=== PATIENT | female | born 2000 | race Hispanic/Latino ===

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

== ENCOUNTER 2024-02-17 22:11 | Emergency (ER) | payer OTHER ==
--- OUTSIDE RECORDS SUMMARY | 2024-02-17 22:22 | XMS REPORT | Continuity of Care Document ---
Author Name Unknown Address [address] [facility] [address] [place] [address] [facility] thconnect Address [address] [facility] [address] [place] [address] Care Team Providers Care Service Electrician Name Role Phone PCP, PATIENT DOES NOT HAVE A Primary Care Physic magui Unavailable GENNA ANG Attending Clinician Unavailable Genna Ang NP Attending Clinician [phone] Jimena Lara MD Attending Clinician [phone] Unknown, Attending Attending Clinician Unavailab JIMENA Law Attending Clinician Unavailable ALLIE DIAS Attending Clinician Unavailable ALLIE DIAS Attending Clinician Unavailable Allie Dias MD Attending Clinician [phone] Jimena Lara MD Attending Clinician [phone] JOSE MANUEL WALDRON Attending Clinician Unavailable JOSE MANUEL WALDRON Attending Clinician Unavailable ANISHA MORENO Attending Clinician Unavailable ANISHA MORENO Attending Clinician Unavailable Unknown, Attending Attending Clinician Unavailab Román Aguilar Attending Clinician [phone] ROMÁN MOON Attending Clinician Unavailable Basil Amaro PA-C Attending Clinician [phone] BASIL AMARO Attending Clinician Unavailable Doctor Unassigned, [place] Attending Clinician U navailable EVA HENRY Attending Clinician Unavailable Eva Henry MD Attending Clinician [phone] UBALDO ONEILL Attending Clinician Unavailable Ubaldo Dooley S Attending Clinician [phone] Lelo NAIDU, Sofia Attending Clinician [phone] Nurse, [facility] Attending Clinician U navailable UNKNOWN, ATTENDING Attending Clinician Unavailab trent Vinson MD, Master Rodriguez Attending Clinician [phone] Marques SHERMAN, Tamara Wong Attending Clinician Unavaila MASTER Ruvalcaba Attending Clinician Unavailable SOFIA LIND Attending Clinician Unavailable Maribel Yeager RN Attending Clinician Unavailable MORENA UMANA Attending Clinician Unavailable Dong PHOTOGRAPHIC PROCESS ATTENDANT, Morena Attending Clinician [phone] KEYLA EARLY Attending Clinician Unavailable Sharath NAIDU, Keyla Mcintosh Attending Clinician [phone] Ang Carlos MD Attending Clinician [phone] Norm SHERMAN, Robbin Attending Clinician Unavailab trent Andino, Rey [facility] Attending Clinician Un available Angi Romano MD Attending Clinician [phone] ANGI ROMANO Attending Clinician Unavailable ANGI ROMANO Attending Clinician Unavailable Room, [facility] Attending Clinician Unavailable CARLOS NOEL Attending Clinician Unavailroosevelt Noel MD, Cralos Attending Clinician [phone] Urbano Jimenez MD Attending Clinician [phone] Arya Toledo MD Attending Clinician [phone] Ultrasound, [facility] Attending Clinician UnavailAsher Ascencio MD Attending Clinician +[phone] ASHER HOROWITZ Attending Clinician Unavailable 2, [facility] Attending Clinician Unavailable Nurse, [facility] Attending Clinician Un available Lanie Hanna Attending Clinician UnavailNADEGE Parry Attending Clinician Unav ailable Ultrasound, [facility] Attending Clinician Unavaila shania Tracy MD, Nadege Attending Clinician + Daysi PHOTOGRAPHIC PROCESS ATTENDANT, Amina Wong Attending Clinician [phone] Tyree Posada Attending Clinician Unavailable BENITO FINE Attending Clinician Unavailable Neno CHOWDHURY, Angelo Farr Attending Clinician [phone] Benito Fine MD Attending Clinician [phone] Pob, [facility] Main Attending Clinician UnavailEMILEE Peraza Attending Clinician Unavailroosevelt Macias PHOTOGRAPHIC PROCESS ATTENDANT, Emilee Attending Clinician [phone] GABRIEL LAWLER Attending Clinician Unavailable Bucky PHOTOGRAPHIC PROCESS ATTENDANT, Gabriel Attending Clinician [phone] Shawn SHERMAN, Jazmin Padilla Attending Clinician Unavailab le Only, Ang Db Test Attending Clinician Unavailroosevelt German RN, Erica Sanchez Attending Clinician Unavaila shania Jasso PA-C, Yesenia Attending Clinician YESENIA JASSO Attending Clinician Unavailable CARLOS NOEL Admitting Clinician UnavailGENNA Linares Admitting Clinician Unavailable JOSE MANUEL WALDRON Admitting Clinician Unavailable EVA HENRY Admitting Clinician Unavailable UBALDO ONEILL Admitting Clinician Unavailable KEYLA EARLY Admitting Clinician Unavailable Keyla Early MD Admitting Clinician Carlos Noel MD Admitting Clinician [phone] Payers Payer Name Policy Type Policy Number Effective Date Expirati on Date Source [place] [employer] [employer] [facility] [id number] 2015 00:00:00 [facility] [id number] 2021 00:00:00 [place] [employer] [id number] 2021 00:00:00 [place] [id number] 2021 00:00:00 Problems Condition Name Condition Details Condition Category Status Onset Date Resolution Date Last Treatment Date Treating Clinician Comments Source 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 Rec[facility] 2- 00:00: 00 [facility] Maternal anemia, with delivery Maternal anemia, with delivery Disease Active 2021-03 00:00: 00 [facility] 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 patient had [facility] S/P myringotom y with insertion of tube S/P myringotom y with insertion of tube Disease Active 09-19 00:00: 00 [facility] S/P myringotom y with insertion of tube S/P myringotom y with insertion of tube Disease Resolve d 7- 00:00: 00 2022-04-30 00:00:00 2022-04-30 15:17:54 [facility] Allergic rhinitis Allergic rhinitis Disease Resolve d 2006-03 2-20 00:00: 00 2022-04-30 00:00:00 2022-04-30 15:17:59 Overview: Formattin g of this note might be different from the original. ICD10 Diagnosis Term Book Jogger Utility [facility] Maternal anemia, with delivery Maternal anemia, with delivery Disease Resolve d 2021-03 00:00: 00 2022-04-03 00:00:00 2022-04-03 13:11:19 [facility] Liveborn infant, of samson , born in hospital by vaginal delivery Liveborn , of samson , born in hospital by vaginal delivery Disease Resolve d 2021-03 2- 00:00: 00 2022-04-03 00:00:00 2022-04-03 13:11:17 [facility] Vaginal bleeding in , third trimester Vaginal bleeding in , third trimester Disease Resolve d 2021-03 2-25 00:00: 00 2022-04-03 00:00:00 2022-04-03 13:11:11 [facility] 36 weeks gestation of 36 weeks gestation of Disease Resolve d 2021-03 2- 00:00: 00 2022-04-03 00:00:00 2022-04-03 13:11:16 [facility] Placental abruption Placental abruption Disease Resolve d 2021-03 2-09 00:00: 00 2022-04-03 00:00:00 2022-04-03 13:11:06 [facility] High risk , antepartum High risk , antepartum Disease Resolve d 0 5- 00:00: 00 2022-04-03 00:00:00 2022-04-03 13:11:07 [facility] Vaginal bleeding during , antepartum Vaginal bleeding during , antepartum Disease Resolve d 2021-03 2-09 00:00: 00 2022-02-21 00:00:00 2022-02-21 14:50:01 [facility] 34 weeks gestation of 34 weeks gestation of Disease Resolve d 2021-03 2-09 00:00: 00 2022-02-21 00:00:00 2022-02-21 14:49:59 [facility] Uterine size-date discrepanc y in third trimester Uterine size-date discrepanc y in third trimester Disease Resolve d 2021-03 1-30 00:00: 00 2022-02-16 00:00:00 2022-02-16 03:03:48 [facility] Constipati on, unspecifie d constipati on type Constipati on, unspecifie d constipati on type Disease Resolve d 0 8-04 00:00: 00 2022-02-16 00:00:00 2022-02-16 03:03:46 [facility] Back pain affecting , antepartum Back pain affecting , antepartum Disease Resolve d 0 8-04 00:00: 00 2022-02-16 00:00:00 2022-02-16 03:03:47 [facility] Nausea Nausea Disease Resolve d 5-13 00:00: 00 2022-02-16 00:00:00 2022-02-16 03:03:50 [facility] of unknown anatomic location of unknown anatomic location Disease Resolve d 5-13 00:00: 00 2021-10-11 00:00:00 2021-10-11 17:52:24 [facility] Cleft palate Cleft palate Disease Resolve d 05-09 00:00: 00 2009-09-19 00:00:00 2021-09-23 00:10:28 [facility] Allergies, Adverse Reactions, Alerts Allergy Name Allergy Type Status Severity Reaction(s) Onset Date Inactive Date Treating Clinician Comments Source CLINDAMY ALFREDO DRUG INGREDI Active High Hives 12-07 00:00: 00 [facility] Clindamy alfredo Propensi ty to adverse reaction s Active Hives 12-07 00:00: 00 [facility] CEPHALOS PORINS Drug Class Active Unknown-Cmnt 05-09 00:00: 00 [facility] Cephalos porins Propensi ty to adverse reaction s Active Unknown - See comments 05-09 00:00: 00 No reaction listed on psl [facility] Cefdinir Propensi ty to adverse reaction s Active 09-24 00:00: 00 [facility] CEFDINIR DRUG INGREDI Active 09-24 00:00: 00 [facility] PENICILL INS Drug Class Active Hives 09-24 00:00: 00 [facility] SULFA (SULFONA MIDE ANTIBIOT ICS) Drug Class Active 09-24 00:00: 00 [facility] Penicill ins Propensi ty to adverse reaction s Active Hives 09-24 00:00: 00 Rash and hives as child [facility] SULFAMET HOXAZOLE -TRIMETH OPRIM DRUG Active Unknown-Cmnt 09-24 00:00: 00 [facility] Sulfamet hoxazole -Trimeth oprim Propensi ty to adverse reaction s Active Unknown - See comments 09-24 00:00: 00 [facility] Penicill ins Propensi ty to adverse reaction s Active 09-24 00:00: 00 [facility] Sulfa (Sulfona mide Antibiot ics) Propensi ty to adverse reaction s Active 09-24 00:00: 00 [facility] Social History Social Habit Start Date Stop Date Quantity Comments Source ASSERTION 2021-07-02 00:00:00 [facility] Alcoholic beverage intake 2023-12-01 00:00:00 2023-12-01 00:00:00 Current non-drinker of alcohol (finding) [facility] History of Social function 2023-07-29 00:00:00 2023-07-29 00:00:00 [facility] Alcohol intake 2023-04-04 00:00:00 2023-04-04 00:00:00 Current non-drinker of alcohol (finding) [facility] Exposure to SARS-CoV-2 (event) 2022-07-22 00:00:00 2022-08-01 14:33:00 Not sure [facility] Tobacco Comment 2021-10-11 00:00:00 2021-10-11 00:00:00 no one smokes in the home [facility] Tobacco use and exposure 2021-10-11 00:00:00 2021-10-11 00:00:00 Smokeless tobacco non-user [facility] Sex assigned at 2002 00:00:00 2000 00:00:00 [facility] Smoking Status Start Date Stop Date Source Never smoked tobacco [facility] Medications Ordered Medication Name Filled Medication Name Start Date Stop Date Current Medication? Ordering Clinician Indication Dosage Frequency Signature (SIG) Comments Components Source ciprofloxac in HCl (CIPRO) tablet 500 mg 11-30 07:38: 00 11-30 07:49 :00 No 500mg 500 mg, Oral, ONCE, 1 dose, On 12/01/23 at 0245, MAX, Reason for Anti-Infec tive: Documented Infection, Documented Infection Site: Urine, Duration of Therapy: Once (ED) [facility] ciprofloxac in HCl (CIPRO) 500 mg tablet 11-30 00:00: 00 12-11 04:59 :00 Yes [id number] 500mg Take 1 tablet by mouth every 12 (twelve) hours for 10 days. [facility] bromphenira mine-pseudo ephedrine-D M (BROMFED DM) 2-30-10 mg/5 mL syrup 10-23 00:00: 00 Yes [id number] 10mL Take 10 mL by mouth 4 (four) times daily as needed for Cold symptoms. [facility] acetaminoph en (TYLENOL) tablet 975 mg 10-15 12:15: 10-15 11:31 :00 No 975mg 975 mg, Oral, ONCE NOW, 1 dose, On Tamy 10/16/23 at 0715, [facility] ketorolac (TORADOL) tablet 20 mg 10-15 12:15: 00 10-15 11:31 :00 No 20mg 20 mg, Oral, ONCE NOW, 1 dose, On Tamy 10/16/23 at 0715, [facility] bupivacaine (preserv free) 0.5% (SENSORCAIN E MPF) injection 10 mL 10-15 12:00: 00 10-15 23:59 :00 No 10mL 10 mL, Infiltrati on, ONCE, 1 dose, On Tamy 10/16/23 at 0700, [facility] gabapentin (NEURONTIN) capsule 300 mg 10-15 11:15: 00 10-15 11:31 :00 No 300mg 300 mg, Oral, ONCE, 1 dose, On Tamy 10/16/23 at 0615, [facility] gabapentin (NEURONTIN) 100 mg capsule 10-15 00:00: 00 Yes [id number] 100mg Take 1 capsule by mouth in the morning and 1 capsule at noon and 1 capsule in the evening. [facility] ketorolac 10 mg tablet 10-15 00:00: 00 Yes [id number] 10mg Take 1 tablet by mouth every 6 (six) hours as needed for Pain (scale 4-6) or Pain (scale 7-10). [facility] acetaminoph en (TYLENOL ARTHRITIS PAIN) 650 mg CR tablet 10-15 00:00: 00 Yes [id number] 650mg Take 1 tablet by mouth every 8 (eight) hours as needed for Pain. [facility] ondansetron (ZOFRAN-ODT ) disintegrat ing tablet 4 mg 08-01 05:45: 00 08-01 04:55 :00 No 4mg 4 mg, Oral, ONCE, 1 dose, On 08/02/23 at 0045, Routine [facility] ondansetron 4 mg disintegrat ing tablet 07-31 00:00: 00 Yes [id number] 4mg Take 1 tablet by mouth every 8 (eight) hours as needed for Nausea and Vomiting (N/V) for up to 9 doses. [facility] azithromyci n 250 mg tablet 07-31 00:00: 00 08-04 04:59 :00 No [id number] 500mg Take 2 tablets by mouth in the morning for 3 days. [facility] dexamethaso ne sod phos PF injection 10 mg 07-30 05:00: 00 07-30 04:57 :00 No 10mg 10 mg, Oral, ONCE, 1 dose, On Tamy 07/31/23 at 0000, 1 mL [facility] methylPREDN ISolone (MEDROL, SARA,) 4 mg tablets 07-28 00:00: 00 Yes [id number] 99100 Take by mouth SEE-INSTRU CTIONS. follow package directions [facility] azelastine 137 mcg (0.1 %) nasal spray 07-28 00:00: 00 Yes [id number] 1{spray } Use 1 [place] in each nostril in the morning and 1 [place] in the evening. Use in each nostril as directed [facility] fluticasone propionate 50 mcg/actuati on nasal spray 07-28 00:00: 00 Yes [id number] 1{spray } Use 1 [place] in each nostril in the morning. [facility] bromphenira mine-pseudo ephedrine-D M (BROMFED DM) 2-30-10 mg/5 mL syrup 07-28 00:00: 00 10-23 00:00 :00 No [id number] 10mL Take 10 mL by mouth 4 (four) times daily as needed for Cold symptoms or Congestion /Allergies . [facility] promethazin e-dextromet horphan 6.25-15 mg/5 mL syrup 04-04 00:00: 00 04-15 05:59 :00 No [id number] 5mL Take 5 mL by mouth 4 (four) times daily for 10 days. [facility] triamcinolo ne acetonide 0.1 % ointment 11-28 00:00: 00 Yes [id number] Apply to area(s) 2 (two) times daily. [facility] clotrimazol e 1 % topical cream 11-28 00:00: 00 Yes [id number] Apply to area(s) at bedtime. [facility] meloxicam 7.5 mg tablet 11-13 00:00: 00 Yes [id number] 7.5mg Take 1 tablet by mouth once daily as needed for Pain (scale 4-6). [facility] erythromyci n base 500 mg tablet 03-19 00:00: 00 03-27 05:59 :00 No [id number] 500mg Take 1 tablet by mouth in the morning and 1 tablet in the evening. Do all this for 7 days. [facility] vitamin w/FA tablet 2021-03 00:00: 05-07 00:00 :00 No [id number] 1{tbl} Take 1 tablet by mouth in the morning. [facility] docusate 100 mg capsule 2021-03 00:00: 00 05-07 00:00 :00 No [id number] 200mg Take 2 capsules by mouth once daily as needed for Constipati on. [facility] ferrous sulfate 325 mg (65 mg iron) tablet 2021-03 00:00: 00 05-07 00:00 :00 No [id number] 325mg Take 1 tablet by mouth in the morning and 1 tablet in the evening. [facility] ibuprofen 600 mg tablet 2021-03 00:00: 00 05-07 00:00 :00 No [id number] 600mg Take 1 tablet by mouth every 6 (six) hours as needed (Pain). Take with food or milk. [facility] witch Nick (TUCKS) 50 % topical pad 2021-03 07:21: 54 Yes Topical, Q4HPRN, Starting on Fri03/05/22 at 0121, Until Discontinu ed, Routine, rectal/hem orrhoidal pain [facility] HYDROcodone -acetaminop hen (NORCO 5) 5-325 mg tablet 1 tablet 2021-03 07:21: 54 Yes 1{tbl} 1 tablet, Oral, Q6HPRN, Starting on Fri03/05/22 at 0121, Until Discontinu ed, Routine, Pain (scale 7-10) [facility] ibuprofen (IBU) tablet 600 mg 2021-03 07:21: 54 Yes 600mg 600 mg, Oral, Q6HPRN, Starting on Fri03/05/22 at 0121, Until Discontinu ed, Routine, Pain (scale 4-6) [facility] acetaminoph en (TYLENOL) tablet 650 mg 2021-03 07:21: 54 Yes 650mg 650 mg, Oral, Q6HPRN, Starting on Fri03/05/22 at 0121, Until Discontinu ed, Routine, Pain (scale 1-3) [facility] diphenhydrA MINE (BENADRYL) tablet 25 mg 2021-03 07:21: 54 Yes 25mg 25 mg, Oral, Q6HPRN, Starting on Fri03/05/22 at 0121, Until Discontinu ed, Routine, Sleep, Itching [facility] ondansetron (ZOFRAN (PF)) injection 4 mg 2021-03 07:21: 54 Yes 4mg 4 mg, Slow IV Push, Q8HPRN, Starting on Fri03/05/22 at 0121, Until Discontinu ed, Routine, Nausea and Vomiting (N/V) [facility] simethicone (GAS RELIEF (SIMETHICON E)) chewable tablet 160 mg 2021-03 07:21: 54 Yes 160mg 160 mg, Oral, PC+HSPRN, Starting on Fri03/05/22 at 012, Until Discontinu ed, Routine, Gas [facility] docusate (COLACE) capsule 200 mg 2021-03 07:21: 54 Yes 200mg 200 mg, Oral, QDAILYPRN, Starting on Fri03/05/22 at 0121, Until Discontinu ed, Routine, Constipati on [facility] magnesium hydroxide (MILK OF MAGNESIA) 400 mg/5 mL suspension 30 mL 2021-03 07:21: 54 Yes 30mL 30 mL, Oral, QDAILYPRN, Starting on Fri03/05/22 at 012, Until Discontinu ed, Routine, Constipati on [facility] benzocaine- menthol (DERMOPLAST ) 20-0.5 % topical spray 2021-03 07:21: 54 Yes Topical, PRN, Starting on Fri03/05/22 at 0121, Until Discontinu ed, Routine, Perineum discomfort [facility] bupivacaine (preserv free) (SENSORCAIN E MPF) 0.25 % (2.5 mg/mL) injection 2021-03 16:44: 00 Yes Caudal Block, ONCE INTRA PROCEDURE, Starting on Fri03/04/22 at 1044, Until Discontinu ed, Routine, Intra-op [facility] PIB fentaNYL-ro pivacaine 2 mcg/mL-0.1 % (PF) in NS 200 mL epidural infusion RTU 2021-03 15:06: 00 Yes Epidural, CONTINUOUS PRN, Starting on Fri03/04/22 at 0906, Until Discontinu ed, Routine, Intra-op [facility] butorphanol (STADOL) injection 2 mg 2021-03 21:09: 49 03-05 07:21 :57 No 2mg 2 mg, IV Push, Q2HPRN, Starting on Fri03/03/22 at 1509, Until Fri03/05/22 at 0121, Routine, Pain (scale 4-6), Pain (scale 7-10) [facility] oxytocin (PITOCIN) 30 units in NS 500 mL IV infusion 2021-03 18:09: 30 03-05 07:21 :57 No 2mU/min at 2-40 mL/hr, IV Infusion, TITRATE, Starting on Fri03/03/22 at 1209, Until Fri03/05/22 at 0121, MAX [facility] FENTanyl PF (SUBLIMAZE (PF)) injection 100 mcg 2021-03 17:13: 22 03-05 07:21 :57 No 100ug 100 mcg, Slow IV Push, Q1HPRN, Starting on Fri03/03/22 at 1113, Until Fri03/05/22 at 0121, Routine, Pain (scale 4-6), Pain (scale 7-10) [facility] ondansetron (ZOFRAN (PF)) injection 4 mg 2021-03 17:12: 08 03-05 07:21 :57 No 4mg 4 mg, Slow IV Push, Q6HPRN, Starting on Fri03/03/22 at 1112, Until Fri03/05/22 at 0121, Routine, Nausea and Vomiting (N/V) [facility] lactated ringers IV infusion 500 mL 2021-03 17:09: 30 03-05 07:21 :57 No 500mL at 999 mL/hr, 500 mL, IV Infusion, PRN - SEE INSTRUCTIO NS, Starting on Fri03/03/22 at 1109, Until Fri03/05/22 at 0121, Routine [facility] D5W-LR IV infusion 1,000 mL 2021-03 17:09: 30 03-05 07:21 :57 No 1000mL at 1-125 mL/hr, IV Infusion, TITRATE, Starting on Fri03/03/22 at 1109, Until Fri03/05/22 at 0121, Routine [facility] sodium citrate-cit hoang acid (BICITRA) 500-334 mg/5 mL solution 30 mL 2021-03 17:09: 30 03-03 19:43 :00 No 30mL 30 mL, Oral, PRE-PROCED URE ONCE, 1 dose, Starting on Fri03/03/22 at 1109, Until Fri03/03/22 at 1343, Routine, Surgery/Pr ocedure [facility] No known medications 2021-03 13:25: 21 No No known medication s [facility] No known medications 2021-03 13:11: 23 No No known medication s [facility] ZYRTEC ORAL 2021-03 11:33: 42 02-18 00:00 :00 No Take by mouth. [facility] cyclobenzap rine (FLEXERIL) tablet 10 mg 2021-03 02:00: 00 Yes 10mg 10 mg, Oral, TID, First dose on Fri02/17/22 at 2000, Until Discontinu ed, Routine [facility] metroNIDAZO LE 500 mg tablet 2021-03 00:00: 00 02-28 00:00 :00 No [id number] 500mg Take 1 tablet by mouth every 12 (twelve) hours. [facility] docusate (COLACE) capsule 100 mg 2021-03 15:00: 00 Yes 100mg 100 mg, Oral, DAILY, First dose on Fri02/17/22 at 0900, Until Discontinu ed, Routine [facility] metroNIDAZO LE (FLAGYL) tablet 500 mg 2021-03 14:00: 00 02-24 13:59 :00 No 500mg 500 mg, Oral, Q12H, 14 doses, First dose on 02/17/22 at 0800, Last dose on 02/23/22 at 2000, Routine
Reason for Anti-Infec tive: Empiric Therapy for Suspected Infection< br>Empiric Therapy Site: Pelvic
Duration of therapy: 5 days [facility] docusate (COLACE) capsule 100 mg 2021-03 04:00: 00 02-17 03:19 :00 No 100mg 100 mg, Oral, ONCE, 1 dose, On 02/16/22 at 2200, Routine [facility] acetaminoph en (TYLENOL) tablet 650 mg 2021-03 02:29: 05 Yes 650mg 650 mg, Oral, Q6HPRN, Starting on 02/16/22 at 2028, Until Discontinu ed, Routine, Pain (scale 1-3), Pain (scale 4-6) [facility] betamethaso ne acet,sod phos (CELESTONE SOLUSPAN) 6 mg/mL injection 12 mg 2021-03 21:00: 00 02-16 20:58 :00 No 12mg 12 mg, Intramuscu lar, Q24H, 1 dose, First dose on 02/16/22 at 1500, Routine [facility] acetaminoph en (TYLENOL) tablet 650 mg 2021-03 17:00: 00 02-16 16:06 :00 No 650mg 650 mg, Oral, ONCE, 1 dose, On 02/16/22 at 1100, Routine [facility] vancomycin (VANCOCIN) 1,500 mg in NaCl 0.9% (NS) 500 mL VIAL-MATE IV piggyback 2021-03 06:15: 00 02-16 14:21 :45 No 20mg/kg 1,500 mg (rounded from 1,460 mg = 20 mg/kg ?73 kg), IV Piggyback, Q8H ABX, 3 doses, First dose (after last modificati on) on 02/16/22 at 0015, Last dose on 02/16/22 at 1615, Administer over 2 Hours, 500 mL
Reas on for Anti-Infec tive: Empiric Non-Surgic al Prophylaxi s
Durat ion of therapy: 72 hours [facility] acetaminoph en (TYLENOL) tablet 1,000 mg 2021-03 06:15: 00 02-16 05:23 :00 No 1000mg 1,000 mg, Oral, ONCE, 1 dose, On 02/16/22 at 0015, Routine [facility] famotidine (PEPCID AC) tablet 40 mg 2021-03 06:00: 00 02-16 06:12 :00 No 40mg 40 mg, Oral, ONCE, 1 dose, On 02/16/22 at 0000, Routine [facility] diphenhydrA MINE (BENADRYL) tablet 50 mg 2021-03 06:00: 00 02-16 06:12 :00 No 50mg 50 mg, Oral, ONCE, 1 dose, On 02/16/22 at 0000, Routine [facility] sodium citrate-cit hoang acid (BICITRA) 500-334 mg/5 mL solution 30 mL 2021-03 01:36: 18 Yes 30mL 30 mL, Oral, PRE-PROCED URE ONCE, 1 dose, Starting on Fri02/15/22 at 1936, Until Discontinu ed, Routine, Surgery/Pr ocedure [facility] lidocaine 1% (XYLOCAINE) 10 mg/mL (1 %) injection 50 mL 2021-03 01:36: 18 Yes 50mL 50 mL, Infiltrati on, PRN - SEE INSTRUCTIO NS, Starting on Fri02/15/22 at 1936, Until Discontinu ed, Routine, Local anesthesia , For laceration repair only as a local anesthetic as indicated. [facility] lidocaine 1% (PF) (XYLOCAINE) injection 0.3 mL 2021-03 01:36: 18 Yes .3mL 0.3 mL, Infiltrati on, PRN - SEE INSTRUCTIO NS, Starting on Fri02/15/22 at 1936, Until Discontinu ed, Routine, Local anesthesia , For IV line placement only as a local anesthetic . [facility] lactated ringers IV infusion 500 mL 2021-03 01:36: 18 Yes 500mL at 999 mL/hr, 500 mL, IV Infusion, PRN - SEE INSTRUCTIO NS, Starting on Fri02/15/22 at 1936, Until Discontinu ed, Routine [facility] D5W-LR IV infusion 1,000 mL 2021-03 01:36: 18 Yes 1000mL at 1-125 mL/hr, IV Infusion, TITRATE, Starting on Fri02/15/22 at 193, Until Discontinu ed, Routine [facility] proMETHazin e (PHENERGAN) 25 mg in NS 50 mL IV piggyback (CNR) 2021-03 01:30: 00 02-16 05:23 :00 No 25mg 25 mg, IV Piggyback, at 200 mL/hr Administer over 15 Minutes, ONCE, 1 dose, On Fri02/15/22 at 1930, Routine [facility] butorphanol (STADOL) injection 1 mg 2021-03 01:30: 00 02-16 01:48 :00 No 1mg 1 mg, Intravenou s, ONCE, 1 dose, On Fri02/15/22 at 1930, Routine [facility] vancomycin (VANCOCIN) 1,500 mg in NaCl 0.9% (NS) 500 mL VIAL-MATE IV piggyback 2021-03 22:15: 00 02-16 01:35 :40 No 20mg/kg 1,500 mg (rounded from 1,460 mg = 20 mg/kg ?73 kg), IV Piggyback, Q8H ABX, 9 doses, First dose on Fri02/15/22 at 1615, Last dose on Fri02/18/22 at 0815, Administer over 90 Minutes, 500 mL
Reas on for Anti-Infec tive: Documented Infection< br>Documen rhonda Infection Site: Pelvic
Duration of Therapy: Other (see Comments) [facility] betamethaso ne acet,sod phos (CELESTONE SOLUSPAN) 6 mg/mL injection 12 mg 2021-03 22:00: 00 02-16 01:35 :40 No 12mg 12 mg, Intramuscu lar, Q24H, 2 doses, First dose on Fri02/15/22 at 1600, Last dose on Fri02/16/22 at 1600, Routine [facility] FENTanyl PF (SUBLIMAZE (PF)) injection 50 mcg 2021-03 21:45: 00 02-15 21:55 :00 No 50ug 50 mcg, Slow IV Push, ONCE, 1 dose, On Fri02/15/22 at 1545, Routine [facility] D5W-LR IV infusion 1,000 mL 2021-03 21:03: 08 02-16 01:35 :40 No 1000mL at 1-125 mL/hr, IV Infusion, TITRATE, Starting on Fri02/15/22 at 1503, Until Fri02/15/22 at 1935, Routine [facility] NaCl 0.9% (NS) IV infusion 1,000 mL 2021-03 21:00: 00 02-15 20:20 :00 No 1000mL at 999 mL/hr, IV Infusion, ONCE, 1 dose, On Fri02/15/22 at 1500, Routine [facility] ZYRTEC ORAL 2021-03 13:26: 31 Yes Take by mouth. [facility] vit no.124/iron /folic ( VITAMIN ORAL) 2021-03 14:47: 01 01-24 00:00 :00 No Take by mouth. [facility] PNV 67-iron ps-folate no.1-dha (VITAFOL ULTRA) 29 mg iron- 1 mg-200 mg Cap 2021-03 00:00: 00 02-18 00:00 :00 No 1{capsu le} Take 1 capsule by mouth daily. [facility] magnesium oxide 400 mg (241.3 mg magnesium) tablet 2021-03 00:00: 00 02-18 00:00 :00 No 400mg Take 1 tablet by mouth at bedtime. [facility] vit no.124/iron /folic ( VITAMIN ORAL) 2021-03 15:58: 54 Yes Take by mouth. [facility] PNV 102-iron-fo late-dha (VITAFOL FE PLUS) 90 mg iron- 1 mg-200 mg Cap 2021-03 0 00:00: 00 01-24 00:00 :00 No [id number] Take 1 TAB-CAP/M2 by mouth daily. [facility] ZYRTEC ORAL 9 13:15: 53 Yes Take by mouth. [facility] fluconazole (DIFLUCAN) 200 mg tablet 10-14 00:00: 00 02-06 00:00 :00 No [id number] 200mg Take 1 tablet by mouth in the morning. [facility] azithromyci n 500 mg tablet 10-14 00:00: 00 02-06 00:00 :00 No [id number] 500mg Take 1 tablet by mouth in the morning. [facility] ZYRTEC ORAL 08-30 11:23: 16 Yes Take by mouth. [facility] azithromyci n 500 mg tablet 18 00:00: 00 08-31 04:59 :00 No [id number] 500mg Take 1 tablet by mouth daily for 5 days. [facility] pyridoxine, VITAMIN B-6, (VITAMIN B-6) 25 mg tablet 07-20 00:00: 00 02-06 00:00 :00 No [id number] 25mg Take 1 tablet by mouth every 6 (six) hours as needed for Nausea and Vomiting (N/V). [facility] doxylamine (UNISOM, DOXYLAMINE, ) 25 mg tablet 07-20 00:00: 00 02-06 00:00 :00 No [id number] 25mg Take 1 tablet by mouth at bedtime as needed for Nausea and Vomiting (N/V). [facility] vit no.124/iron /folic ( VITAMIN ORAL) -12 15:10: 58 Yes Take by mouth. [facility] Immunizations Ordered Immunization Name Filled Immunization Name Date Status Comments Source TDAP 2022-02-21 00:00:00 Completed [facility] TDAP 2022-02-21 00:00:00 Completed [facility] TDAP 2022-02-21 00:00:00 Completed [facility] TDAP 2022-02-21 00:00:00 Completed [facility] TDAP 2022-02-21 00:00:00 Completed [facility] TDAP 2022-02-21 00:00:00 Completed [facility] TDAP 2022-02-21 00:00:00 Completed [facility] TDAP 2022-02-21 00:00:00 Completed [facility] TDAP 2022-02-21 00:00:00 Completed [facility] TDAP 2022-02-21 00:00:00 Completed [facility] TDAP 2022-02-21 00:00:00 Completed [facility] TDAP 2022-02-21 00:00:00 Completed [facility] TDAP 2022-02-21 00:00:00 Completed [facility] TDAP 2022-02-21 00:00:00 Completed [facility] TDAP 2022-02-21 00:00:00 Completed [facility] TDAP 2022-02-21 00:00:00 Completed [facility] TDAP 2022-02-21 00:00:00 Completed [facility] TDAP 2022-02-21 00:00:00 Completed [facility] TDAP 2022-02-21 00:00:00 Completed [facility] TDAP 2022-02-21 00:00:00 Completed [facility] TDAP 2022-02-21 00:00:00 Completed [facility] TDAP 2022-02-21 00:00:00 Completed [facility] TDAP 2022-02-21 00:00:00 Completed [facility] TDAP 2022-02-21 00:00:00 Completed [facility] TDAP 2022-02-21 00:00:00 Completed [facility] TDAP 2022-02-21 00:00:00 Completed [facility] TDAP 2022-02-21 00:00:00 Completed [facility] TDAP 2022-02-21 00:00:00 Completed [facility] TDAP 2022-02-21 00:00:00 Completed [facility] TDAP 2022-02-21 00:00:00 Completed [facility] TDAP 2022-02-21 00:00:00 Completed [facility] TDAP 2022-02-21 00:00:00 Completed [facility] MMR 2006-11-25 00:00:00 Completed [facility] DTAP 2006-11-25 00:00:00 Completed [facility] Varicella (varivax)(chicken pox) 2006-11-25 00:00:00 Completed [facility] Polio (IPV/OPV) 2006-11-25 00:00:00 Completed [facility] MMR 2006-11-25 00:00:00 Completed [facility] DTAP 2006-11-25 00:00:00 Completed [facility] Varicella (varivax)(chicken pox) 2006-11-25 00:00:00 Completed [facility] Polio (IPV/OPV) 2006-11-25 00:00:00 Completed [facility] MMR 2006-11-25 00:00:00 Completed [facility] DTAP 2006-11-25 00:00:00 Completed [facility] Varicella (varivax)(chicken pox) 2006-11-25 00:00:00 Completed [facility] Polio (IPV/OPV) 2006-11-25 00:00:00 Completed [facility] MMR 2006-11-25 00:00:00 Completed [facility] DTAP 2006-11-25 00:00:00 Completed [facility] Varicella (varivax)(chicken pox) 2006-11-25 00:00:00 Completed [facility] Polio (IPV/OPV) 2006-11-25 00:00:00 Completed [facility] MMR 2006-11-25 00:00:00 Completed [facility] DTAP 2006-11-25 00:00:00 Completed [facility] Varicella (varivax)(chicken pox) 2006-11-25 00:00:00 Completed [facility] Polio (IPV/OPV) 2006-11-25 00:00:00 Completed [facility] MMR 2006-11-25 00:00:00 Completed [facility] DTAP 2006-11-25 00:00:00 Completed [facility] Varicella (varivax)(chicken pox) 2006-11-25 00:00:00 Completed [facility] Polio (IPV/OPV) 2006-11-25 00:00:00 Completed [facility] MMR 2006-11-25 00:00:00 Completed [facility] DTAP 2006-11-25 00:00:00 Completed [facility] Varicella (varivax)(chicken pox) 2006-11-25 00:00:00 Completed [facility] Polio (IPV/OPV) 2006-11-25 00:00:00 Completed [facility] MMR 2006-11-25 00:00:00 Completed [facility] DTAP 2006-11-25 00:00:00 Completed [facility] Varicella (varivax)(chicken pox) 2006-11-25 00:00:00 Completed [facility] Polio (IPV/OPV) 2006-11-25 00:00:00 Completed [facility] MMR 2006-11-25 00:00:00 Completed [facility] DTAP 2006-11-25 00:00:00 Completed [facility] Varicella (varivax)(chicken pox) 2006-11-25 00:00:00 Completed [facility] Polio (IPV/OPV) 2006-11-25 00:00:00 Completed [facility] MMR 2006-11-25 00:00:00 Completed [facility] DTAP 2006-11-25 00:00:00 Completed [facility] Varicella (varivax)(chicken pox) 2006-11-25 00:00:00 Completed [facility] Polio (IPV/OPV) 2006-11-25 00:00:00 Completed [facility] MMR 2006-11-25 00:00:00 Completed [facility] DTAP 2006-11-25 00:00:00 Completed [facility] Varicella (varivax)(chicken pox) 2006-11-25 00:00:00 Completed [facility] Polio (IPV/OPV) 2006-11-25 00:00:00 Completed [facility] MMR 2006-11-25 00:00:00 Completed [facility] DTAP 2006-11-25 00:00:00 Completed [facility] Varicella (varivax)(chicken pox) 2006-11-25 00:00:00 Completed [facility] Polio (IPV/OPV) 2006-11-25 00:00:00 Completed [facility] MMR 2006-11-25 00:00:00 Completed [facility] DTAP 2006-11-25 00:00:00 Completed [facility] Varicella (varivax)(chicken pox) 2006-11-25 00:00:00 Completed [facility] Polio (IPV/OPV) 2006-11-25 00:00:00 Completed [facility] MMR 2006-11-25 00:00:00 Completed [facility] DTAP 2006-11-25 00:00:00 Completed [facility] Varicella (varivax)(chicken pox) 2006-11-25 00:00:00 Completed [facility] Polio (IPV/OPV) 2006-11-25 00:00:00 Completed [facility] MMR 2006-11-25 00:00:00 Completed [facility] DTAP 2006-11-25 00:00:00 Completed [facility] Varicella (varivax)(chicken pox) 2006-11-25 00:00:00 Completed [facility] Polio (IPV/OPV) 2006-11-25 00:00:00 Completed [facility] MMR 2006-11-25 00:00:00 Completed [facility] DTAP 2006-11-25 00:00:00 Completed [facility] Varicella (varivax)(chicken pox) 2006-11-25 00:00:00 Completed [facility] Polio (IPV/OPV) 2006-11-25 00:00:00 Completed [facility] MMR 2006-11-25 00:00:00 Completed [facility] DTAP 2006-11-25 00:00:00 Completed [facility] Varicella (varivax)(chicken pox) 2006-11-25 00:00:00 Completed [facility] Polio (IPV/OPV) 2006-11-25 00:00:00 Completed [facility] MMR 2006-11-25 00:00:00 Completed [facility] DTAP 2006-11-25 00:00:00 Completed [facility] Varicella (varivax)(chicken pox) 2006-11-25 00:00:00 Completed [facility] Polio (IPV/OPV) 2006-11-25 00:00:00 Completed [facility] MMR 2006-11-25 00:00:00 Completed [facility] DTAP 2006-11-25 00:00:00 Completed [facility] Varicella (varivax)(chicken pox) 2006-11-25 00:00:00 Completed [facility] Polio (IPV/OPV) 2006-11-25 00:00:00 Completed [facility] MMR 2006-11-25 00:00:00 Completed [facility] DTAP 2006-11-25 00:00:00 Completed [facility] Varicella (varivax)(chicken pox) 2006-11-25 00:00:00 Completed [facility] Polio (IPV/OPV) 2006-11-25 00:00:00 Completed [facility] MMR 2006-11-25 00:00:00 Completed [facility] DTAP 2006-11-25 00:00:00 Completed [facility] Varicella (varivax)(chicken pox) 2006-11-25 00:00:00 Completed [facility] Polio (IPV/OPV) 2006-11-25 00:00:00 Completed [facility] MMR 2006-11-25 00:00:00 Completed [facility] DTAP 2006-11-25 00:00:00 Completed [facility] Varicella (varivax)(chicken pox) 2006-11-25 00:00:00 Completed [facility] Polio (IPV/OPV) 2006-11-25 00:00:00 Completed [facility] MMR 2006-11-25 00:00:00 Completed [facility] DTAP 2006-11-25 00:00:00 Completed [facility] Varicella (varivax)(chicken pox) 2006-11-25 00:00:00 Completed [facility] Polio (IPV/OPV) 2006-11-25 00:00:00 Completed [facility] MMR 2006-11-25 00:00:00 Completed [facility] DTAP 2006-11-25 00:00:00 Completed [facility] Varicella (varivax)(chicken pox) 2006-11-25 00:00:00 Completed [facility] Polio (IPV/OPV) 2006-11-25 00:00:00 Completed [facility] MMR 2006-11-25 00:00:00 Completed [facility] DTAP 2006-11-25 00:00:00 Completed [facility] Varicella (varivax)(chicken pox) 2006-11-25 00:00:00 Completed [facility] Polio (IPV/OPV) 2006-11-25 00:00:00 Completed [facility] MMR 2006-11-25 00:00:00 Completed [facility] DTAP 2006-11-25 00:00:00 Completed [facility] Varicella (varivax)(chicken pox) 2006-11-25 00:00:00 Completed [facility] Polio (IPV/OPV) 2006-11-25 00:00:00 Completed [facility] MMR 2006-11-25 00:00:00 Completed [facility] DTAP 2006-11-25 00:00:00 Completed [facility] Varicella (varivax)(chicken pox) 2006-11-25 00:00:00 Completed [facility] Polio (IPV/OPV) 2006-11-25 00:00:00 Completed [facility] MMR 2006-11-25 00:00:00 Completed [facility] DTAP 2006-11-25 00:00:00 Completed [facility] Varicella (varivax)(chicken pox) 2006-11-25 00:00:00 Completed [facility] Polio (IPV/OPV) 2006-11-25 00:00:00 Completed [facility] MMR 2006-11-25 00:00:00 Completed [facility] DTAP 2006-11-25 00:00:00 Completed [facility] Varicella (varivax)(chicken pox) 2006-11-25 00:00:00 Completed [facility] Polio (IPV/OPV) 2006-11-25 00:00:00 Completed [facility] MMR 2006-11-25 00:00:00 Completed [facility] DTAP 2006-11-25 00:00:00 Completed [facility] Varicella (varivax)(chicken pox) 2006-11-25 00:00:00 Completed [facility] Polio (IPV/OPV) 2006-11-25 00:00:00 Completed [facility] MMR 2006-11-25 00:00:00 Completed [facility] DTAP 2006-11-25 00:00:00 Completed [facility] Varicella (varivax)(chicken pox) 2006-11-25 00:00:00 Completed [facility] Polio (IPV/OPV) 2006-11-25 00:00:00 Completed [facility] MMR 2006-11-25 00:00:00 Completed [facility] DTAP 2006-11-25 00:00:00 Completed [facility] Varicella (varivax)(chicken pox) 2006-11-25 00:00:00 Completed [facility] Polio (IPV/OPV) 2006-11-25 00:00:00 Completed [facility] MMR 2006-11-25 00:00:00 Completed [facility] DTAP 2006-11-25 00:00:00 Completed [facility] Varicella (varivax)(chicken pox) 2006-11-25 00:00:00 Completed [facility] Polio (IPV/OPV) 2006-11-25 00:00:00 Completed [facility] MMR 2006-11-25 00:00:00 Completed [facility] DTAP 2006-11-25 00:00:00 Completed [facility] Varicella (varivax)(chicken pox) 2006-11-25 00:00:00 Completed [facility] Polio (IPV/OPV) 2006-11-25 00:00:00 Completed [facility] MMR 2006-11-25 00:00:00 Completed [facility] DTAP 2006-11-25 00:00:00 Completed [facility] Varicella (varivax)(chicken pox) 2006-11-25 00:00:00 Completed [facility] Polio (IPV/OPV) 2006-11-25 00:00:00 Completed [facility] MMR 2006-11-25 00:00:00 Completed [facility] DTAP 2006-11-25 00:00:00 Completed [facility] Varicella (varivax)(chicken pox) 2006-11-25 00:00:00 Completed [facility] Polio (IPV/OPV) 2006-11-25 00:00:00 Completed [facility] MMR 2006-11-25 00:00:00 Completed [facility] DTAP 2006-11-25 00:00:00 Completed [facility] Varicella (varivax)(chicken pox) 2006-11-25 00:00:00 Completed [facility] Polio (IPV/OPV) 2006-11-25 00:00:00 Completed [facility] MMR 2006-11-25 00:00:00 Completed [facility] DTAP 2006-11-25 00:00:00 Completed [facility] Varicella (varivax)(chicken pox) 2006-11-25 00:00:00 Completed [facility] Polio (IPV/OPV) 2006-11-25 00:00:00 Completed [facility] MMR 2006-11-25 00:00:00 Completed [facility] DTAP 2006-11-25 00:00:00 Completed [facility] Varicella (varivax)(chicken pox) 2006-11-25 00:00:00 Completed [facility] Polio (IPV/OPV) 2006-11-25 00:00:00 Completed [facility] MMR 2006-11-25 00:00:00 Completed [facility] DTAP 2006-11-25 00:00:00 Completed [facility] Varicella (varivax)(chicken pox) 2006-11-25 00:00:00 Completed [facility] Polio (IPV/OPV) 2006-11-25 00:00:00 Completed [facility] MMR 2006-11-25 00:00:00 Completed [facility] DTAP 2006-11-25 00:00:00 Completed [facility] Varicella (varivax)(chicken pox) 2006-11-25 00:00:00 Completed [facility] Polio (IPV/OPV) 2006-11-25 00:00:00 Completed [facility] MMR 2006-11-25 00:00:00 Completed [facility] DTAP 2006-11-25 00:00:00 Completed [facility] Varicella (varivax)(chicken pox) 2006-11-25 00:00:00 Completed [facility] Polio (IPV/OPV) 2006-11-25 00:00:00 Completed [facility] MMR 2006-11-25 00:00:00 Completed [facility] DTAP 2006-11-25 00:00:00 Completed [facility] Varicella (varivax)(chicken pox) 2006-11-25 00:00:00 Completed [facility] Polio (IPV/OPV) 2006-11-25 00:00:00 Completed [facility] MMR 2006-11-25 00:00:00 Completed [facility] DTAP 2006-11-25 00:00:00 Completed [facility] Varicella (varivax)(chicken pox) 2006-11-25 00:00:00 Completed [facility] Polio (IPV/OPV) 2006-11-25 00:00:00 Completed [facility] MMR 2006-11-25 00:00:00 Completed [facility] DTAP 2006-11-25 00:00:00 Completed [facility] Varicella (varivax)(chicken pox) 2006-11-25 00:00:00 Completed [facility] Polio (IPV/OPV) 2006-11-25 00:00:00 Completed [facility] MMR 2006-11-25 00:00:00 Completed [facility] DTAP 2006-11-25 00:00:00 Completed [facility] Varicella (varivax)(chicken pox) 2006-11-25 00:00:00 Completed [facility] Polio (IPV/OPV) 2006-11-25 00:00:00 Completed [facility] MMR 2006-11-25 00:00:00 Completed [facility] DTAP 2006-11-25 00:00:00 Completed [facility] Varicella (varivax)(chicken pox) 2006-11-25 00:00:00 Completed [facility] Polio (IPV/OPV) 2006-11-25 00:00:00 Completed [facility] MMR 2006-11-25 00:00:00 Completed [facility] DTAP 2006-11-25 00:00:00 Completed [facility] Varicella (varivax)(chicken pox) 2006-11-25 00:00:00 Completed [facility] Polio (IPV/OPV) 2006-11-25 00:00:00 Completed [facility] MMR 2006-11-25 00:00:00 Completed [facility] DTAP 2006-11-25 00:00:00 Completed [facility] Varicella (varivax)(chicken pox) 2006-11-25 00:00:00 Completed [facility] Polio (IPV/OPV) 2006-11-25 00:00:00 Completed [facility] MMR 2006-11-25 00:00:00 Completed [facility] DTAP 2006-11-25 00:00:00 Completed [facility] Varicella (varivax)(chicken pox) 2006-11-25 00:00:00 Completed [facility] Polio (IPV/OPV) 2006-11-25 00:00:00 Completed [facility] MMR 2006-11-25 00:00:00 Completed [facility] DTAP 2006-11-25 00:00:00 Completed [facility] Varicella (varivax)(chicken pox) 2006-11-25 00:00:00 Completed [facility] Polio (IPV/OPV) 2006-11-25 00:00:00 Completed [facility] MMR 2006-11-25 00:00:00 Completed [facility] DTAP 2006-11-25 00:00:00 Completed [facility] Varicella (varivax)(chicken pox) 2006-11-25 00:00:00 Completed [facility] Polio (IPV/OPV) 2006-11-25 00:00:00 Completed [facility] MMR 2006-11-25 00:00:00 Completed [facility] DTAP 2006-11-25 00:00:00 Completed [facility] Varicella (varivax)(chicken pox) 2006-11-25 00:00:00 Completed [facility] Polio (IPV/OPV) 2006-11-25 00:00:00 Completed [facility] MMR 2006-11-25 00:00:00 Completed [facility] DTAP 2006-11-25 00:00:00 Completed [facility] Varicella (varivax)(chicken pox) 2006-11-25 00:00:00 Completed [facility] Polio (IPV/OPV) 2006-11-25 00:00:00 Completed [facility] MMR 2006-11-25 00:00:00 Completed [facility] DTAP 2006-11-25 00:00:00 Completed [facility] Varicella (varivax)(chicken pox) 2006-11-25 00:00:00 Completed [facility] Polio (IPV/OPV) 2006-11-25 00:00:00 Completed [facility] MMR 2006-11-25 00:00:00 Completed [facility] DTAP 2006-11-25 00:00:00 Completed [facility] Varicella (varivax)(chicken pox) 2006-11-25 00:00:00 Completed [facility] Polio (IPV/OPV) 2006-11-25 00:00:00 Completed [facility] MMR 2006-11-25 00:00:00 Completed [facility] DTAP 2006-11-25 00:00:00 Completed [facility] Varicella (varivax)(chicken pox) 2006-11-25 00:00:00 Completed [facility] Polio (IPV/OPV) 2006-11-25 00:00:00 Completed [facility] MMR 2006-11-25 00:00:00 Completed [facility] DTAP 2006-11-25 00:00:00 Completed [facility] Varicella (varivax)(chicken pox) 2006-11-25 00:00:00 Completed [facility] Polio (IPV/OPV) 2006-11-25 00:00:00 Completed [facility] MMR 2006-11-25 00:00:00 Completed [facility] DTAP 2006-11-25 00:00:00 Completed [facility] Varicella (varivax)(chicken pox) 2006-11-25 00:00:00 Completed [facility] Polio (IPV/OPV) 2006-11-25 00:00:00 Completed [facility] DTAP 2005-10-15 00:00:00 Completed [facility] HEPATITIS A 2005-10-15 00:00:00 Completed [facility] Pneumococcal 7 Conjugate, PCV7 (Prevnar7) 2005-10-15 00:00:00 Completed [facility] DTAP 2005-10-15 00:00:00 Completed [facility] HEPATITIS A 2005-10-15 00:00:00 Completed [facility] Pneumococcal 7 Conjugate, PCV7 (Prevnar7) 2005-10-15 00:00:00 Completed [facility] DTAP 2005-10-15 00:00:00 Completed [facility] HEPATITIS A 2005-10-15 00:00:00 Completed [facility] Pneumococcal 7 Conjugate, PCV7 (Prevnar7) 2005-10-15 00:00:00 Completed [facility] DTAP 2005-10-15 00:00:00 Completed [facility] HEPATITIS A 2005-10-15 00:00:00 Completed [facility] Pneumococcal 7 Conjugate, PCV7 (Prevnar7) 2005-10-15 00:00:00 Completed [facility] DTAP 2005-10-15 00:00:00 Completed [facility] HEPATITIS A 2005-10-15 00:00:00 Completed [facility] Pneumococcal 7 Conjugate, PCV7 (Prevnar7) 2005-10-15 00:00:00 Completed [facility] DTAP 2005-10-15 00:00:00 Completed [facility] HEPATITIS A 2005-10-15 00:00:00 Completed [facility] Pneumococcal 7 Conjugate, PCV7 (Prevnar7) 2005-10-15 00:00:00 Completed [facility] DTAP 2005-10-15 00:00:00 Completed [facility] HEPATITIS A 2005-10-15 00:00:00 Completed [facility] Pneumococcal 7 Conjugate, PCV7 (Prevnar7) 2005-10-15 00:00:00 Completed [facility] DTAP 2005-10-15 00:00:00 Completed [facility] HEPATITIS A 2005-10-15 00:00:00 Completed [facility] Pneumococcal 7 Conjugate, PCV7 (Prevnar7) 2005-10-15 00:00:00 Completed [facility] DTAP 2005-10-15 00:00:00 Completed [facility] HEPATITIS A 2005-10-15 00:00:00 Completed [facility] Pneumococcal 7 Conjugate, PCV7 (Prevnar7) 2005-10-15 00:00:00 Completed [facility] DTAP 2005-10-15 00:00:00 Completed [facility] HEPATITIS A 2005-10-15 00:00:00 Completed [facility] Pneumococcal 7 Conjugate, PCV7 (Prevnar7) 2005-10-15 00:00:00 Completed [facility] DTAP 2005-10-15 00:00:00 Completed [facility] HEPATITIS A 2005-10-15 00:00:00 Completed [facility] Pneumococcal 7 Conjugate, PCV7 (Prevnar7) 2005-10-15 00:00:00 Completed [facility] DTAP 2005-10-15 00:00:00 Completed [facility] HEPATITIS A 2005-10-15 00:00:00 Completed [facility] Pneumococcal 7 Conjugate, PCV7 (Prevnar7) 2005-10-15 00:00:00 Completed [facility] DTAP 2005-10-15 00:00:00 Completed [facility] HEPATITIS A 2005-10-15 00:00:00 Completed [facility] Pneumococcal 7 Conjugate, PCV7 (Prevnar7) 2005-10-15 00:00:00 Completed [facility] DTAP 2005-10-15 00:00:00 Completed [facility] HEPATITIS A 2005-10-15 00:00:00 Completed [facility] Pneumococcal 7 Conjugate, PCV7 (Prevnar7) 2005-10-15 00:00:00 Completed [facility] DTAP 2005-10-15 00:00:00 Completed [facility] HEPATITIS A 2005-10-15 00:00:00 Completed [facility] Pneumococcal 7 Conjugate, PCV7 (Prevnar7) 2005-10-15 00:00:00 Completed [facility] DTAP 2005-10-15 00:00:00 Completed [facility] HEPATITIS A 2005-10-15 00:00:00 Completed [facility] Pneumococcal 7 Conjugate, PCV7 (Prevnar7) 2005-10-15 00:00:00 Completed [facility] DTAP 2005-10-15 00:00:00 Completed [facility] HEPATITIS A 2005-10-15 00:00:00 Completed [facility] Pneumococcal 7 Conjugate, PCV7 (Prevnar7) 2005-10-15 00:00:00 Completed [facility] DTAP 2005-10-15 00:00:00 Completed [facility] HEPATITIS A 2005-10-15 00:00:00 Completed [facility] Pneumococcal 7 Conjugate, PCV7 (Prevnar7) 2005-10-15 00:00:00 Completed [facility] DTAP 2005-10-15 00:00:00 Completed [facility] HEPATITIS A 2005-10-15 00:00:00 Completed [facility] Pneumococcal 7 Conjugate, PCV7 (Prevnar7) 2005-10-15 00:00:00 Completed [facility] DTAP 2005-10-15 00:00:00 Completed [facility] HEPATITIS A 2005-10-15 00:00:00 Completed [facility] Pneumococcal 7 Conjugate, PCV7 (Prevnar7) 2005-10-15 00:00:00 Completed [facility] DTAP 2005-10-15 00:00:00 Completed [facility] HEPATITIS A 2005-10-15 00:00:00 Completed [facility] Pneumococcal 7 Conjugate, PCV7 (Prevnar7) 2005-10-15 00:00:00 Completed [facility] DTAP 2005-10-15 00:00:00 Completed [facility] HEPATITIS A 2005-10-15 00:00:00 Completed [facility] Pneumococcal 7 Conjugate, PCV7 (Prevnar7) 2005-10-15 00:00:00 Completed [facility] DTAP 2005-10-15 00:00:00 Completed [facility] HEPATITIS A 2005-10-15 00:00:00 Completed [facility] Pneumococcal 7 Conjugate, PCV7 (Prevnar7) 2005-10-15 00:00:00 Completed [facility] DTAP 2005-10-15 00:00:00 Completed [facility] HEPATITIS A 2005-10-15 00:00:00 Completed [facility] Pneumococcal 7 Conjugate, PCV7 (Prevnar7) 2005-10-15 00:00:00 Completed [facility] DTAP 2005-10-15 00:00:00 Completed [facility] HEPATITIS A 2005-10-15 00:00:00 Completed [facility] Pneumococcal 7 Conjugate, PCV7 (Prevnar7) 2005-10-15 00:00:00 Completed [facility] DTAP 2005-10-15 00:00:00 Completed [facility] HEPATITIS A 2005-10-15 00:00:00 Completed [facility] Pneumococcal 7 Conjugate, PCV7 (Prevnar7) 2005-10-15 00:00:00 Completed [facility] DTAP 2005-10-15 00:00:00 Completed [facility] HEPATITIS A 2005-10-15 00:00:00 Completed [facility] Pneumococcal 7 Conjugate, PCV7 (Prevnar7) 2005-10-15 00:00:00 Completed [facility] DTAP 2005-10-15 00:00:00 Completed [facility] HEPATITIS A 2005-10-15 00:00:00 Completed [facility] Pneumococcal 7 Conjugate, PCV7 (Prevnar7) 2005-10-15 00:00:00 Completed [facility] DTAP 2005-10-15 00:00:00 Completed [facility] HEPATITIS A 2005-10-15 00:00:00 Completed [facility] Pneumococcal 7 Conjugate, PCV7 (Prevnar7) 2005-10-15 00:00:00 Completed [facility] DTAP 2005-10-15 00:00:00 Completed [facility] HEPATITIS A 2005-10-15 00:00:00 Completed [facility] Pneumococcal 7 Conjugate, PCV7 (Prevnar7) 2005-10-15 00:00:00 Completed [facility] DTAP 2005-10-15 00:00:00 Completed [facility] HEPATITIS A 2005-10-15 00:00:00 Completed [facility] Pneumococcal 7 Conjugate, PCV7 (Prevnar7) 2005-10-15 00:00:00 Completed [facility] DTAP 2005-10-15 00:00:00 Completed [facility] HEPATITIS A 2005-10-15 00:00:00 Completed [facility] Pneumococcal 7 Conjugate, PCV7 (Prevnar7) 2005-10-15 00:00:00 Completed [facility] DTAP 2005-10-15 00:00:00 Completed [facility] HEPATITIS A 2005-10-15 00:00:00 Completed [facility] Pneumococcal 7 Conjugate, PCV7 (Prevnar7) 2005-10-15 00:00:00 Completed [facility] DTAP 2005-10-15 00:00:00 Completed [facility] HEPATITIS A 2005-10-15 00:00:00 Completed [facility] Pneumococcal 7 Conjugate, PCV7 (Prevnar7) 2005-10-15 00:00:00 Completed [facility] DTAP 2005-10-15 00:00:00 Completed [facility] HEPATITIS A 2005-10-15 00:00:00 Completed [facility] Pneumococcal 7 Conjugate, PCV7 (Prevnar7) 2005-10-15 00:00:00 Completed [facility] DTAP 2005-10-15 00:00:00 Completed [facility] HEPATITIS A 2005-10-15 00:00:00 Completed [facility] Pneumococcal 7 Conjugate, PCV7 (Prevnar7) 2005-10-15 00:00:00 Completed [facility] DTAP 2005-10-15 00:00:00 Completed [facility] HEPATITIS A 2005-10-15 00:00:00 Completed [facility] Pneumococcal 7 Conjugate, PCV7 (Prevnar7) 2005-10-15 00:00:00 Completed [facility] DTAP 2005-10-15 00:00:00 Completed [facility] HEPATITIS A 2005-10-15 00:00:00 Completed [facility] Pneumococcal 7 Conjugate, PCV7 (Prevnar7) 2005-10-15 00:00:00 Completed [facility] DTAP 2005-10-15 00:00:00 Completed [facility] HEPATITIS A 2005-10-15 00:00:00 Completed [facility] Pneumococcal 7 Conjugate, PCV7 (Prevnar7) 2005-10-15 00:00:00 Completed [facility] DTAP 2005-10-15 00:00:00 Completed [facility] HEPATITIS A 2005-10-15 00:00:00 Completed [facility] Pneumococcal 7 Conjugate, PCV7 (Prevnar7) 2005-10-15 00:00:00 Completed [facility] DTAP 2005-10-15 00:00:00 Completed [facility] HEPATITIS A 2005-10-15 00:00:00 Completed [facility] Pneumococcal 7 Conjugate, PCV7 (Prevnar7) 2005-10-15 00:00:00 Completed [facility] DTAP 2005-10-15 00:00:00 Completed [facility] HEPATITIS A 2005-10-15 00:00:00 Completed [facility] Pneumococcal 7 Conjugate, PCV7 (Prevnar7) 2005-10-15 00:00:00 Completed [facility] DTAP 2005-10-15 00:00:00 Completed [facility] HEPATITIS A 2005-10-15 00:00:00 Completed [facility] Pneumococcal 7 Conjugate, PCV7 (Prevnar7) 2005-10-15 00:00:00 Completed [facility] DTAP 2005-10-15 00:00:00 Completed [facility] HEPATITIS A 2005-10-15 00:00:00 Completed [facility] Pneumococcal 7 Conjugate, PCV7 (Prevnar7) 2005-10-15 00:00:00 Completed [facility] DTAP 2005-10-15 00:00:00 Completed [facility] HEPATITIS A 2005-10-15 00:00:00 Completed [facility] Pneumococcal 7 Conjugate, PCV7 (Prevnar7) 2005-10-15 00:00:00 Completed [facility] DTAP 2005-10-15 00:00:00 Completed [facility] HEPATITIS A 2005-10-15 00:00:00 Completed [facility] Pneumococcal 7 Conjugate, PCV7 (Prevnar7) 2005-10-15 00:00:00 Completed [facility] DTAP 2005-10-15 00:00:00 Completed [facility] HEPATITIS A 2005-10-15 00:00:00 Completed [facility] Pneumococcal 7 Conjugate, PCV7 (Prevnar7) 2005-10-15 00:00:00 Completed [facility] DTAP 2005-10-15 00:00:00 Completed [facility] HEPATITIS A 2005-10-15 00:00:00 Completed [facility] Pneumococcal 7 Conjugate, PCV7 (Prevnar7) 2005-10-15 00:00:00 Completed [facility] DTAP 2005-10-15 00:00:00 Completed [facility] HEPATITIS A 2005-10-15 00:00:00 Completed [facility] Pneumococcal 7 Conjugate, PCV7 (Prevnar7) 2005-10-15 00:00:00 Completed [facility] DTAP 2005-10-15 00:00:00 Completed [facility] HEPATITIS A 2005-10-15 00:00:00 Completed [facility] Pneumococcal 7 Conjugate, PCV7 (Prevnar7) 2005-10-15 00:00:00 Completed [facility] DTAP 2005-10-15 00:00:00 Completed [facility] HEPATITIS A 2005-10-15 00:00:00 Completed [facility] Pneumococcal 7 Conjugate, PCV7 (Prevnar7) 2005-10-15 00:00:00 Completed [facility] DTAP 2005-10-15 00:00:00 Completed [facility] HEPATITIS A 2005-10-15 00:00:00 Completed [facility] Pneumococcal 7 Conjugate, PCV7 (Prevnar7) 2005-10-15 00:00:00 Completed [facility] DTAP 2005-10-15 00:00:00 Completed [facility] HEPATITIS A 2005-10-15 00:00:00 Completed [facility] Pneumococcal 7 Conjugate, PCV7 (Prevnar7) 2005-10-15 00:00:00 Completed [facility] DTAP 2005-10-15 00:00:00 Completed [facility] HEPATITIS A 2005-10-15 00:00:00 Completed [facility] Pneumococcal 7 Conjugate, PCV7 (Prevnar7) 2005-10-15 00:00:00 Completed [facility] DTAP 2005-10-15 00:00:00 Completed [facility] HEPATITIS A 2005-10-15 00:00:00 Completed [facility] Pneumococcal 7 Conjugate, PCV7 (Prevnar7) 2005-10-15 00:00:00 Completed [facility] DTAP 2005-10-15 00:00:00 Completed [facility] HEPATITIS A 2005-10-15 00:00:00 Completed [facility] Pneumococcal 7 Conjugate, PCV7 (Prevnar7) 2005-10-15 00:00:00 Completed [facility] DTAP 2005-10-15 00:00:00 Completed [facility] HEPATITIS A 2005-10-15 00:00:00 Completed [facility] Pneumococcal 7 Conjugate, PCV7 (Prevnar7) 2005-10-15 00:00:00 Completed [facility] DTAP 2005-10-15 00:00:00 Completed [facility] HEPATITIS A 2005-10-15 00:00:00 Completed [facility] Pneumococcal 7 Conjugate, PCV7 (Prevnar7) 2005-10-15 00:00:00 Completed [facility] DTAP 2005-10-15 00:00:00 Completed [facility] HEPATITIS A 2005-10-15 00:00:00 Completed [facility] Pneumococcal 7 Conjugate, PCV7 (Prevnar7) 2005-10-15 00:00:00 Completed [facility] DTAP 2005-03-22 00:00:00 Completed [facility] Pneumococcal 7 Conjugate, PCV7 (Prevnar7) 2005-03-22 00:00:00 Completed [facility] HEPATITIS A 2005-03-22 00:00:00 Completed [facility] DTAP 2005-03-22 00:00:00 Completed [facility] Pneumococcal 7 Conjugate, PCV7 (Prevnar7) 2005-03-22 00:00:00 Completed [facility] HEPATITIS A 2005-03-22 00:00:00 Completed [facility] DTAP 2005-03-22 00:00:00 Completed [facility] Pneumococcal 7 Conjugate, PCV7 (Prevnar7) 2005-03-22 00:00:00 Completed [facility] HEPATITIS A 2005-03-22 00:00:00 Completed [facility] DTAP 2005-03-22 00:00:00 Completed [facility] Pneumococcal 7 Conjugate, PCV7 (Prevnar7) 2005-03-22 00:00:00 Completed [facility] HEPATITIS A 2005-03-22 00:00:00 Completed [facility] DTAP 2005-03-22 00:00:00 Completed [facility] Pneumococcal 7 Conjugate, PCV7 (Prevnar7) 2005-03-22 00:00:00 Completed [facility] HEPATITIS A 2005-03-22 00:00:00 Completed [facility] DTAP 2005-03-22 00:00:00 Completed [facility] Pneumococcal 7 Conjugate, PCV7 (Prevnar7) 2005-03-22 00:00:00 Completed [facility] HEPATITIS A 2005-03-22 00:00:00 Completed [facility] DTAP 2005-03-22 00:00:00 Completed [facility] Pneumococcal 7 Conjugate, PCV7 (Prevnar7) 2005-03-22 00:00:00 Completed [facility] HEPATITIS A 2005-03-22 00:00:00 Completed [facility] DTAP 2005-03-22 00:00:00 Completed [facility] Pneumococcal 7 Conjugate, PCV7 (Prevnar7) 2005-03-22 00:00:00 Completed [facility] HEPATITIS A 2005-03-22 00:00:00 Completed [facility] DTAP 2005-03-22 00:00:00 Completed [facility] Pneumococcal 7 Conjugate, PCV7 (Prevnar7) 2005-03-22 00:00:00 Completed [facility] HEPATITIS A 2005-03-22 00:00:00 Completed [facility] DTAP 2005-03-22 00:00:00 Completed [facility] Pneumococcal 7 Conjugate, PCV7 (Prevnar7) 2005-03-22 00:00:00 Completed [facility] HEPATITIS A 2005-03-22 00:00:00 Completed [facility] DTAP 2005-03-22 00:00:00 Completed [facility] Pneumococcal 7 Conjugate, PCV7 (Prevnar7) 2005-03-22 00:00:00 Completed [facility] HEPATITIS A 2005-03-22 00:00:00 Completed [facility] DTAP 2005-03-22 00:00:00 Completed [facility] Pneumococcal 7 Conjugate, PCV7 (Prevnar7) 2005-03-22 00:00:00 Completed [facility] HEPATITIS A 2005-03-22 00:00:00 Completed [facility] DTAP 2005-03-22 00:00:00 Completed [facility] Pneumococcal 7 Conjugate, PCV7 (Prevnar7) 2005-03-22 00:00:00 Completed [facility] HEPATITIS A 2005-03-22 00:00:00 Completed [facility] DTAP 2005-03-22 00:00:00 Completed [facility] Pneumococcal 7 Conjugate, PCV7 (Prevnar7) 2005-03-22 00:00:00 Completed [facility] HEPATITIS A 2005-03-22 00:00:00 Completed [facility] DTAP 2005-03-22 00:00:00 Completed [facility] Pneumococcal 7 Conjugate, PCV7 (Prevnar7) 2005-03-22 00:00:00 Completed [facility] HEPATITIS A 2005-03-22 00:00:00 Completed [facility] DTAP 2005-03-22 00:00:00 Completed [facility] Pneumococcal 7 Conjugate, PCV7 (Prevnar7) 2005-03-22 00:00:00 Completed [facility] HEPATITIS A 2005-03-22 00:00:00 Completed [facility] DTAP 2005-03-22 00:00:00 Completed [facility] Pneumococcal 7 Conjugate, PCV7 (Prevnar7) 2005-03-22 00:00:00 Completed [facility] HEPATITIS A 2005-03-22 00:00:00 Completed [facility] DTAP 2005-03-22 00:00:00 Completed [facility] Pneumococcal 7 Conjugate, PCV7 (Prevnar7) 2005-03-22 00:00:00 Completed [facility] HEPATITIS A 2005-03-22 00:00:00 Completed [facility] DTAP 2005-03-22 00:00:00 Completed [facility] Pneumococcal 7 Conjugate, PCV7 (Prevnar7) 2005-03-22 00:00:00 Completed [facility] HEPATITIS A 2005-03-22 00:00:00 Completed [facility] DTAP 2005-03-22 00:00:00 Completed [facility] Pneumococcal 7 Conjugate, PCV7 (Prevnar7) 2005-03-22 00:00:00 Completed [facility] HEPATITIS A 2005-03-22 00:00:00 Completed [facility] DTAP 2005-03-22 00:00:00 Completed [facility] Pneumococcal 7 Conjugate, PCV7 (Prevnar7) 2005-03-22 00:00:00 Completed [facility] HEPATITIS A 2005-03-22 00:00:00 Completed [facility] DTAP 2005-03-22 00:00:00 Completed [facility] Pneumococcal 7 Conjugate, PCV7 (Prevnar7) 2005-03-22 00:00:00 Completed [facility] HEPATITIS A 2005-03-22 00:00:00 Completed [facility] DTAP 2005-03-22 00:00:00 Completed [facility] Pneumococcal 7 Conjugate, PCV7 (Prevnar7) 2005-03-22 00:00:00 Completed [facility] HEPATITIS A 2005-03-22 00:00:00 Completed [facility] DTAP 2005-03-22 00:00:00 Completed [facility] Pneumococcal 7 Conjugate, PCV7 (Prevnar7) 2005-03-22 00:00:00 Completed [facility] HEPATITIS A 2005-03-22 00:00:00 Completed [facility] DTAP 2005-03-22 00:00:00 Completed [facility] Pneumococcal 7 Conjugate, PCV7 (Prevnar7) 2005-03-22 00:00:00 Completed [facility] HEPATITIS A 2005-03-22 00:00:00 Completed [facility] DTAP 2005-03-22 00:00:00 Completed [facility] Pneumococcal 7 Conjugate, PCV7 (Prevnar7) 2005-03-22 00:00:00 Completed [facility] HEPATITIS A 2005-03-22 00:00:00 Completed [facility] DTAP 2005-03-22 00:00:00 Completed [facility] Pneumococcal 7 Conjugate, PCV7 (Prevnar7) 2005-03-22 00:00:00 Completed [facility] HEPATITIS A 2005-03-22 00:00:00 Completed [facility] DTAP 2005-03-22 00:00:00 Completed [facility] Pneumococcal 7 Conjugate, PCV7 (Prevnar7) 2005-03-22 00:00:00 Completed [facility] HEPATITIS A 2005-03-22 00:00:00 Completed [facility] DTAP 2005-03-22 00:00:00 Completed [facility] Pneumococcal 7 Conjugate, PCV7 (Prevnar7) 2005-03-22 00:00:00 Completed [facility] HEPATITIS A 2005-03-22 00:00:00 Completed [facility] DTAP 2005-03-22 00:00:00 Completed [facility] Pneumococcal 7 Conjugate, PCV7 (Prevnar7) 2005-03-22 00:00:00 Completed [facility] HEPATITIS A 2005-03-22 00:00:00 Completed [facility] DTAP 2005-03-22 00:00:00 Completed [facility] Pneumococcal 7 Conjugate, PCV7 (Prevnar7) 2005-03-22 00:00:00 Completed [facility] HEPATITIS A 2005-03-22 00:00:00 Completed [facility] DTAP 2005-03-22 00:00:00 Completed [facility] Pneumococcal 7 Conjugate, PCV7 (Prevnar7) 2005-03-22 00:00:00 Completed [facility] HEPATITIS A 2005-03-22 00:00:00 Completed [facility] DTAP 2005-03-22 00:00:00 Completed [facility] Pneumococcal 7 Conjugate, PCV7 (Prevnar7) 2005-03-22 00:00:00 Completed [facility] HEPATITIS A 2005-03-22 00:00:00 Completed [facility] DTAP 2005-03-22 00:00:00 Completed [facility] Pneumococcal 7 Conjugate, PCV7 (Prevnar7) 2005-03-22 00:00:00 Completed [facility] HEPATITIS A 2005-03-22 00:00:00 Completed [facility] DTAP 2005-03-22 00:00:00 Completed [facility] Pneumococcal 7 Conjugate, PCV7 (Prevnar7) 2005-03-22 00:00:00 Completed [facility] HEPATITIS A 2005-03-22 00:00:00 Completed [facility] DTAP 2005-03-22 00:00:00 Completed [facility] Pneumococcal 7 Conjugate, PCV7 (Prevnar7) 2005-03-22 00:00:00 Completed [facility] HEPATITIS A 2005-03-22 00:00:00 Completed [facility] DTAP 2005-03-22 00:00:00 Completed [facility] Pneumococcal 7 Conjugate, PCV7 (Prevnar7) 2005-03-22 00:00:00 Completed [facility] HEPATITIS A 2005-03-22 00:00:00 Completed [facility] DTAP 2005-03-22 00:00:00 Completed [facility] Pneumococcal 7 Conjugate, PCV7 (Prevnar7) 2005-03-22 00:00:00 Completed [facility] HEPATITIS A 2005-03-22 00:00:00 Completed [facility] DTAP 2005-03-22 00:00:00 Completed [facility] Pneumococcal 7 Conjugate, PCV7 (Prevnar7) 2005-03-22 00:00:00 Completed [facility] HEPATITIS A 2005-03-22 00:00:00 Completed [facility] DTAP 2005-03-22 00:00:00 Completed [facility] Pneumococcal 7 Conjugate, PCV7 (Prevnar7) 2005-03-22 00:00:00 Completed [facility] HEPATITIS A 2005-03-22 00:00:00 Completed [facility] DTAP 2005-03-22 00:00:00 Completed [facility] Pneumococcal 7 Conjugate, PCV7 (Prevnar7) 2005-03-22 00:00:00 Completed [facility] HEPATITIS A 2005-03-22 00:00:00 Completed [facility] DTAP 2005-03-22 00:00:00 Completed [facility] Pneumococcal 7 Conjugate, PCV7 (Prevnar7) 2005-03-22 00:00:00 Completed [facility] HEPATITIS A 2005-03-22 00:00:00 Completed [facility] DTAP 2005-03-22 00:00:00 Completed [facility] Pneumococcal 7 Conjugate, PCV7 (Prevnar7) 2005-03-22 00:00:00 Completed [facility] HEPATITIS A 2005-03-22 00:00:00 Completed [facility] DTAP 2005-03-22 00:00:00 Completed [facility] Pneumococcal 7 Conjugate, PCV7 (Prevnar7) 2005-03-22 00:00:00 Completed [facility] HEPATITIS A 2005-03-22 00:00:00 Completed [facility] DTAP 2005-03-22 00:00:00 Completed [facility] Pneumococcal 7 Conjugate, PCV7 (Prevnar7) 2005-03-22 00:00:00 Completed [facility] HEPATITIS A 2005-03-22 00:00:00 Completed [facility] DTAP 2005-03-22 00:00:00 Completed [facility] Pneumococcal 7 Conjugate, PCV7 (Prevnar7) 2005-03-22 00:00:00 Completed [facility] HEPATITIS A 2005-03-22 00:00:00 Completed [facility] DTAP 2005-03-22 00:00:00 Completed [facility] Pneumococcal 7 Conjugate, PCV7 (Prevnar7) 2005-03-22 00:00:00 Completed [facility] HEPATITIS A 2005-03-22 00:00:00 Completed [facility] DTAP 2005-03-22 00:00:00 Completed [facility] Pneumococcal 7 Conjugate, PCV7 (Prevnar7) 2005-03-22 00:00:00 Completed [facility] HEPATITIS A 2005-03-22 00:00:00 Completed [facility] DTAP 2005-03-22 00:00:00 Completed [facility] Pneumococcal 7 Conjugate, PCV7 (Prevnar7) 2005-03-22 00:00:00 Completed [facility] HEPATITIS A 2005-03-22 00:00:00 Completed [facility] DTAP 2005-03-22 00:00:00 Completed [facility] Pneumococcal 7 Conjugate, PCV7 (Prevnar7) 2005-03-22 00:00:00 Completed [facility] HEPATITIS A 2005-03-22 00:00:00 Completed [facility] DTAP 2005-03-22 00:00:00 Completed [facility] Pneumococcal 7 Conjugate, PCV7 (Prevnar7) 2005-03-22 00:00:00 Completed [facility] HEPATITIS A 2005-03-22 00:00:00 Completed [facility] DTAP 2005-03-22 00:00:00 Completed [facility] Pneumococcal 7 Conjugate, PCV7 (Prevnar7) 2005-03-22 00:00:00 Completed [facility] HEPATITIS A 2005-03-22 00:00:00 Completed [facility] DTAP 2005-03-22 00:00:00 Completed [facility] Pneumococcal 7 Conjugate, PCV7 (Prevnar7) 2005-03-22 00:00:00 Completed [facility] HEPATITIS A 2005-03-22 00:00:00 Completed [facility] DTAP 2005-03-22 00:00:00 Completed [facility] Pneumococcal 7 Conjugate, PCV7 (Prevnar7) 2005-03-22 00:00:00 Completed [facility] HEPATITIS A 2005-03-22 00:00:00 Completed [facility] DTAP 2005-03-22 00:00:00 Completed [facility] Pneumococcal 7 Conjugate, PCV7 (Prevnar7) 2005-03-22 00:00:00 Completed [facility] HEPATITIS A 2005-03-22 00:00:00 Completed [facility] DTAP 2005-03-22 00:00:00 Completed [facility] Pneumococcal 7 Conjugate, PCV7 (Prevnar7) 2005-03-22 00:00:00 Completed [facility] HEPATITIS A 2005-03-22 00:00:00 Completed [facility] DTAP 2005-03-22 00:00:00 Completed [facility] Pneumococcal 7 Conjugate, PCV7 (Prevnar7) 2005-03-22 00:00:00 Completed [facility] HEPATITIS A 2005-03-22 00:00:00 Completed [facility] DTAP 2005-03-22 00:00:00 Completed [facility] Pneumococcal 7 Conjugate, PCV7 (Prevnar7) 2005-03-22 00:00:00 Completed [facility] HEPATITIS A 2005-03-22 00:00:00 Completed [facility] DTAP 2005-03-22 00:00:00 Completed [facility] Pneumococcal 7 Conjugate, PCV7 (Prevnar7) 2005-03-22 00:00:00 Completed [facility] HEPATITIS A 2005-03-22 00:00:00 Completed [facility] HIB 4 Dose Schedule 2003-12-27 00:00:00 Completed [facility] MMR 2003-12-27 00:00:00 Completed [facility] Varicella (varivax)(chicken pox) 2003-12-27 00:00:00 Completed [facility] HIB 4 Dose Schedule 2003-12-27 00:00:00 Completed [facility] MMR 2003-12-27 00:00:00 Completed [facility] Varicella (varivax)(chicken pox) 2003-12-27 00:00:00 Completed [facility] HIB 4 Dose Schedule 2003-12-27 00:00:00 Completed [facility] MMR 2003-12-27 00:00:00 Completed [facility] Varicella (varivax)(chicken pox) 2003-12-27 00:00:00 Completed [facility] HIB 4 Dose Schedule 2003-12-27 00:00:00 Completed [facility] MMR 2003-12-27 00:00:00 Completed [facility] Varicella (varivax)(chicken pox) 2003-12-27 00:00:00 Completed [facility] HIB 4 Dose Schedule 2003-12-27 00:00:00 Completed [facility] MMR 2003-12-27 00:00:00 Completed [facility] Varicella (varivax)(chicken pox) 2003-12-27 00:00:00 Completed [facility] HIB 4 Dose Schedule 2003-06-28 00:00:00 Completed [facility] Pediarix (dtap/hep B/ipv) 2003-06-28 00:00:00 Completed [facility] HIB 4 Dose Schedule 2003-06-28 00:00:00 Completed [facility] Pediarix (dtap/hep B/ipv) 2003-06-28 00:00:00 Completed [facility] HIB 4 Dose Schedule 2003-06-28 00:00:00 Completed [facility] Pediarix (dtap/hep B/ipv) 2003-06-28 00:00:00 Completed [facility] HIB 4 Dose Schedule 2003-06-28 00:00:00 Completed [facility] Pediarix (dtap/hep B/ipv) 2003-06-28 00:00:00 Completed [facility] HIB 4 Dose Schedule 2003-06-28 00:00:00 Completed [facility] Pediarix (dtap/hep B/ipv) 2003-06-28 00:00:00 Completed [facility] DTAP 2003-03-18 00:00:00 Completed [facility] HIB 4 Dose Schedule 2003-03-18 00:00:00 Completed [facility] Pneumococcal 7 Conjugate, PCV7 (Prevnar7) 2003-03-18 00:00:00 Completed [facility] Polio (IPV/OPV) 2003-03-18 00:00:00 Completed [facility] DTAP 2003-03-18 00:00:00 Completed [facility] HIB 4 Dose Schedule 2003-03-18 00:00:00 Completed [facility] Pneumococcal 7 Conjugate, PCV7 (Prevnar7) 2003-03-18 00:00:00 Completed [facility] Polio (IPV/OPV) 2003-03-18 00:00:00 Completed [facility] DTAP 2003-03-18 00:00:00 Completed [facility] HIB 4 Dose Schedule 2003-03-18 00:00:00 Completed [facility] Pneumococcal 7 Conjugate, PCV7 (Prevnar7) 2003-03-18 00:00:00 Completed [facility] Polio (IPV/OPV) 2003-03-18 00:00:00 Completed [facility] DTAP 2003-03-18 00:00:00 Completed [facility] HIB 4 Dose Schedule 2003-03-18 00:00:00 Completed [facility] Pneumococcal 7 Conjugate, PCV7 (Prevnar7) 2003-03-18 00:00:00 Completed [facility] Polio (IPV/OPV) 2003-03-18 00:00:00 Completed [facility] DTAP 2003-03-18 00:00:00 Completed [facility] HIB 4 Dose Schedule 2003-03-18 00:00:00 Completed [facility] Pneumococcal 7 Conjugate, PCV7 (Prevnar7) 2003-03-18 00:00:00 Completed [facility] Polio (IPV/OPV) 2003-03-18 00:00:00 Completed [facility] DTAP 2002 00:00:00 Completed [facility] HIB 4 Dose Schedule 2002 00:00:00 Completed [facility] Hep B, Adol or Pedi Dosage 2002 00:00:00 Completed [facility] Pneumococcal 7 Conjugate, PCV7 (Prevnar7) 2002 00:00:00 Completed [facility] Polio (IPV/OPV) 2002 00:00:00 Completed [facility] DTAP 2002 00:00:00 Completed [facility] HIB 4 Dose Schedule 2002 00:00:00 Completed [facility] Hep B, Adol or Pedi Dosage 2002 00:00:00 Completed [facility] Pneumococcal 7 Conjugate, PCV7 (Prevnar7) 2002 00:00:00 Completed [facility] Polio (IPV/OPV) 2002 00:00:00 Completed [facility] DTAP 2002 00:00:00 Completed [facility] HIB 4 Dose Schedule 2002 00:00:00 Completed [facility] Hep B, Adol or Pedi Dosage 2002 00:00:00 Completed [facility] Pneumococcal 7 Conjugate, PCV7 (Prevnar7) 2002 00:00:00 Completed [facility] Polio (IPV/OPV) 2002 00:00:00 Completed [facility] DTAP 2002 00:00:00 Completed [facility] HIB 4 Dose Schedule 2002 00:00:00 Completed [facility] Hep B, Adol or Pedi Dosage 2002 00:00:00 Completed [facility] Pneumococcal 7 Conjugate, PCV7 (Prevnar7) 2002 00:00:00 Completed [facility] Polio (IPV/OPV) 2002 00:00:00 Completed [facility] DTAP 2002 00:00:00 Completed [facility] HIB 4 Dose Schedule 2002 00:00:00 Completed [facility] Hep B, Adol or Pedi Dosage 2002 00:00:00 Completed [facility] Pneumococcal 7 Conjugate, PCV7 (Prevnar7) 2002 00:00:00 Completed [facility] Polio (IPV/OPV) 2002 00:00:00 Completed [facility] DTAP 2002 00:00:00 Completed [facility] HIB 4 Dose Schedule 2002 00:00:00 Completed [facility] Hep B, Adol or Pedi Dosage 2002 00:00:00 Completed [facility] Pneumococcal 7 Conjugate, PCV7 (Prevnar7) 2002 00:00:00 Completed [facility] Polio (IPV/OPV) 2002 00:00:00 Completed [facility] DTAP 2002 00:00:00 Completed [facility] HIB 4 Dose Schedule 2002 00:00:00 Completed [facility] Hep B, Adol or Pedi Dosage 2002 00:00:00 Completed [facility] Pneumococcal 7 Conjugate, PCV7 (Prevnar7) 2002 00:00:00 Completed [facility] Polio (IPV/OPV) 2002 00:00:00 Completed [facility] DTAP 2002 00:00:00 Completed [facility] HIB 4 Dose Schedule 2002 00:00:00 Completed [facility] Hep B, Adol or Pedi Dosage 2002 00:00:00 Completed [facility] Pneumococcal 7 Conjugate, PCV7 (Prevnar7) 2002 00:00:00 Completed [facility] Polio (IPV/OPV) 2002 00:00:00 Completed [facility] DTAP 2002 00:00:00 Completed [facility] HIB 4 Dose Schedule 2002 00:00:00 Completed [facility] Hep B, Adol or Pedi Dosage 2002 00:00:00 Completed [facility] Pneumococcal 7 Conjugate, PCV7 (Prevnar7) 2002 00:00:00 Completed [facility] Polio (IPV/OPV) 2002 00:00:00 Completed [facility] DTAP 2002 00:00:00 Completed [facility] HIB 4 Dose Schedule 2002 00:00:00 Completed [facility] Hep B, Adol or Pedi Dosage 2002 00:00:00 Completed [facility] Pneumococcal 7 Conjugate, PCV7 (Prevnar7) 2002 00:00:00 Completed [facility] Polio (IPV/OPV) 2002 00:00:00 Completed [facility] DTAP 2002 00:00:00 Completed [facility] HIB 4 Dose Schedule 2002 00:00:00 Completed [facility] Hep B, Adol or Pedi Dosage 2002 00:00:00 Completed [facility] Pneumococcal 7 Conjugate, PCV7 (Prevnar7) 2002 00:00:00 Completed [facility] Polio (IPV/OPV) 2002 00:00:00 Completed [facility] DTAP 2002 00:00:00 Completed [facility] HIB 4 Dose Schedule 2002 00:00:00 Completed [facility] Hep B, Adol or Pedi Dosage 2002 00:00:00 Completed [facility] Pneumococcal 7 Conjugate, PCV7 (Prevnar7) 2002 00:00:00 Completed [facility] Polio (IPV/OPV) 2002 00:00:00 Completed [facility] DTAP 2002 00:00:00 Completed [facility] HIB 4 Dose Schedule 2002 00:00:00 Completed [facility] Hep B, Adol or Pedi Dosage 2002 00:00:00 Completed [facility] Pneumococcal 7 Conjugate, PCV7 (Prevnar7) 2002 00:00:00 Completed [facility] Polio (IPV/OPV) 2002 00:00:00 Completed [facility] DTAP 2002 00:00:00 Completed [facility] HIB 4 Dose Schedule 2002 00:00:00 Completed [facility] Hep B, Adol or Pedi Dosage 2002 00:00:00 Completed [facility] Pneumococcal 7 Conjugate, PCV7 (Prevnar7) 2002 00:00:00 Completed [facility] Polio (IPV/OPV) 2002 00:00:00 Completed [facility] DTAP 2002 00:00:00 Completed [facility] HIB 4 Dose Schedule 2002 00:00:00 Completed [facility] Hep B, Adol or Pedi Dosage 2002 00:00:00 Completed [facility] Pneumococcal 7 Conjugate, PCV7 (Prevnar7) 2002 00:00:00 Completed [facility] Polio (IPV/OPV) 2002 00:00:00 Completed [facility] DTAP 2002 00:00:00 Completed [facility] HIB 4 Dose Schedule 2002 00:00:00 Completed [facility] Hep B, Adol or Pedi Dosage 2002 00:00:00 Completed [facility] Pneumococcal 7 Conjugate, PCV7 (Prevnar7) 2002 00:00:00 Completed [facility] Polio (IPV/OPV) 2002 00:00:00 Completed [facility] DTAP 2002 00:00:00 Completed [facility] HIB 4 Dose Schedule 2002 00:00:00 Completed [facility] Hep B, Adol or Pedi Dosage 2002 00:00:00 Completed [facility] Pneumococcal 7 Conjugate, PCV7 (Prevnar7) 2002 00:00:00 Completed [facility] Polio (IPV/OPV) 2002 00:00:00 Completed [facility] DTAP 2002 00:00:00 Completed [facility] HIB 4 Dose Schedule 2002 00:00:00 Completed [facility] Hep B, Adol or Pedi Dosage 2002 00:00:00 Completed [facility] Pneumococcal 7 Conjugate, PCV7 (Prevnar7) 2002 00:00:00 Completed [facility] Polio (IPV/OPV) 2002 00:00:00 Completed [facility] DTAP 2002 00:00:00 Completed [facility] HIB 4 Dose Schedule 2002 00:00:00 Completed [facility] Hep B, Adol or Pedi Dosage 2002 00:00:00 Completed [facility] Pneumococcal 7 Conjugate, PCV7 (Prevnar7) 2002 00:00:00 Completed [facility] Polio (IPV/OPV) 2002 00:00:00 Completed [facility] DTAP 2002 00:00:00 Completed [facility] HIB 4 Dose Schedule 2002 00:00:00 Completed [facility] Hep B, Adol or Pedi Dosage 2002 00:00:00 Completed [facility] Pneumococcal 7 Conjugate, PCV7 (Prevnar7) 2002 00:00:00 Completed [facility] Polio (IPV/OPV) 2002 00:00:00 Completed [facility] DTAP 2002 00:00:00 Completed [facility] HIB 4 Dose Schedule 2002 00:00:00 Completed [facility] Hep B, Adol or Pedi Dosage 2002 00:00:00 Completed [facility] Pneumococcal 7 Conjugate, PCV7 (Prevnar7) 2002 00:00:00 Completed [facility] Polio (IPV/OPV) 2002 00:00:00 Completed [facility] DTAP 2002 00:00:00 Completed [facility] HIB 4 Dose Schedule 2002 00:00:00 Completed [facility] Hep B, Adol or Pedi Dosage 2002 00:00:00 Completed [facility] Pneumococcal 7 Conjugate, PCV7 (Prevnar7) 2002 00:00:00 Completed [facility] Polio (IPV/OPV) 2002 00:00:00 Completed [facility] DTAP 2002 00:00:00 Completed [facility] HIB 4 Dose Schedule 2002 00:00:00 Completed [facility] Hep B, Adol or Pedi Dosage 2002 00:00:00 Completed [facility] Pneumococcal 7 Conjugate, PCV7 (Prevnar7) 2002 00:00:00 Completed [facility] Polio (IPV/OPV) 2002 00:00:00 Completed [facility] DTAP 2002 00:00:00 Completed [facility] HIB 4 Dose Schedule 2002 00:00:00 Completed [facility] Hep B, Adol or Pedi Dosage 2002 00:00:00 Completed [facility] Pneumococcal 7 Conjugate, PCV7 (Prevnar7) 2002 00:00:00 Completed [facility] Polio (IPV/OPV) 2002 00:00:00 Completed [facility] DTAP 2002 00:00:00 Completed [facility] HIB 4 Dose Schedule 2002 00:00:00 Completed [facility] Hep B, Adol or Pedi Dosage 2002 00:00:00 Completed [facility] Pneumococcal 7 Conjugate, PCV7 (Prevnar7) 2002 00:00:00 Completed [facility] Polio (IPV/OPV) 2002 00:00:00 Completed [facility] DTAP 2002 00:00:00 Completed [facility] HIB 4 Dose Schedule 2002 00:00:00 Completed [facility] Hep B, Adol or Pedi Dosage 2002 00:00:00 Completed [facility] Pneumococcal 7 Conjugate, PCV7 (Prevnar7) 2002 00:00:00 Completed [facility] Polio (IPV/OPV) 2002 00:00:00 Completed [facility] DTAP 2002 00:00:00 Completed [facility] HIB 4 Dose Schedule 2002 00:00:00 Completed [facility] Hep B, Adol or Pedi Dosage 2002 00:00:00 Completed [facility] Pneumococcal 7 Conjugate, PCV7 (Prevnar7) 2002 00:00:00 Completed [facility] Polio (IPV/OPV) 2002 00:00:00 Completed [facility] DTAP 2002 00:00:00 Completed [facility] HIB 4 Dose Schedule 2002 00:00:00 Completed [facility] Hep B, Adol or Pedi Dosage 2002 00:00:00 Completed [facility] Pneumococcal 7 Conjugate, PCV7 (Prevnar7) 2002 00:00:00 Completed [facility] Polio (IPV/OPV) 2002 00:00:00 Completed [facility] DTAP 2002 00:00:00 Completed [facility] HIB 4 Dose Schedule 2002 00:00:00 Completed [facility] Hep B, Adol or Pedi Dosage 2002 00:00:00 Completed [facility] Pneumococcal 7 Conjugate, PCV7 (Prevnar7) 2002 00:00:00 Completed [facility] Polio (IPV/OPV) 2002 00:00:00 Completed [facility] DTAP 2002 00:00:00 Completed [facility] HIB 4 Dose Schedule 2002 00:00:00 Completed [facility] Hep B, Adol or Pedi Dosage 2002 00:00:00 Completed [facility] Pneumococcal 7 Conjugate, PCV7 (Prevnar7) 2002 00:00:00 Completed [facility] Polio (IPV/OPV) 2002 00:00:00 Completed [facility] DTAP 2002 00:00:00 Completed [facility] HIB 4 Dose Schedule 2002 00:00:00 Completed [facility] Hep B, Adol or Pedi Dosage 2002 00:00:00 Completed [facility] Pneumococcal 7 Conjugate, PCV7 (Prevnar7) 2002 00:00:00 Completed [facility] Polio (IPV/OPV) 2002 00:00:00 Completed [facility] DTAP 2002 00:00:00 Completed [facility] HIB 4 Dose Schedule 2002 00:00:00 Completed [facility] Hep B, Adol or Pedi Dosage 2002 00:00:00 Completed [facility] Pneumococcal 7 Conjugate, PCV7 (Prevnar7) 2002 00:00:00 Completed [facility] Polio (IPV/OPV) 2002 00:00:00 Completed [facility] DTAP 2002 00:00:00 Completed [facility] HIB 4 Dose Schedule 2002 00:00:00 Completed [facility] Hep B, Adol or Pedi Dosage 2002 00:00:00 Completed [facility] Pneumococcal 7 Conjugate, PCV7 (Prevnar7) 2002 00:00:00 Completed [facility] Polio (IPV/OPV) 2002 00:00:00 Completed [facility] DTAP 2002 00:00:00 Completed [facility] HIB 4 Dose Schedule 2002 00:00:00 Completed [facility] Hep B, Adol or Pedi Dosage 2002 00:00:00 Completed [facility] Pneumococcal 7 Conjugate, PCV7 (Prevnar7) 2002 00:00:00 Completed [facility] Polio (IPV/OPV) 2002 00:00:00 Completed [facility] DTAP 2002 00:00:00 Completed [facility] HIB 4 Dose Schedule 2002 00:00:00 Completed [facility] Hep B, Adol or Pedi Dosage 2002 00:00:00 Completed [facility] Pneumococcal 7 Conjugate, PCV7 (Prevnar7) 2002 00:00:00 Completed [facility] Polio (IPV/OPV) 2002 00:00:00 Completed [facility] DTAP 2002 00:00:00 Completed [facility] HIB 4 Dose Schedule 2002 00:00:00 Completed [facility] Hep B, Adol or Pedi Dosage 2002 00:00:00 Completed [facility] Pneumococcal 7 Conjugate, PCV7 (Prevnar7) 2002 00:00:00 Completed [facility] Polio (IPV/OPV) 2002 00:00:00 Completed [facility] DTAP 2002 00:00:00 Completed [facility] HIB 4 Dose Schedule 2002 00:00:00 Completed [facility] Hep B, Adol or Pedi Dosage 2002 00:00:00 Completed [facility] Pneumococcal 7 Conjugate, PCV7 (Prevnar7) 2002 00:00:00 Completed [facility] Polio (IPV/OPV) 2002 00:00:00 Completed [facility] DTAP 2002 00:00:00 Completed [facility] HIB 4 Dose Schedule 2002 00:00:00 Completed [facility] Hep B, Adol or Pedi Dosage 2002 00:00:00 Completed [facility] Pneumococcal 7 Conjugate, PCV7 (Prevnar7) 2002 00:00:00 Completed [facility] Polio (IPV/OPV) 2002 00:00:00 Completed [facility] DTAP 2002 00:00:00 Completed [facility] HIB 4 Dose Schedule 2002 00:00:00 Completed [facility] Hep B, Adol or Pedi Dosage 2002 00:00:00 Completed [facility] Pneumococcal 7 Conjugate, PCV7 (Prevnar7) 2002 00:00:00 Completed [facility] Polio (IPV/OPV) 2002 00:00:00 Completed [facility] DTAP 2002 00:00:00 Completed [facility] HIB 4 Dose Schedule 2002 00:00:00 Completed [facility] Hep B, Adol or Pedi Dosage 2002 00:00:00 Completed [facility] Pneumococcal 7 Conjugate, PCV7 (Prevnar7) 2002 00:00:00 Completed [facility] Polio (IPV/OPV) 2002 00:00:00 Completed [facility] DTAP 2002 00:00:00 Completed [facility] HIB 4 Dose Schedule 2002 00:00:00 Completed [facility] Hep B, Adol or Pedi Dosage 2002 00:00:00 Completed [facility] Pneumococcal 7 Conjugate, PCV7 (Prevnar7) 2002 00:00:00 Completed [facility] Polio (IPV/OPV) 2002 00:00:00 Completed [facility] DTAP 2002 00:00:00 Completed [facility] HIB 4 Dose Schedule 2002 00:00:00 Completed [facility] Hep B, Adol or Pedi Dosage 2002 00:00:00 Completed [facility] Pneumococcal 7 Conjugate, PCV7 (Prevnar7) 2002 00:00:00 Completed [facility] Polio (IPV/OPV) 2002 00:00:00 Completed [facility] DTAP 2002 00:00:00 Completed [facility] HIB 4 Dose Schedule 2002 00:00:00 Completed [facility] Hep B, Adol or Pedi Dosage 2002 00:00:00 Completed [facility] Pneumococcal 7 Conjugate, PCV7 (Prevnar7) 2002 00:00:00 Completed [facility] Polio (IPV/OPV) 2002 00:00:00 Completed [facility] DTAP 2002 00:00:00 Completed [facility] HIB 4 Dose Schedule 2002 00:00:00 Completed [facility] Hep B, Adol or Pedi Dosage 2002 00:00:00 Completed [facility] Pneumococcal 7 Conjugate, PCV7 (Prevnar7) 2002 00:00:00 Completed [facility] Polio (IPV/OPV) 2002 00:00:00 Completed [facility] DTAP 2002 00:00:00 Completed [facility] HIB 4 Dose Schedule 2002 00:00:00 Completed [facility] Hep B, Adol or Pedi Dosage 2002 00:00:00 Completed [facility] Pneumococcal 7 Conjugate, PCV7 (Prevnar7) 2002 00:00:00 Completed [facility] Polio (IPV/OPV) 2002 00:00:00 Completed [facility] DTAP 2002 00:00:00 Completed [facility] HIB 4 Dose Schedule 2002 00:00:00 Completed [facility] Hep B, Adol or Pedi Dosage 2002 00:00:00 Completed [facility] Pneumococcal 7 Conjugate, PCV7 (Prevnar7) 2002 00:00:00 Completed [facility] Polio (IPV/OPV) 2002 00:00:00 Completed [facility] DTAP 2002 00:00:00 Completed [facility] HIB 4 Dose Schedule 2002 00:00:00 Completed [facility] Hep B, Adol or Pedi Dosage 2002 00:00:00 Completed [facility] Pneumococcal 7 Conjugate, PCV7 (Prevnar7) 2002 00:00:00 Completed [facility] Polio (IPV/OPV) 2002 00:00:00 Completed [facility] DTAP 2002 00:00:00 Completed [facility] HIB 4 Dose Schedule 2002 00:00:00 Completed [facility] Hep B, Adol or Pedi Dosage 2002 00:00:00 Completed [facility] Pneumococcal 7 Conjugate, PCV7 (Prevnar7) 2002 00:00:00 Completed [facility] Polio (IPV/OPV) 2002 00:00:00 Completed [facility] DTAP 2002 00:00:00 Completed [facility] HIB 4 Dose Schedule 2002 00:00:00 Completed [facility] Hep B, Adol or Pedi Dosage 2002 00:00:00 Completed [facility] Pneumococcal 7 Conjugate, PCV7 (Prevnar7) 2002 00:00:00 Completed [facility] Polio (IPV/OPV) 2002 00:00:00 Completed [facility] DTAP 2002 00:00:00 Completed [facility] HIB 4 Dose Schedule 2002 00:00:00 Completed [facility] Hep B, Adol or Pedi Dosage 2002 00:00:00 Completed [facility] Pneumococcal 7 Conjugate, PCV7 (Prevnar7) 2002 00:00:00 Completed [facility] Polio (IPV/OPV) 2002 00:00:00 Completed [facility] DTAP 2002 00:00:00 Completed [facility] HIB 4 Dose Schedule 2002 00:00:00 Completed [facility] Hep B, Adol or Pedi Dosage 2002 00:00:00 Completed [facility] Pneumococcal 7 Conjugate, PCV7 (Prevnar7) 2002 00:00:00 Completed [facility] Polio (IPV/OPV) 2002 00:00:00 Completed [facility] DTAP 2002 00:00:00 Completed [facility] HIB 4 Dose Schedule 2002 00:00:00 Completed [facility] Hep B, Adol or Pedi Dosage 2002 00:00:00 Completed [facility] Pneumococcal 7 Conjugate, PCV7 (Prevnar7) 2002 00:00:00 Completed [facility] Polio (IPV/OPV) 2002 00:00:00 Completed [facility] DTAP 2002 00:00:00 Completed [facility] HIB 4 Dose Schedule 2002 00:00:00 Completed [facility] Hep B, Adol or Pedi Dosage 2002 00:00:00 Completed [facility] Pneumococcal 7 Conjugate, PCV7 (Prevnar7) 2002 00:00:00 Completed [facility] Polio (IPV/OPV) 2002 00:00:00 Completed [facility] DTAP 2002 00:00:00 Completed [facility] HIB 4 Dose Schedule 2002 00:00:00 Completed [facility] Hep B, Adol or Pedi Dosage 2002 00:00:00 Completed [facility] Pneumococcal 7 Conjugate, PCV7 (Prevnar7) 2002 00:00:00 Completed [facility] Polio (IPV/OPV) 2002 00:00:00 Completed [facility] DTAP 2002 00:00:00 Completed [facility] HIB 4 Dose Schedule 2002 00:00:00 Completed [facility] Hep B, Adol or Pedi Dosage 2002 00:00:00 Completed [facility] Pneumococcal 7 Conjugate, PCV7 (Prevnar7) 2002 00:00:00 Completed [facility] Polio (IPV/OPV) 2002 00:00:00 Completed [facility] DTAP 2002 00:00:00 Completed [facility] HIB 4 Dose Schedule 2002 00:00:00 Completed [facility] Hep B, Adol or Pedi Dosage 2002 00:00:00 Completed [facility] Pneumococcal 7 Conjugate, PCV7 (Prevnar7) 2002 00:00:00 Completed [facility] Polio (IPV/OPV) 2002 00:00:00 Completed [facility] DTAP 2002 00:00:00 Completed [facility] HIB 4 Dose Schedule 2002 00:00:00 Completed [facility] Hep B, Adol or Pedi Dosage 2002 00:00:00 Completed [facility] Pneumococcal 7 Conjugate, PCV7 (Prevnar7) 2002 00:00:00 Completed [facility] Polio (IPV/OPV) 2002 00:00:00 Completed [facility] DTAP 2002 00:00:00 Completed [facility] HIB 4 Dose Schedule 2002 00:00:00 Completed [facility] Hep B, Adol or Pedi Dosage 2002 00:00:00 Completed [facility] Pneumococcal 7 Conjugate, PCV7 (Prevnar7) 2002 00:00:00 Completed [facility] Polio (IPV/OPV) 2002 00:00:00 Completed [facility] DTAP 2002 00:00:00 Completed [facility] HIB 4 Dose Schedule 2002 00:00:00 Completed [facility] Hep B, Adol or Pedi Dosage 2002 00:00:00 Completed [facility] Pneumococcal 7 Conjugate, PCV7 (Prevnar7) 2002 00:00:00 Completed [facility] Polio (IPV/OPV) 2002 00:00:00 Completed [facility] Hep B, Adol or Pedi Dosage 2002 00:00:00 Completed [facility] Hep B, Adol or Pedi Dosage 2002 00:00:00 Completed [facility] Hep B, Adol or Pedi Dosage 2002 00:00:00 Completed [facility] Hep B, Adol or Pedi Dosage 2002 00:00:00 Completed [facility] Hep B, Adol or Pedi Dosage 2002 00:00:00 Completed [facility] DTAP Unknown Completed [facility] HIB 4 Dose Schedule Unknown Completed [facility] Hep B, Adol or Pedi Dosage Unknown Completed [facility] Pneumococcal 7 Conjugate, PCV7 (Prevnar7) Unknown Completed [facility] Polio (IPV/OPV) Unknown Completed [facility] HEPATITIS A Unknown Completed [facility] MMR Unknown Completed [facility] Varicella (varivax)(chicken pox) Unknown Completed [facility] TDAP Unknown Completed [facility] DTAP Unknown Completed [facility] HIB 4 Dose Schedule Unknown Completed [facility] Hep B, Adol or Pedi Dosage Unknown Completed [facility] Pneumococcal 7 Conjugate, PCV7 (Prevnar7) Unknown Completed [facility] Polio (IPV/OPV) Unknown Completed [facility] HEPATITIS A Unknown Completed [facility] MMR Unknown Completed [facility] Varicella (varivax)(chicken pox) Unknown Completed [facility] TDAP Unknown Completed [facility] DTAP Unknown Completed [facility] HIB 4 Dose Schedule Unknown Completed [facility] Hep B, Adol or Pedi Dosage Unknown Completed [facility] Pneumococcal 7 Conjugate, PCV7 (Prevnar7) Unknown Completed [facility] Polio (IPV/OPV) Unknown Completed [facility] HEPATITIS A Unknown Completed [facility] MMR Unknown Completed [facility] Varicella (varivax)(chicken pox) Unknown Completed [facility] DTAP Unknown Completed [facility] HIB 4 Dose Schedule Unknown Completed [facility] Hep B, Adol or Pedi Dosage Unknown Completed [facility] Pneumococcal 7 Conjugate, PCV7 (Prevnar7) Unknown Completed [facility] Polio (IPV/OPV) Unknown Completed [facility] HEPATITIS A Unknown Completed [facility] MMR Unknown Completed [facility] Varicella (varivax)(chicken pox) Unknown Completed [facility] TDAP Unknown Completed [facility] DTAP Unknown Completed [facility] HIB 4 Dose Schedule Unknown Completed [facility] Hep B, Adol or Pedi Dosage Unknown Completed [facility] Pneumococcal 7 Conjugate, PCV7 (Prevnar7) Unknown Completed [facility] Polio (IPV/OPV) Unknown [facility] MMR Unknown Completed [facility] Varicella (varivax)(chicken pox) Unknown Completed [facility] TDAP Unknown Completed [facility] DTAP Unknown Completed [facility] HIB 4 Dose Schedule Unknown Completed [facility] Hep B, Adol or Pedi Dosage Unknown Completed [facility] Pneumococcal 7 Conjugate, PCV7 (Prevnar7) Unknown Completed [facility] Polio (IPV/OPV) Unknown Completed [facility] HEPATITIS A Unknown [facility] Completed [facility] Varicella (varivax)(chicken pox) Unknown Completed [facility] TDAP Unknown Completed [facility] DTAP Unknown Completed [facility] HIB 4 Dose Schedule Unknown Completed [facility] Hep B, Adol or Pedi Dosage Unknown Completed [facility] Pneumococcal 7 Conjugate, PCV7 (Prevnar7) Unknown Completed [facility] Polio (IPV/OPV) Unknown Completed [facility] HEPATITIS A Unknown Completed [facility] MMR Unknown Completed [facility] Varicella (varivax)(chicken pox) Unknown Completed [facility] TDAP Unknown Completed [facility] DTAP Unknown Completed [facility] HIB 4 Dose Schedule Unknown Completed [facility] Hep B, Adol or Pedi Dosage Unknown Completed [facility] Pneumococcal 7 Conjugate, PCV7 (Prevnar7) Unknown Completed [facility] Polio (IPV/OPV) Unknown Completed [facility] HEPATITIS A Unknown Completed [facility] MMR Unknown Completed [facility] Varicella (varivax)(chicken pox) Unknown Completed [facility] TDAP Unknown Completed [facility] DTAP Unknown Completed [facility] HIB 4 Dose Schedule Unknown Completed [facility] Hep B, Adol or Pedi Dosage Unknown Completed [facility] Pneumococcal 7 Conjugate, PCV7 (Prevnar7) Unknown Completed [facility] Polio (IPV/OPV) Unknown Completed [facility] HEPATITIS A Unknown Completed [facility] MMR Unknown Completed [facility] Varicella (varivax)(chicken pox) Unknown Completed [facility] TDAP Unknown Completed [facility] DTAP Unknown Completed [facility] HIB 4 Dose Schedule Unknown Completed [facility] Hep B, Adol or Pedi Dosage Unknown Completed [facility] Pneumococcal 7 Conjugate, PCV7 (Prevnar7) Unknown Completed [facility] Polio (IPV/OPV) Unknown Completed [facility] HEPATITIS A Unknown Completed [facility] MMR Unknown Completed [facility] Varicella (varivax)(chicken pox) Unknown Completed [facility] TDAP Unknown Completed [facility] DTAP Unknown Completed [facility] HIB 4 Dose Schedule Unknown Completed [facility] Hep B, Adol or Pedi Dosage Unknown Completed [facility] Pneumococcal 7 Conjugate, PCV7 (Prevnar7) Unknown Completed [facility] Polio (IPV/OPV) Unknown Completed [facility] HEPATITIS A Unknown Completed [facility] MMR Unknown Completed [facility] Varicella (varivax)(chicken pox) Unknown Completed [facility] TDAP Unknown Completed [facility] Vital Signs Vital Name Observation Time Observation Value Comments S ource Systolic blood pressure 2023-12-01 07:00:00 136 mm[Hg] [facility] Diastolic blood pressure 2023-12-01 07:00:00 95 mm[Hg] [facility] Heart rate 2023-12-01 07:00:00 90 /min [facility] Body temperature 2023-12-01 07:00:00 37.11 Margarita [facility] Respiratory rate 2023-12-01 07:00:00 17 /min [facility] Oxygen saturation in Arterial blood by Pulse oximetry 2023-12-01 07:00:00 100 /min [facility] Body height 2023-12-01 05:50:00 165.1 cm [facility] Body weight 2023-12-01 05:50:00 79.379 kg [facility] BMI 2023-12-01 05:50:00 29.12 kg/m2 [facility] Systolic blood pressure 2023-10-24 16:05:00 126 mm[Hg] [facility] Diastolic blood pressure 2023-10-24 16:05:00 82 mm[Hg] [facility] Heart rate 2023-10-24 16:05:00 96 /min [facility] Body temperature 2023-10-24 16:05:00 37.22 Margarita [facility] Respiratory rate 2023-10-24 16:05:00 17 /min [facility] Body weight 2023-10-24 16:05:00 85.73 kg [facility] BMI 2023-10-24 16:05:00 31.45 kg/m2 [facility] Oxygen saturation in Arterial blood by Pulse oximetry 2023-10-24 16:05:00 96 /min [facility] Systolic blood pressure 2023-10-16 11:04:22 141 mm[Hg] [facility] Diastolic blood pressure 2023-10-16 11:04:22 83 mm[Hg] [facility] Heart rate 2023-10-16 11:04:22 93 /min [facility] Body temperature 2023-10-16 11:04:22 36.89 Margarita [facility] Respiratory rate 2023-10-16 11:04:22 20 /min [facility] Body height 2023-10-16 11:02:00 165.1 cm [facility] Body weight 2023-10-16 11:02:00 77.111 kg [facility] BMI 2023-10-16 11:02:00 28.29 kg/m2 [facility] Oxygen saturation in Arterial blood by Pulse oximetry 2023-10-16 11:02:00 100 /min [facility] Systolic blood pressure 2023-08-02 04:48:38 135 mm[Hg] [facility] Diastolic blood pressure 2023-08-02 04:48:38 87 mm[Hg] [facility] Heart rate 2023-08-02 04:48:38 72 /min [facility] Body temperature 2023-08-02 04:48:38 36.39 Margarita [facility] Respiratory rate 2023-08-02 04:48:38 20 /min [facility] Oxygen saturation in Arterial blood by Pulse oximetry 2023-08-02 04:48:38 100 /min [facility] Body height 2023-08-02 02:50:02 165.1 cm [facility] Body weight 2023-08-02 02:50:02 77.111 kg [facility] BMI 2023-08-02 02:50:02 28.29 kg/m2 [facility] Systolic blood pressure 2023-07-31 04:27:00 135 mm[Hg] [facility] Diastolic blood pressure 2023-07-31 04:27:00 92 mm[Hg] [facility] Heart rate 2023-07-31 04:27:00 93 /min [facility] Body temperature 2023-07-31 04:27:00 37.22 Margarita [facility] Respiratory rate 2023-07-31 04:27:00 16 /min [facility] Body height 2023-07-31 04:27:00 165.1 cm [facility] Body weight 2023-07-31 04:27:00 77.111 kg [facility] BMI 2023-07-31 04:27:00 28.29 kg/m2 [facility] Oxygen saturation in Arterial blood by Pulse oximetry 2023-07-31 04:27:00 100 /min [facility] Systolic blood pressure 2023-07-29 22:45:00 132 mm[Hg] [facility] Diastolic blood pressure 2023-07-29 22:45:00 89 mm[Hg] [facility] Heart rate 2023-07-29 22:45:00 98 /min [facility] Body temperature 2023-07-29 22:45:00 37 Margarita [facility] Respiratory rate 2023-07-29 22:45:00 16 /min [facility] Body height 2023-07-29 22:45:00 165.1 cm [facility] Body weight 2023-07-29 22:45:00 88.27 kg [facility] BMI 2023-07-29 22:45:00 32.38 kg/m2 [facility] Oxygen saturation in Arterial blood by Pulse oximetry 2023-07-29 22:45:00 99 /min [facility] Systolic blood pressure 2023-04-04 23:25:00 123 mm[Hg] [facility] Diastolic blood pressure 2023-04-04 23:25:00 85 mm[Hg] [facility] Heart rate 2023-04-04 23:25:00 104 /min [facility] Body temperature 2023-04-04 23:25:00 37.33 Margarita [facility] Respiratory rate 2023-04-04 23:25:00 17 /min [facility] Body height 2023-04-04 23:25:00 165.1 cm [facility] Body weight 2023-04-04 23:25:00 70.308 kg [facility] BMI 2023-04-04 23:25:00 25.79 kg/m2 [facility] Oxygen saturation in Arterial blood by Pulse oximetry 2023-04-04 23:25:00 99 /min [facility] Systolic blood pressure 2022-11-28 21:19:00 141 mm[Hg] [facility] Diastolic blood pressure 2022-11-28 21:19:00 84 mm[Hg] [facility] Heart rate 2022-11-28 21:19:00 99 /[facility] Body temperature 2022-11-28 21:19:00 37.11 Margarita [facility] Respiratory rate 2022-11-28 21:19:00 18 /min [facility] Body weight 2022-11-28 21:19:00 74.39 kg [facility] Oxygen saturation in Arterial blood by Pulse oximetry 2022-11-28 21:19:00 100 /min [facility] Systolic blood pressure 2022-11-13 12:13:00 140 mm[Hg] [facility] Diastolic blood pressure 2022-11-13 12:13:00 87 mm[Hg] [facility] Heart rate 2022-11-13 12:13:00 100 /min [facility] Body temperature 2022-11-13 12:13:00 36.89 Margarita [facility] Respiratory rate 2022-11-13 12:13:00 16 /min [facility] Body height 2022-11-13 12:13:00 165.1 cm [facility] Body weight 2022-11-13 12:13:00 63.504 kg [facility] BMI 2022-11-13 12:13:00 23.30 kg/m2 [facility] Oxygen saturation in Arterial blood by Pulse oximetry 2022-11-13 12:13:00 100 /min [facility] Systolic blood pressure 2022-09-27 21:51:00 117 mm[Hg] [facility] Diastolic blood pressure 2022-09-27 21:51:00 85 mm[Hg] [facility] Heart rate 2022-09-27 21:51:00 85 /min [facility] Body temperature 2022-09-27 21:51:00 36.89 Margarita [facility] Respiratory rate 2022-09-27 21:51:00 16 /min [facility] Body height 2022-09-27 21:51:00 165.1 cm [facility] Body weight 2022-09-27 21:51:00 63.504 kg [facility] BMI 2022-09-27 21:51:00 23.30 kg/m2 [facility] Oxygen saturation in Arterial blood by Pulse oximetry 2022-09-27 21:51:00 99 /min [facility] Systolic blood pressure 2022-05-07 21:44:00 115 mm[Hg] [facility] Diastolic blood pressure 2022-05-07 21:44:00 80 mm[Hg] [facility] Heart rate 2022-05-07 21:44:00 79 /min [facility] Body temperature 2022-05-07 21:44:00 36.67 Margarita [facility] Respiratory rate 2022-05-07 21:44:00 18 /min [facility] Body height 2022-05-07 21:44:00 165.1 cm [facility] Body weight 2022-05-07 21:44:00 67.223 kg [facility] BMI 2022-05-07 21:44:00 24.66 kg/m2 [facility] Systolic blood pressure 2022-04-24 17:36:00 129 mm[Hg] [facility] Diastolic blood pressure 2022-04-24 17:36:00 88 mm[Hg] [facility] Heart rate 2022-04-24 17:36:00 72 /min [facility] Body temperature 2022-04-24 17:36:00 36.72 Margarita [facility] Respiratory rate 2022-04-24 17:36:00 16 /min [facility] Body height 2022-04-24 17:36:00 165.1 cm [facility] Body weight 2022-04-24 17:36:00 66.9 kg [facility] BMI 2022-04-24 17:36:00 24.54 kg/m2 [facility] Systolic blood pressure 2022-04-03 19:16:00 103 mm[Hg] [facility] Diastolic blood pressure 2022-04-03 19:16:00 63 mm[Hg] [facility] Heart rate 2022-04-03 19:16:00 75 /min [facility] Body temperature 2022-04-03 19:16:00 36.78 Margarita [facility] Body height 2022-04-03 19:16:00 165.1 cm [facility] Body weight 2022-04-03 19:16:00 65.318 kg [facility] BMI 2022-04-03 19:16:00 23.96 kg/m2 [facility] Systolic blood pressure 2022-03-19 18:04:00 123 mm[Hg] [facility] Diastolic blood pressure 2022-03-19 18:04:00 76 mm[Hg] [facility] Heart rate 2022-03-19 18:04:00 118 /min [facility] Body temperature 2022-03-19 18:04:00 39.33 Margarita [facility] Respiratory rate 2022-03-19 18:04:00 18 /min [facility] Body height 2022-03-19 18:04:00 165.1 cm [facility] Oxygen saturation in Arterial blood by Pulse oximetry 2022-03-19 18:04:00 98 /min [facility] Systolic blood pressure 2022-03-06 14:12:00 123 mm[Hg] [facility] Diastolic blood pressure 2022-03-06 14:12:00 88 mm[Hg] [facility] Heart rate 2022-03-06 14:12:00 70 /min [facility] Body temperature 2022-03-06 14:12:00 36.5 Margarita [facility] Respiratory rate 2022-03-06 14:12:00 16 /min [facility] Oxygen saturation in Arterial blood by Pulse oximetry 2022-03-06 14:12:00 100 /min [facility] Body height 2022-03-03 16:33:00 165.1 cm [facility] Body weight 2022-03-03 16:33:00 73.483 kg [facility] BMI 2022-03-03 16:33:00 26.96 kg/m2 [facility] Systolic blood pressure 2022-02-28 17:26:00 122 mm[Hg] [facility] Diastolic blood pressure 2022-02-28 17:26:00 89 mm[Hg] [facility] Heart rate 2022-02-28 17:26:00 80 /min [facility] Body temperature 2022-02-28 17:26:00 36.61 Margarita [facility] Respiratory rate 2022-02-28 17:26:00 18 /min [facility] Body height 2022-02-28 17:26:00 165.1 cm [facility] Body weight 2022-02-28 17:26:00 73.211 kg [facility] BMI 2022-02-28 17:26:00 26.86 kg/m2 [facility] Systolic blood pressure 2022-02-25 19:37:00 122 mm[Hg] [facility] Diastolic blood pressure 2022-02-25 19:37:00 80 mm[Hg] [facility] Heart rate 2022-02-25 19:37:00 94 /[facility] 2022-02-25 19:37:00 36.72 Margarita [facility] Respiratory rate 2022-02-25 19:37:00 18 /min [facility] Body height 2022-02-25 19:37:00 [facility] 2022-02-25 19:37:00 71[facility]94 [facility] 2022-02-25 19:37:00 26.39 kg[facility] pressure 2022-02-21 19:35:00 111 mm[Hg] [facility] Diastolic blood pressure 2022-02-21 19:35:00 78 mm[Hg] [facility] Body temperature 2022-02-21 19:35:00 36.5 Margarita [facility] Respiratory rate 2022-02-21 19:35:00 18 /min [facility] Body height 2022-02-21 19:35:00 165.1 cm [facility] 2022-02-21 19:35:00 72.576 kg Univ [facility] BMI 2022-02-21 19:35:00 26.63 kg/m2 [facility] Systolic blood pressure 2022-02-20 21:42:00 128 mm[Hg] [facility] Diastolic blood pressure 2022-02-20 21:42:00 85 mm[Hg] [facility] Heart rate 2022-02-20 21:42:00 99 /min Unive [facility] Body temperature 2022-02-20 21:42:00 36.94 Margarita [facility] Respiratory rate 2022-02-20 21:42:00 18 /min [facility] Body height 2022-02-20 21:42:00 165.1 cm [facility] weight 2022-02-20 21:42:00 73.029 kg [facility] BMI 2022-02-20 21:42:00 26.79 kg/m2 [facility] Systolic blood pressure 2022-02-18 17:52:00 109 mm[Hg] [facility] Diastolic blood pressure 2022-02-18 17:52:00 59 mm[Hg] [facility] Heart rate 2022-02-18 17:52:00 70 /min [facility] Body temperature 2022-02-18 17:52:00 36.39 Margarita [facility] Respiratory rate 2022-02-18 17:52:00 18 /min [facility] Oxygen saturation in Arterial blood by Pulse oximetry 2022-02-18 17:52:00 97 /min [facility] Body height 2022-02-15 23:53:00 165.1 cm [facility] Body weight 2022-02-15 23:53:00 72.576 kg [facility] BMI 2022-02-15 23:53:00 26.63 kg/m2 [facility] Systolic blood pressure 2022-02-13 15:15:00 117 mm[Hg] [facility] Diastolic blood pressure 2022-02-13 15:15:00 77 mm[Hg] [facility] Heart rate 2022-02-13 15:15:00 88 /min [facility] Body temperature 2022-02-13 15:15:00 36.61 Margarita [facility] Respiratory rate 2022-02-13 15:15:00 18 /min [facility] Body height 2022-02-13 15:15:00 165.1 cm [facility] Body weight 2022-02-13 15:15:00 73.029 kg [facility] BMI 2022-02-13 15:15:00 26.79 kg/m2 [facility] Systolic blood pressure 2022-02-06 19:16:00 116 mm[Hg] [facility] Diastolic blood pressure 2022-02-06 19:16:00 79 mm[Hg] [facility] Heart rate 2022-02-06 19:16:00 69 /min [facility] 2022-02-06 19:16:00 36.44 Margarita [facility] Respiratory rate 2022-02-06 19:16:00 17 /min [facility] Body height 2022-02-06 19:16:00 165.1 cm [facility] Body weight 2022-02-06 19:16:00 70.852 kg [facility] BMI 2022-02-06 19:16:00 25.99 kg/m2 [facility] Systolic blood pressure 2022-01-21 22:25:00 118 mm[Hg] [facility] Diastolic blood pressure 2022-01-21 22:25:00 80 mm[Hg] [facility] Heart rate 2022-01-21 22:25:00 87 /min [facility] Body temperature 2022-01-21 22:25:00 36.61 Margarita [facility] Respiratory rate 2022-01-21 22:25:00 17 /min [facility] Body height 2022-01-21 22:25:00 165.1 cm [facility] Body weight 2022-01-21 22:25:00 70.308 kg [facility] BMI 2022-01-21 22:25:00 25.79 kg/m2 [facility] Systolic blood pressure 2022-01-03 20:58:00 125 mm[Hg] [facility] Diastolic blood pressure 2022-01-03 20:58:00 84 mm[Hg] [facility] Heart rate 2022-01-03 20:58:00 105 /min [facility] Body temperature 2022-01-03 20:58:00 36.67 Margarita [facility] Body height 2022-01-03 20:58:00 165.1 cm [facility] Body weight 2022-01-03 20:58:00 69.582 kg [facility] BMI 2022-01-03 20:58:00 25.53 kg/m2 [facility] Systolic blood pressure 2021-12-06 18:15:00 117 mm[Hg] [facility] Diastolic blood pressure 2021-12-06 18:15:00 76 mm[Hg] [facility] Heart rate 2021-12-06 18:15:00 76 /min [facility] Body temperature 2021-12-06 18:15:00 36.5 Margarita [facility] Body height 2021-12-06 18:15:00 165.1 cm [facility] Body weight 2021-12-06 18:15:00 65.681 kg [facility] BMI 2021-12-06 18:15:00 24.10 kg/m2 [facility] Systolic blood pressure 2021-11-09 19:57:00 146 mm[Hg] [facility] Diastolic blood pressure 2021-11-09 19:57:00 79 mm[Hg] [facility] Heart rate 2021-11-09 19:57:00 90 /min [facility] Body temperature 2021-11-09 19:57:00 37.56 Margarita [facility] Respiratory rate 2021-11-09 19:57:00 18 /min [facility] Body height 2021-11-09 19:57:00 165.1 cm [facility] Body weight 2021-11-09 19:57:00 62.596 kg [facility] BMI 2021-11-09 19:57:00 22.96 kg/m2 [facility] Oxygen saturation in Arterial blood by Pulse oximetry 2021-11-09 19:57:00 100 /min [facility] Systolic blood pressure 2021-11-09 19:33:00 124 mm[Hg] [facility] Diastolic blood pressure 2021-11-09 19:33:00 80 mm[Hg] [facility] Heart rate 2021-11-09 19:33:00 63 /min [facility] Body temperature 2021-11-09 19:33:00 36.72 Margarita [facility] Respiratory rate 2021-11-09 19:33:00 18 /min [facility] Body height 2021-11-09 19:33:00 165.1 cm [facility] Body weight 2021-11-09 19:33:00 61.689 kg [facility] BMI 2021-11-09 19:33:00 22.63 kg/m2 [facility] Oxygen saturation in Arterial blood by Pulse oximetry 2021-11-09 19:33:00 97 /min [facility] Systolic blood pressure 2021-11-08 15:20:00 139 mm[Hg] [facility] Diastolic blood pressure 2021-11-08 15:20:00 89 mm[Hg] [facility] Heart rate 2021-11-08 15:20:00 92 /min [facility] Body temperature 2021-11-08 15:20:00 36.94 Margarita [facility] Respiratory rate 2021-11-08 15:20:00 18 /min [facility] Body height 2021-11-08 15:20:00 165.1 cm [facility] Body weight 2021-11-08 15:20:00 61.689 kg [facility] BMI 2021-11-08 15:20:00 22.63 kg/m2 [facility] Procedures Procedure Date / Time Performed Performing Clinician Source URINALYSIS 2023-12-01 07:06:00 Genna Ang [facility] XR CHEST 2 VW 2023-12-01 06:43:28 Genna Ang [facility] POCT MOLECULAR STREP 2023-10-24 16:53:00 Jimena Lara [facility] POCT SARS-COV-2 ANTIGEN (BINAX NOW) 2023-10-24 16:27:00 Morena Umana [facility] [place] INJECTION AA&/STRD TRIGEMINAL NERVE EACH BRANCH 2023-10-16 11:23:43 Allie Dias [facility] XR CHEST 2 VW 2023-08-02 03:54:39 Jose Manuel Waldron [facility] RAPID STREP SCREEN FOR GROUP A 2023-07-31 04:55:00 Anisha Moreno [facility] RAPID INFLUENZA A/B 2023-07-31 04:55:00 Gabi Moreno [facility] COVID-19 (ID NOW RAPID TESTING) 2023-07-31 04:55:00 Anisha Moreno [facility] POCT MOLECULAR STREP 2023-07-29 22:43:00 Unknown, Attstephanie kuhn [facility] POCT SARS-COV-2 ANTIGEN (BINAX NOW) 2023-04-04 23:40:00 Román Moon [facility] POCT MOLECULAR FLU 2023-04-04 23:27:00 Unknown, Attend ing [facility] ASSIGNMENT OF BENEFITS 2022-11-28 21:11:40 Docto r Unassigned, [place] [facility] ASSIGNMENT OF BENEFITS 2022-11-13 13:50:24 Docto r Unassigned, [place] [facility] XR SHOULDER 2+ VW LEFT 2022-11-13 13:40:06 Jamie Henry [facility] CONSENT/REFUSAL FOR DIAGNOSIS AND TREATMENT 2022-11-13 11:59:26 Doctor Unassigned, [place] [facility] XR ANKLE 3+ VW LEFT 2022-09-27 22:46:58 Ubaldo Oneill [facility] ASSIGNMENT OF BENEFITS 2022-09-27 22:35:55 Docto r Unassigned, [place] [facility] DME/SUPPLY JUSTIFICATION 2022-06-12 05:01:00 Doc gracia Unassigned, [place] [facility] INSURANCE CORRESPONDENCE 2022-05-27 05:01:00 Doc tor Unassigned, [place] [facility] PATIENT FINANCIAL POLICY 2022-05-07 21:31:30 Doctor Unassigned, [place] [facility] SCANNED LAB RESULTS 2022-04-24 06:01:00 Doctor Lavon perry, [place] [facility] DME/SUPPLY JUSTIFICATION 2022-04-08 06:01:00 Doc gracia Unassigned, [place] [facility] POCT MOLECULAR STREP 2022-03-19 18:26:00 Unknown, Attstephanie kuhn [facility] POCT MOLECULAR FLU 2022-03-19 18:10:00 Unknown, Attend ing [facility] CBC WITH DIFF 2022-03-06 10:16:[address] [facility] CENTRAL NEURAXIAL BLOCK 2022-03-04 15:26:55 Ang Carlos [facility] CBC WITH DIFF 2022-03-03 17:39:00 Adum, Keyla Monzon [facility] PROTHROMBIN TIME / INR 2022-03-03 17:39:00 Adum, Lazaro Mcintosh [facility] ACTIVATED PARTIAL THRMPLAS MAMADOU 2022-03-03 17:39:00 Adum, Keyla Mcintosh [facility] FIBRINOGEN 2022-03-03 17:39:00 Adum, Keyla Mcintosh [facility] HEPATITIS B SURFACE ANTIGEN 2022-03-03 17:39:00 Adum, Keyla Mcintosh [facility] ADC OR ILEANA ONLY - RPR 2022-03-03 17:39:00 Adum, Madyson Mcintosh [facility] HIV 1/2 AG-AB WITH REFLEX 2022-03-03 17:39:00 Adum, Madyson Mcintosh [facility] HB ABO GROUPING 2022-03-03 17:25:00 Adum, Keyla Ruth [facility] RHO (D) IMMUNE GLOBULIN 2022-03-03 17:25:00 Master Vinson [facility] CONSENT/REFUSAL FOR DIAGNOSIS AND TREATMENT 2022-03-03 16:14:39 Doctor Unassigned, [place] [facility] NON-STRESS TEST 2022-02-28 19:12:09 Master Vinson [facility] NON-STRESS TEST 2022-02-26 03:47:25 Master Vinson [facility] POCT URINALYSIS W/O SPECIFIC GRAVITY 2022-02-25 00:00:00 Master Vinson [facility] NON-STRESS TEST 2022-02-21 20:50:17 Master Vinson [facility] TDAP VACCINE, >11 YRS, IM 2022-02-21 20:34:39 Jacob Vinson [facility] POCT URINALYSIS W/O SPECIFIC GRAVITY 2022-02-20 00:00:00 Basil Amaro [facility] URINE CULTURE 2022-02-17 23:29:00 Elio [facility] CBC WITH DIFF 2022-02-17 00:39:00 Ena Lopez [facility] PROTHROMBIN TIME / INR 2022-02-17 00:39:00 John Laura [facility] ACTIVATED PARTIAL THRMPLAS MAMADOU 2022-02-17 00:39:00 John [facility] FIBRINOGEN 2022-02-17 00:39:[address] [facility] HB ABO GROUPING 2022-02-16 03:28:00 Katelyn Thomas [facility] CBC WITH DIFF 2022-02-16 03:09:00 Katelyn Thomas [facility] PROTHROMBIN TIME / INR 2022-02-16 03:09:00 Mohsen Thomas [facility] ACTIVATED PARTIAL THRMPLAS MAMADOU 2022-02-16 03:09:00 Katelyn Thomas [facility] FIBRINOGEN 2022-02-16 03:09:00 Katelyn Thomas [facility] HEPATITIS B SURFACE ANTIGEN 2022-02-16 03:09:00 William Katelyn [facility] GROUP B STREPTOCOCCUS BY PCR 2022-02-16 03:09:00 Katelyn Thomas [facility] GALV ONLY - SYPHILIS IGG/IGM 2022-02-16 03:09:00 Carlos Noel [facility] URINE DRUG (IMMUNOASSAY) - COMPREHENSIVE DRUG SCREEN 2022-02-15 22:01:00 Adum, Keyla Mcintosh [facility] URINALYSIS 2022-02-15 22:01:00 Adum, Keyla Mcintosh [facility] US PELVIS > 14 WEEKS 2022-02-15 21:55:00 Master Vinson [facility] PROTHROMBIN TIME / INR 2022-02-15 21:11:00 Adum, Lazaro Mcintosh [facility] ACTIVATED PARTIAL THRMPLAS MAMADOU 2022-02-15 21:11:00 Adum, Keyla Mcintosh [facility] FIBRINOGEN 2022-02-15 21:11:00 AdKeyla mobley [facility] CBC WITH DIFF 2022-02-15 20:18:00 [facility] HEPATITIS B SURFACE ANTIGEN 2022-02-15 20:18:00 Karel Master [facility] ADC OR ILEANA ONLY - RPR 2022-02-15 20:18:00 Jacob Vinson [facility] HIV 1/2 AG-AB WITH REFLEX 2022-02-15 20:18:00 Katelyn Thomas [facility] HB ABO GROUPING 2022-02-15 20:10:00 Master Vinson [facility] POCT URINALYSIS W/O SPECIFIC GRAVITY 2022-02-13 15:21:00 Prem [facility] POCT URINALYSIS W/O SPECIFIC GRAVITY 2022-02-06 19:33:00 Master Vinson [facility] POCT URINALYSIS W/O SPECIFIC GRAVITY 2022-01-21 22:26:00 Prem [facility] POCT URINALYSIS W/O SPECIFIC GRAVITY 2022-01-03 00:00:00 Master Vinson [facility] POCT URINALYSIS W/O SPECIFIC GRAVITY 2021-12-06 00:00:00 Master Vinson [facility] POCT TEST 2021-11-09 20:51:00 Ubaldo Oneill [facility] URINALYSIS 2021-11-09 20:43:00 Ubaldo Oneill [facility] ASSIGNMENT OF BENEFITS 2021-11-08 15:12:51 Docto r Unassigned, [place] [facility] POCT URINALYSIS W/O SPECIFIC GRAVITY 2021-11-08 00:00:00 Prem Basil [facility] SCANNED LAB RESULTS 2021-08-30 05:01:00 Doctor Lavon perry, [place] [facility] Encounters Start Date/Time End Date/Time Encounter Type Admission Type Attending [facility] Care Facility Care Department Encounter ID Source 2022-04-17 10:01:06 Outpatient [facility] [id number] [facility] 2022-04-16 10:48:46 Outpatient [facility] [id number] [facility] 2022-04-12 09:57:47 Outpatient [facility] [id number] [facility] 2022-02-18 13:04:53 Outpatient P [facility] [id number] [facility] 2023-12-01 00:55:00 2023-12-01 02:54:00 Emergency X GENNA ANG [facility] [id number] [facility] 2023-12-01 00:55:00 2023-12-01 02:54:00 Emergency Genna Ang [facility] 1..840.114 350.1.13.10 4.2.7.2.686 [id number] [facility] 2023-10-24 11:00:00 2023-10-24 11:20:00 Urgent Care Jimena Lara Unknown, Attending [facility] 1..840.114 350.1.13.10 4.2.7.2.686 [id number] [facility] 2023-10-24 11:00:00 2023-10-24 11:00:00 Outpatient R JIMENA LARA [facility] [id number] [facility] 2023-10-16 06:07:00 2023-10-16 06:45:00 Emergency X ALLIE DIAS ANDRES [facility] [id number] [facility] 2023-10-16 06:07:00 2023-10-16 06:45:00 Emergency Allie Dias [facility] 1..840.114 350.1.13.10 4.2.7.2.686 [id number] [facility] 2023-08-25 00:00:00 2023-08-25 08:22:16 Refill Jimena Lara [facility] 1.840.114 350.1.13.10 4.2.7.2.686 [id number] [facility] 2023-08-01 21:47:00 2023-08-02 00:07:00 Emergency X CHACHO[facility] SAL[facility] [id number] [facility] 2023-08-01 21:47:00 2023-08-02 00:07:00 Emergency [place], Salmin [facility] 1.840.114 350.1.13.10 4.2.7.2.686 [id number] [facility] 2023-07-30 23:29:00 2023-07-31 01:05:00 Emergency X SCOUT, ANISHA MORENO, [facility]RIE [facility] E[facility] [id number] [facility] 2023-07-30 23:29:00 2023-07-31 01:05:00 Emergency Anisha Moreno [facility] 1.840.114 350.1.13.10 4.2.7.2.686 [id number] [facility] 2023-07-29 17:00:00 2023-07-29 18:22:[address] [facility] [id number] [facility] 2023-07-29 17:00:00 2023-07-29 17:20:00 Urgent Care Jimena Lara Unknown, Attending [facility] 1.840.114 350.1.13.10 4.2.7.2.686 [id number] [facility] 2023-04-04 17:00:00 2023-04-04 17:20:00 Urgent Care Román Moon Unknown, Attending [facility] 1.840.114 350.1.13.10 4.2.7.2.686 [id number] [facility] 2023-04-04 17:00:00 2023-04-04 17:00:00 Outpatient Alyssa YEVGENIYROMÁN Vaca [facility] [id number] [facility] 2022-11-28 16:00:00 2022-11-28 16:20:00 Urgent Care Basil Amaro Unknown, Attending [facility] 1.84.114 350.1.13.10 4.2.7.2.686 [id number] [facility] 2022-11-28 16:00:00 2022-11-28 16:00:[address] [facility] [id number] [facility] 2022-11-28 00:00:00 2022-11-28 00:00:00 Orders Only Doctor Unassigned, [place] [facility] 1.84.114 350.1.13.10 4.2.7.2.686 [id number] [facility] 2022-11-13 07:15:00 2022-11-13 09:35:00 Emergency X EVA HENRY [facility] ERT [id number] [facility] 2022-11-13 07:15:00 2022-11-13 09:35:00 Emergency Eva Henry [facility] .84.114 350.1.13.10 4.2.7.2.686 [id number] [facility] 2022-09-27 16:54:00 2022-09-27 18:28:00 Emergency X UBALDO ONEILL [facility] ERT [id number] [facility] 2022-09-27 16:54:00 2022-09-27 18:28:00 Emergency Ubaldo Oneill [facility] 1..114 350.1.13.10 4.2.7.2.686 [id number] [facility] 2022-08-13 00:00:00 2022-08-13 00:00:[address] Lind [facility] 1.2840.114 350.1.13.10 4.2.7.2.686 [id number] [facility] 2022-08-01 14:45:00 2022-08-01 15:00:00 Nurse Visit Nurse, [facility] Unknown, Attending [facility] 1..114 350.1.13.10 4.2.7.2.686 [id number] [facility] 2022-08-01 14:45:00 2022-08-01 14:45:00 Outpatient R UNKNOWN, ATTENDING [facility] [id number] [facility] 2022-08-01 00:00:00 2022-08-01 00:00:00 Case Management Sofia Lind [facility] 1.840.114 350.1.13.10 4.2.7.2.686 [id number] [facility] 2022-08-01 00:00:00 2022-08-01 00:00:00 Telephone Master Vinson [facility] 1.840.114 350.1.13.10 4.2.7.2.686 [id number] [facility] 2022-07-23 00:00:00 2022-07-23 00:00:[address]an [facility] 1.2840.114 350.1.13.10 4.2.7.2.686 [id number] [facility] 2022-07-08 10:30:00 2022-07-08 10:30:00 Outpatient R MASTER VINSON [facility] [id number] [facility] 2022-06-12 00:00:00 2022-06-12 00:00:00 Telephone Master Vinson [facility] 1.2.840.114 350.1.13.10 4.2.7.2.686 [id number] [facility] 2022-06-12 00:00:00 2022-06-12 00:00:00 Orders Only Doctor Unassigned, [place] [facility] 1.2.840.114 350.1.13.10 4.2.7.2.686 [id number] [facility] 2022-05-27 00:00:00 2022-05-27 00:00:00 Orders Only Doctor Unassigned, [place] [facility] 1.2.840.114 350.1.13.10 4.2.7.2.686 [id number] [facility] 2022-05-24 00:00:00 2022-05-24 00:00:00 Telephone Sofia Lind [facility] 1.2.840.114 350.1.13.10 4.2.7.2.686 [id number] [facility] 2022-05-23 00:00:00 2022-05-23 00:00:00 Telephone Tamara Mohan [facility] [place] [facility] 1.2.840.114 350.1.13.10 4.2.7.2.686 [id number] [facility] 2022-05-10 00:00:00 2022-05-10 00:00:00 Telephone Tamara Mohan [facility] 1.2.840.114 350.1.13.10 4.2.7.2.686 [id number] [facility] 2022-05-07 15:30:00 2022-05-07 16:15:07 Outpatient MASTER MCDUFFIE [facility] [id number] [facility] 2022-05-07 15:30:00 2022-05-07 16:15:07 Office Visit Master Vinson [facility] 1.2.840.114 350.1.13.10 4.2.7.2.686 [id number] [facility] 2022-05-07 00:00:00 2022-05-07 00:00:00 Orders Only Doctor Unassigned, [place] [facility] 1.2.840.114 350.1.13.10 4.2.7.2.686 [id number] [facility] 2022-05-06 00:00:00 2022-05-06 00:00:00 Letter (Out) Tamara Mohan [facility] [place] 1.2.840.114 350.1.13.10 4.2.7.2.686 [id number] [facility] 2022-05-03 00:00:00 2022-05-03 00:00:00 Telephone Master Vinson [facility] 1.2.840.114 350.1.13.10 4.2.7.2.686 [id number] [facility] 2022-04-29 09:45:00 2022-04-29 09:45:00 Outpatient [facility] [id number] [facility] 2022-04-24 11:00:00 2022-04-24 12:00:00 Office Visit Sofia Lind [facility] 1.2840.114 350.1.13.10 4.2.7.2.686 [id number] [facility] 2022-04-24 11:00:00 2022-04-24 11:00:00 Outpatient R SOFIA LIND [facility] [id number] [facility] 2022-04-24 00:00:00 2022-04-24 00:00:00 Orders Only Doctor Unassigned, [place] [facility] 1.2.840.114 350.1.13.10 4.2.7.2.686 [id number] [facility] 2022-04-23 08:00:00 2022-04-23 08:00:00 Outpatient [facility] [id number] [facility] 2022-04-17 09:45:00 2022-04-17 11:09:10 Outpatient [facility] [id number] [facility] 2022-04-08 00:00:00 2022-04-08 00:00:00 Orders Only Doctor Unassigned, [place] [facility] [id number] [id number] [id number] [facility] 2022-04-03 13:00:00 2022-04-03 13:34:19 Outpatient R [facility] [id number] [facility] 2022-04-03 13:00:00 2022-04-03 13:34:19 Routine Visit Master [facility] [id number] [id number] [id number] [facility] 2022-03-20 00:00:00 2022-03-20 00:00:00 Telephone Maribel Yeager [facility] [id number] [facility] 2022-03-19 11:40:00 2022-03-19 12:44:04 Outpatient R MORENA UMANA [facility] [id number] [facility] 2022-03-19 11:40:00 2022-03-19 12:44:04 Urgent Care Morena Umana Unknown, Attending [facility] 1.0.114 350.1.13.10 4.2.7.2.686 [id number] [facility] 2022-03-19 00:00:00 2022-03-19 00:00:00 Telephone Master Vinson Michael [facility] 1.0.114 350.1.13.10 4.2.7.2.686 [id number] 134 [id number] [facility] 2022-03-03 10:18:00 2022-03-06 17:30:00 Inpatient X KEYLA [facility] MARK [id number] [facility] 2022-03-03 10:18:00 2022-03-06 17:30:00 Hospital Encounter Keyla Early [facility] 1..114 350.1.13.10 4.2.7.2.686 [id number] [facility] 2022-03-05 13:00:00 2022-03-05 13:00:[address] [facility] [id number] [facility] 2022-03-04 08:45:00 2022-03-05 01:49:00 Anesthesia Event Ang Carlos [facility] 1..114 350.1.13.10 4.2.7.2.686 [id number] [facility] 2022-03-03 00:00:00 2022-03-03 00:00:00 Nurse Triage Robbin Zheng [facility] 1.0.114 350.1.13.10 4.2.7.2.686 [id number] [facility] 2022-03-03 00:00:00 2022-03-03 00:00:00 Telephone Master Vinson [facility] 1.20.114 350.1.13.10 4.2.7.2.686 [id number] 134 [id number] [facility] 2022-03-01 11:00:00 2022-03-01 11:30:00 Telemedici ne [facility] 1.2840.114 350.1.13.10 4.2.7.2.686 [id number] [facility] 2022-03-01 11:00:00 2022-03-01 11:00:00 Outpatient ANGI CASSIDY [facility] [id number] [facility] 2022-02-28 13:00:00 2022-02-28 13:00:00 Routine Visit Room, [facility] 1..840.114 350.1.13.10 4.2.7.2.686 [id number] 134 [id number] [facility] 2022-02-28 13:00:00 2022-02-28 12:01:28 Outpatient R KAREL [facility] [id number] [facility] 2022-02-25 13:00:00 2022-02-25 14:15:18 Outpatient R KAREL [facility] [id number] [facility] 2022-02-25 13:00:00 2022-02-25 14:15:18 Routine Visit Room, [facility]ILD[facility] 1..840.114 350.1.13.10 4.2.7.2.686 [id number] [facility] 2022-02-21 13:00:00 2022-02-21 14:44:15 Outpatient R KAREL [facility] [id number] [facility] 2022-02-21 13:00:00 2022-02-21 14:44:15 Routine Visit [facility] 1.20.114 350.1.13.10 4.2.7.2.686 [id number] [facility] 2022-02-20 15:30:00 2022-02-20 15:45:00 Routine Visit Prem Basil [facility] 1.20.114 350.1.13.10 4.2.7.2.686 [id number] [facility] 2022-02-20 15:30:00 2022-02-20 15:30:00 Outpatient R PREM [facility] [id number] [facility] 2022-02-15 13:24:00 2022-02-18 13:04:00 [facility] [id number] [facility] 2022-02-15 13:24:00 2022-02-18 13:04:00 Hospital Encounter Adum, Master Silvestre [facility] Juan Antonio[facility] 1..114 350.1.13.10 4.2.7.2.686 [id number] 135 [id number] [facility] 2022-02-18 00:00:00 2022-02-18 00:00:00 Telephone Karel Master Rodriguez [facility] 1.20.114 350.1.13.10 4.2.7.2.686 [id number] [facility] 2022-02-15 19:36:43 2022-02-15 19:36:43 Anesthesia Event Tony, Urbano [facility] 1.0.114 350.1.13.10 4.2.7.2.686 [id number] [facility] 2022-02-15 19:20:56 2022-02-15 19:20:56 Anesthesia Event Jimenez, Urbano [facility] 1.2.840.114 350.1.13.10 4.2.7.2.686 [id number] [facility] 2022-02-13 09:00:00 2022-02-13 09:55:12 Outpatient R PREM [facility] [id number] [facility] 2022-02-13 09:00:00 2022-02-13 09:55:12 Office Visit DellaAnastasia monterocy [facility] 1.2.840.114 350.1.13.10 4.2.7.2.686 [id number] 134 [id number] [facility] 2022-02-12 15:00:00 2022-02-12 15:30:00 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 Visit Ultrasound, Adc [facility] Asher Horowitz [facility] 1.2.840.114 350.1.13.10 4.2.7.2.686 [id number] 134 [id number] [facility] 2022-02-12 15:00:00 2022-02-12 15:00:00 Outpatient P ASHER HOROWITZ [facility] [id number] [facility] 2022-02-06 13:15:00 2022-02-06 13:56:54 Outpatient R MASTER VINSON [facility] [id number] [facility] 2022-02-06 13:15:00 2022-02-06 13:56:54 Routine Visit Master Vinson [facility] 1.2.840.114 350.1.13.10 4.2.7.2.686 [id number] 134 [id number] [facility] 2022-01-24 00:00:00 2022-01-24 00:00:00 Refill [facility] 1.2.840.114 350.1.13.10 4.2.7.2.686 [id number] 134 [id number] [facility] 2022-01-22 00:00:00 2022-01-22 00:00:00 Telephone Master [facility] 1.2.840.114 350.1.13.10 4.2.7.2.686 [id number] 134 [id number] [facility] 2022-01-21 16:15:00 2022-01-21 16:43:45 Outpatient R BASIL AMARO [facility] [id number] [facility] 2022-01-21 16:15:00 2022-01-21 16:43:45 Routine Visit Prem Basli [facility] 1.2.840.114 350.1.13.10 4.2.7.2.686 [id number] 134 [id number] [facility] 2022-01-17 00:00:00 2022-01-17 00:00:00 Telephone Master Vinson [facility] 1.2.840.114 350.1.13.10 4.2.7.2.686 [id number] 134 [id number] [facility] 2022-01-03 15:45:00 2022-01-03 16:32:04 Outpatient R MASTER VINSON [facility] [id number] [facility] 2022-01-03 15:45:00 2022-01-03 16:32:04 Routine Visit Master [facility]inson [facility] 1.2.840.114 350.1.13.10 4.2.7.2.686 [id number] 134 [id number] [facility] 2021-12-17 09:30:00 2021-12-17 09:45:00 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 Visit 2, Adc Lab Master Vinson [facility] 1.2.840.114 350.1.13.10 4.2.7.2.686 [id number] [facility] 2021-12-17 09:30:00 2021-12-17 09:30:00 Outpatient R KAREL [facility] [id number] [facility] 2021-12-06 13:00:00 2021-12-06 13:57:27 Outpatient R KAREL [facility] [id number] [facility] 2021-12-06 13:00:00 2021-12-06 13:57:27 Routine Visit Master Vinson [facility] 1.2.840.114 350.1.13.10 4.2.7.2.686 [id number] [facility] 2021-12-05 00:00:00 2021-12-05 00:00:00 Telephone Master Vinson [facility] 1.2.840.114 350.1.13.10 4.2.7.2.686 [id number] [facility] 2021-11-09 14:57:00 2021-11-09 17:38:00 Emergency X UBALDO ONEILL [facility] ERT [id number] [facility] 2021-11-09 14:57:00 2021-11-09 17:38:00 Emergency Ubaldo Oneill S [facility] 1.2.840.114 350.1.13.10 4.2.7.2.686 [id number] [facility] 2021-11-09 14:20:00 2021-11-09 14:50:28 Outpatient R JIMENA LARA [facility] [id number] [facility] 2021-11-09 14:20:00 2021-11-09 14:40:00 Nurse Visit Nurse, Ang Db Urgent Care Jimena Lara [facility] 1.840.114 350.1.13.10 4.2.7.2.686 [id number] [facility] 2021-11-09 14:20:00 2021-11-09 14:20:00 Outpatient R JIMENA LARA [facility] [id number] [facility] 2021-11-09 00:00:00 2021-11-09 00:00:00 Telephone Master Vinson [facility] 1.0.114 350.1.13.10 4.2.7.2.686 [id number] 134 [id number] [facility] 2021-11-08 10:15:00 2021-11-08 11:11:10 Outpatient R ЕЛЕНАMAGENTERRIE [facility] [id number] [facility] 2021-11-08 10:15:00 2021-11-08 11:11:10 Outpatient R DELLATERRIE [facility] [id number] [facility] 2021-11-08 10:15:00 2021-11-08 11:11:10 Routine Visit Prem Basil [facility] 1.840.114 350.1.13.10 4.2.7.2.686 [id number] 134 [id number] [facility] 2021-11-08 00:00:00 2021-11-08 00:00:00 Orders Only Doctor Unassigned, [place] [facility] 1.0.114 350.1.13.10 4.2.7.2.686 [id number] [facility] 2021-11-08 00:00:00 2021-11-08 00:00:00 Telephone Lanie Hanna [facility] [place] 1.840.114 350.1.13.10 4.2.7.2.686 [id number] [facility] 2021-11-05 13:45:00 2021-11-05 16:48:46 Outpatient P NADEGE HERNANDEZ [facility] [id number] [facility] 2021-11-05 13:45:00 2021-11-05 15:00:00 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 Visit Ultrasound, Ang-Mfm Danya ShirleyshaunNadege nava [facility] MARKETING 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 MATERNAL & CHILD HEALTH [facility] 1.2.840.114 350.1.13.10 4.2.7.2.686 [id number] [facility] 2021-11-05 13:45:00 2021-11-05 13:45:00 Outpatient P NADGEE HERNANDEZ [facility] [id number] [facility] 2021-11-05 10:45:00 2021-11-05 10:45:[address] [facility] [id number] [facility] 2021-11-05 10:45:00 2021-11-05 10:45:[address] [facility] [id number] [facility] 2021-10-17 09:30:00 2021-10-17 09:45:00 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 Visit 2, Adc Lab Karel [facility] 1.2.840.114 350.1.13.10 4.2.7.2.686 [id number] [facility] 2021-10-17 09:30:00 2021-10-17 09:30:00 Outpatient R KAREL MASTER [facility] [id number] [facility] 2021-10-17 09:30:00 2021-10-17 09:30:00 Outpatient R VINSONMASTER [facility] [id number] [facility] 2021-10-15 00:00:00 2021-10-15 00:00:00 Telephone Karel [facility] 1.2.840.114 350.1.13.10 4.2.7.2.686 [id number] 134 [id number] [facility] 2021-10-14 00:00:00 2021-10-14 00:00:00 Case Management Master Vinson [facility] 1.2.840.114 350.1.13.10 4.2.7.2.686 [id number] 134 [id number] [facility] 2021-10-12 00:00:00 2021-10-12 00:00:00 Telephone Master Vinson [facility] 1.2.840.114 350.1.13.10 4.2.7.2.686 [id number] [facility] 2021-10-11 16:15:00 2021-10-11 17:29:44 Outpatient R MASTER VINSON [facility] [id number] [facility] 2021-10-11 16:15:00 2021-10-11 17:29:44 Routine Visit Master Vinson [facility] 1.2.840.114 350.1.13.10 4.2.7.2.686 [id number] 134 [id number] [facility] 2021-10-11 16:15:00 2021-10-11 17:29:44 Outpatient R MASTER VINSON [facility] [id number] [facility] 2021-09-27 16:15:00 2021-09-27 16:15:00 Outpatient R MASTER VINSON [facility] [id number] [facility] 2021-09-21 00:00:00 2021-09-21 00:00:00 Telephone Master [facility] 1.2.840.114 350.1.13.10 4.2.7.2.686 [id number] 134 [id number] [facility] 2021-09-20 00:00:00 2021-09-20 00:00:00 Telephone Master Vinson [facility] 1.2840.114 350.1.13.10 4.2.7.2.686 [id number] 134 [id number] [facility] 2021-08-30 11:45:00 2021-08-30 12:00:00 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 Visit 2, Adc Lab Master Vinson [facility] 1.2840.114 350.1.13.10 4.2.7.2.686 [id number] [facility] 2021-08-30 10:45:00 2021-08-30 11:51:00 Routine Visit Prem Basil [facility] 1.2840.114 350.1.13.10 4.2.7.2.686 [id number] [facility] 2021-08-30 11:45:00 2021-08-30 11:45:00 Outpatient R MASTER VINSON [facility] [id number] [facility] 2021-08-30 10:45:00 2021-08-30 10:45:00 Outpatient R BASIL AMARO [facility] [id number] [facility] 2021-08-30 00:00:00 2021-08-30 00:00:00 Orders Only Doctor Unassigned, [place] [facility] 1..114 350.1.13.10 4.2.7.2.686 [id number] [facility] 2021-08-28 00:00:00 2021-08-28 00:00:00 Patient Secure Msg Doctor Unassigned, [place] [facility] MARKETING 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 1.0.114 350.1.13.10 4.2.7.2.686 [id number] [facility] 2021-08-25 16:20:00 2021-08-25 16:27:41 Urgent Care Daysi, Amina J Red, Count includes the [facility] 1.2.840.114 350.1.13.10 4.2.7.2.686 [id number] [facility] 2021-08-25 16:20:00 2021-08-25 16:27:[address] [facility] [id number] [facility] 2021-08-25 16:20:00 2021-08-25 16:27:[address] [facility] [id number] [facility] 2021-08-24 00:00:00 2021-08-24 00:00:00 Telephone Tyree Posada [facility] MARKETING INFORMATION MANAGER [facility] & CHILD [facility] 1..840.114 350.1.13.10 4.2.7.2.686 [id number] [facility] 2021-08-24 00:00:00 2021-08-24 00:00:00 Telephone Tyree Posada [facility] MARKETING INFORMATION MANAGER [facility] & CHILD [facility] 1.2.840.114 350.1.13.10 4.2.7.2.686 [id number] [facility] 2021-08-15 13:45:00 2021-08-15 14:32:[address]O D[address]ELS [facility] [id number] [facility] 2021-08-15 13:45:00 2021-08-15 14:32:31 Outpatient [address]O DANIELS [facility] [id number] [facility] 2021-08-15 13:45:00 2021-08-15 14:32:31 Office Visit Tyree Posada, Benito Pisano [facility] MARKETING 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 MATERNAL & CHILD [facility] 1.2.840.114 350.1.13.10 4.2.7.2.686 [id number] [facility] 2021-08-15 13:45:00 2021-08-15 14:32:31 Outpatient R MEAGAN BENITO [facility] [id number] [facility] 2021-08-02 16:00:00 2021-08-02 17:15:40 Outpatient R MASTER VINSON [facility] [id number] [facility] 2021-08-02 16:00:00 2021-08-02 17:15:40 Routine Visit Master Vinson [facility] 1.2.840.114 350.1.13.10 4.2.7.2.686 [id number] [facility] 2021-08-02 16:00:00 2021-08-02 16:00:00 Outpatient R MASTER VINSON [facility] [id number] [facility] 2021-08-02 00:00:00 2021-08-02 00:00:00 Orders Only Doctor Unassigned, [place] [facility] 1.2.840.114 350.1.13.10 4.2.7.2.686 [id number] [facility] 2021-07-25 00:00:00 2021-07-25 00:00:00 Telephone Master Vinson [facility] BUILDING 1.2.840.114 350.1.13.10 4.2.7.2.686 [id number] [facility] 2021-07-23 09:30:00 2021-07-23 09:45:00 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 Visit 2, Adc Lab Master Vinson [facility] BUILDING 1.2.840.114 350.1.13.10 4.2.7.2.686 [id number] [facility] 2021-07-23 09:30:00 2021-07-23 09:30:[address] [facility] [id number] [facility] 2021-07-23 09:30:00 2021-07-23 09:30:00 Outpatient R MASTER VINSON [facility] [id number] [facility] 2021-07-21 08:15:00 2021-07-21 08:30:00 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 Visit Pob, Adc Lab Main Master Vinson [facility] BUILDING 1.2.840.114 350.1.13.10 4.2.7.2.686 [id number] [facility] 2021-07-21 08:15:00 2021-07-21 08:15:[address] [facility] [id number] [facility] 2021-07-21 08:15:00 2021-07-21 08:15:00 Outpatient R MASTER VINSON [facility] [id number] [facility] 2021-07-19 16:00:00 2021-07-19 16:15:00 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 Visit 2, Adc Lab [facility] 1.2.840.114 350.1.13.10 4.2.7.2.686 [id number] [facility] 2021-07-19 14:30:00 2021-07-19 16:05:23 Outpatient R MASTER VINSON [facility] [id number] [facility] 2021-07-19 14:30:00 2021-07-19 16:05:23 Initial Visit Master Vinson [facility]ILD[facility] 1.2.840.114 350.1.13.10 4.2.7.2.686 [id number] [facility] 2021-07-19 14:30:00 2021-07-19 16:05:23 Outpatient R MASTER VINSON [facility] [id number] [facility] 2021-07-16 10:40:00 2021-07-16 11:10:18 Outpatient R ILEANA MACIASTANY [facility] [id number] [facility] 2021-07-16 10:40:00 2021-07-16 11:10:18 Urgent Care Ileana [facility] MEDICAL OFF[facility] BUILDING 1..840.114 350.1.13.10 4.2.7.2.686 [id number] [facility] 2021-05-15 12:20:00 2021-05-15 12:54:59 Outpatient [facility] [id number] [facility] 2021-05-05 11:00:00 2021-05-05 11:00:[address]LEY [facility] [id number] [facility] 2021-04-29 19:00:00 2021-04-29 19:30:49 Outpatient R GABRIEL LAWLER [facility] [id number] [facility] 2021-04-29 19:00:00 2021-04-29 19:30:49 Urgent Care Gabriel Lawler Kimberly COUNTS INCLUDE 234 BEDS AT THE [facility] 1.2.840.114 350.1.13.10 4.2.7.2.686 [id number] [facility] 2021-03-20 00:00:00 2021-03-20 00:00:00 Letter (Out) Jazmin Escobar [facility] 1..840.114 350.1.13.10 4.2.7.2.686 [id number] [facility] 2021-03-19 12:30:00 2021-03-19 14:18:18 Outpatient R GLORIA EMILEE [facility] [id number] [facility] 2021-03-19 12:30:00 2021-03-19 12:45:00 Laboratory Only Only, Ang Db Test Unknown, Attending [facility] 1.2840.114 350.1.13.10 4.2.7.2.686 [id number] [facility] 2021-03-19 00:00:00 2021-03-19 00:00:00 Letter (Out) Doctor Unassigned, [place] [facility] 1.2840.114 350.1.13.10 4.2.7.2.686 [id number] [facility] 2021-03-19 00:00:00 2021-03-19 00:00:00 Letter (Out) Doctor Unassigned, [place] [facility] 1.2840.114 350.1.13.10 4.2.7.2.686 [id number] [facility] 2020-12-08 00:00:00 2020-12-08 00:00:00 Telephone Robbin Zheng [facility] 1.2840.114 350.1.13.10 4.2.7.2.686 [id number] [facility] 2020-12-07 12:17:12 2020-12-07 12:32:12 Urgent Care Amina Tavarez [facility]?Manolo [facility] 1.284.114 350.1.13.10 4.2.7.2.686 [id number] [facility] 2020-12-07 12:00:00 2020-12-07 12:00:[address] [facility] [id number] [facility] 2020-12-07 00:00:00 2020-12-07 00:00:00 Letter (Out) Doctor Unassigned, [place] [facility] 1.2840.114 350.1.13.10 4.2.7.2.686 [id number] [facility] 2020-10-23 00:00:00 2020-10-23 00:00:00 Telephone Maxi Erica Daniel [facility] 1.2840.114 350.1.13.10 4.2.7.2.686 [id number] [facility] 2020-10-21 13:27:19 2020-10-21 14:00:52 Urgent Care Romero [facility] 1.2840.114 350.1.13.10 [id number] [id number] [facility] 2020-10-21 13:20:00 2020-10-21 13:20:00 Outpatient [facility] [id number] [facility] 2020-10-21 00:00:00 2020-10-21 00:00:00 Orders Only Doctor Unassigned, [place] [facility] [id number] 350.1.13.10 [id number] [id number] [facility] 2020-10-21 00:00:00 2020-10-21 00:00:00 Letter (Out) Doctor Unassigned, [place] [facility] 1.2840.114 350.1.13.10 [id number] [id number] [facility] Results Test Description Test Time Test Comments Results Resul t Comments Source XR CHEST 2 VW 2023-12-01 07:36:21 Study: Two view chest. Ordering Physician: MALAIKA ANG Date: 12/01/2023 1:15 AM History:left rib pain and vaping COMPARISON: None. Findings: Frontal and lateral views of the chest demonstrate a normal heartsize. The lungs are clear without infiltrate, pleural effusion orpneumothorax. No acute osseous abnormality is visualized. [facility]BIN[facility] NOW)2023-10-24 16:29:00* Test Item Value Reference Range Interpretation Comme nts POCT SARS-COV-2 ANTIGEN (test code = 45491-6) Not Detected Not Detected, See Comment On board controls acceptable with C Line (test code = 3574) Yes DOUG (test code = DOUG) accurate developme nt and interpretation of all internal controls Lab Interpretation (test code = 94088-4) [facility] [id number] 11:23:43Allie Dias MD ? ? 10/16/2023 ?6:27 AMDental Block Date/Time: 10/16/2023 6:23 AM Performed by: Allie Dias MDAuthorized by: Allie Dias MD ?Consent: ?Consent obtained: ?Verbal ?Consent given by: ?Patient ?Risks discussed: ?Allergic reaction, infection, nerve damage, swelling, hematoma, intravascular injection, pain and unsuccessful block ?Alternatives discussed: ?No treatment and referralUniversal protocol: ?Procedure explained and questions answered to patient or proxy's satisfaction: yes ? ?Relevant documents present and verified: yes ? ?Patient identity confirmed: ?Verbally with patient, hospital-assigned identification number and arm bandIndications: ?Indications: dental pain ?Location: ?Block type: ?Inferior alveolar ?Laterality: ?LeftProcedure details: ?Needle gauge: ?27 G ?Anesthetic injected: ?Bupivacaine 0.5% WITH epi ?Injection procedure: ?Anatomic landmarks identified, introduced needle, anatomic landmarks palpated, negative aspiration for blood and incremental injectionPost- procedure details: ?Outcome: ?Anesthesia achieved ?Procedure completion: ?Tolerated well, no immediate complicationsUnMidland Memorial HospitalXR CHEST 2 [id number] 04:28:27Exam: Chest (2 Views), 08/01/2023 9:45 PM. Ordering Physician: JOSE MANUEL WALDRON. History: Fever, coughsorethroat . Technique: Two views of the chest. Comparison: None. Findings: No focal consolidation.No pneumothorax or effusion. Normal size of thecardiac silhouette. No acute osseous finding.[facility] MOLECULAR [id number] 22:51:06* Test Item Value Reference Range Interpretation Comme nts POCT Molecular Strep (test c ode = 04129-5) Negative Negative Lab Interpretation (test cod e = 67639-0) Normal [facility] SARS-COV-2 ANTIGEN (BINAX NOW)2023-04-04 23:40:00* Test Item Value Reference Range Interpretation Comme nts POCT SARS-COV-2 ANTIGEN (kisha t code = 34834-0) Not Detected Not Detected On board controls acceptable with C Line (test code = 3574) Yes [facility] Molecular [id number] 23:39:45* Test Item Value Reference Range Interpretation Comme nts POCT Molecular FluA (test co de = 13117-0) Negative Negative POCT Molecular FluB (test co de = 87425-0) Negative Negative Lab Interpretation (test cod e = 03568-1) Normal [facility] MOLECULAR [id number] 18:34:34* Test Item Value Reference Range Interpretation Comme nts POCT Molecular Strep (test c ode = 72322-3) Negative Negative Lab Interpretation (test cod e = 14329-8) Normal [facility] MOLECULAR [id number] 18:22:19* Test Item Value Reference Range Interpretation Comme nts POCT Molecular FluA (test co de = 57930-5) Negative Negative POCT Molecular FluB (test co de = 48512-6) Negative Negative Lab Interpretation (test cod e = 48086-7) Normal [facility] with [id number] 11:09:01* Test Item Value Reference Range Interpretation Comme nts WBC (test code = 6690-2) See_Comment H [Automated messa ge] The system which generated this result transmitted reference range: 4.30 - 11.10 10*3/?L. The reference range was not used to interpret this result as normal/abnormal. RBC (test code = 789-8) See_Comment L [Automated messa ge] The system which generated this result transmitted reference range: 3.93 - 5.25 10*6/?L. The reference range was not used to interpret this result as normal/abnormal. HGB (test code = 718-7) 9.1 g/dL 11.6-15.0 L HCT (test code = 4544-3) 27.2 % 35.7-45.2 L MCV (test code = 787-2) 89.2 fL 80.6-95.5 MCH (test code = 785-6) 29.8 pg 25.9-32.8 MCHC (test code = 786-4) 33.5 g/dL 31.6-35.1 RDW-SD (test code = 58328-5) 39.0 fL 39.0-49.9 RDW-CV (test code = 788-0) 12.3 % 12.0-15.5 PLT (test code = 777-3) See_Comment [Automated messa ge] The system which generated this result transmitted reference range: 166 - 358 10*3/?L. The reference range was not used to interpret this result as normal/abnormal. MPV (test code = 07034-4) 10.2 fL 9.5-12.9 NRBC/100 WBC (test code = 1002332051) See_Comment [Automated [employer] ssage] The system which generated this result transmitted reference range: 0.0 - 10.0 /100 WBCs. The reference range was not used to interpret this result as normal/abnormal. NRBC x10^3 (test code = 0413600741) See_Comment [Automated [employer]] The system which generated this result transmitted reference range: 10*3/?L. The reference range was not used to interpret this result as normal/abnormal. GRAN MAT (NEUT) % (test code = 770-8) 74.6 % IMM GRAN % (test code = 8990253302) 0.50 % LYMPH % (test code = 736-9) 15.7 % MONO % (test code = 5905-5) 7.1 % EOS % (test code = 713-8) 1.8 % BASO % (test code = 706-2) 0.3 % GRAN MAT x10^3(ANC) (test code = 5045243578) 8.61 10*3/uL 1.88-7.09 H IMM GRAN x10^3 (test code = 9981257295) 0.06 10*3/uL 0.00-0.06 LYMPH x10^3 (test code = 731-0) 1.82 10*3/uL 1.32-3.29 MONO x10^3 (test code = 742-7) 0.82 10*3/uL 0.33-0.92 EOS x10^3 (test code = 711-2) 0.21 10*3/uL 0.03-0.39 BASO x10^3 (test code = 704-7) 0.04 10*3/uL 0.01-0.07 Lab Interpretation (test code = 36332-9) Abnormal [facility]) IMMUNE [id number] 08:56:00* Test Item Value Reference Range Interpretation Comme nts RHIG CANDIDATE? (test code = 5055) Yes- see comment A Patient is not a candidate for RhIg- Patient is Rh Positive.Performe d at [facility] Laboratory Services - [facility] Blood [address] Free: [phone] No. [id number] Lab Interpretation (test code = 97748-9) Abnormal [facility]andType and Screen - ONCE [id number] 19:22:14 * Test Item Value Reference Range Interpretation Comme nts ABO & RH (test code = 20) A Positive Performed at [facility] Laboratory [facility] Blood [place] [address]Toll Free: [phone] No. [id number] IAT (test code = 1185) Negative Performed at [facility] Laboratory [facility] Blood [place] [address]Toll Free: [phone] No. [id number] [facility]andFIBRINOGEN2022-12-25 18:07:58* Test Item Value Reference Range Interpretation Comme [facility] Fibrinogen (test code = 1459268760) 473 mg/dL 214-470 H Lab Interpretation (test cod e = 44330-4) Abnormal [facility]ellandaPTT2022-12-25 18:07:18* Test Item Value Reference Range Interpretation Comme nts APTT Patient (test code = 3173-2) See_Comment [Automated message] The system which generated this result transmitted reference range: 23 - 38 Seconds. The reference range was not used to interpret this result as normal/abnormal. DOUG (test code = DOUG) The [facility] patient population mean normal value for aPTT is 30 seconds. Lab Interpretation (test code = 56014-8) Normal [facility]ellandProthrombin Time / [id number] 18:05:17* Test Item Value Reference Range Interpretation Comme nts PROTIME PATIENT (test code = 5964-2) See_Comment [Automated [employer]] The system which generated this result transmitted reference range: 12.0 - 14.7 Seconds. The reference range was not used to interpret this result as normal/abnormal. INR (test code = 6301-6) Normal INR <1.1; Warfarin Therapeutic range 2.0 to 3.0 or 2.5 to 3.5, depending upon the indications. Lab Interpretation (test code = 09390-1) Normal [facility]andPO[facility] URINALYSIS W/O SPECIFIC [id number] 19:35:00* Test Item Value Reference Range Interpretation Comme nts POCT PH U (test code = 3254) n/a 5-8 POCT U LEUK EST (test code = 3263) n/a Negative - Negative POCT U NIT (test code = 3262) n/a Negative - Negati ve POCT U PROT (test code = 3259) negative Negative - Negat laly POCT U GLU (test code = 3256) negative Negative - Negati ve POCT U KETONE (test code = 3258) n/a Negative - Neg ative POCT U BLD (test code = 3257) n/a Negative - Negati ve [facility] URINALYSIS W/O SPECIFIC [id number] 19:09:00* Test Item Value Reference Range Interpretation Comme nts POCT PH U (test code = 3254) n/a 5-8 POCT U LEUK EST (test code = 3263) n/a Negative - N egative POCT U NIT (test code = 3262) n/a Negative - Negati ve POCT U PROT (test code = 3259) neg Negative - Negat laly POCT U GLU (test code = 3256) neg Negative - Negati ve POCT U KETONE (test code = 3258) n/a Negative - Neg ative POCT U BLD (test code = 3257) n/a Negative - Negati ve [facility]andPO[facility] URINALYSIS W/O SPECIFIC [id number] 22:00:00* Test Item Value Reference Range Interpretation Comme nts POCT PH U (test code = 3254) N/A 5-8 POCT U LEUK EST (test code = 3263) N/A Negative - N egative POCT U NIT (test code = 3262) N/A Negative - Negati ve POCT U PROT (test code = 3259) NEG Negative - Negat laly POCT U GLU (test code = 3256) NEG Negative - Negati ve POCT U KETONE (test code = 3258) N/A Negative - Neg ative POCT U BLD (test code = 3257) N/A Negative - Negati ve [facility]andGROUP B STREPTOCOCCUS BY [id number] 16:04:55* Test Item Value Reference Range Interpretation Comme nts Group B Streptococcus by PCR (test code = 65140-9) Negative Negative Lab Interpretation (test cod e = 73264-1) Normal [facility]andFIBRINOGEN2022-12-11 01:02:37* Test Item Value Reference Range Interpretation Comme nts Fibrinogen (test code = 4593302030) 370 mg/dL 167-453 Lab Interpretation (test cod e = 26694-0) Normal [facility]ellandACTIVATED PARTIAL THRMPLAS [id number] 01:02:37* Test Item Value Reference Range Interpretation Comme nts APTT Patient (test code = 3173-2) See_Comment L [Automated [employer]] The system which generated this result transmitted reference range: 26 - 36 Seconds. The reference range was not used to interpret this result as normal/abnormal. Lab Interpretation (test code = 12952-0) Abnormal [facility]ellandProthrombin Time / [id number] 01:02:37* Test Item Value Reference Range Interpretation Comme nts PROTIME PATIENT (test code = 5964-2) See_Comment [Automated [employer]] The system which generated this result transmitted reference range: 10.1 - 12.6 Seconds. The reference range was not used to interpret this result as normal/abnormal. INR (test code = 6301-6) Normal INR <1.1; Warfarin Therapeutic range 2.0 to 3.0 or 2.5 to 3.5, depending upon the indications. Lab Interpretation (test code = 84774-1) Normal [facility] WITH [id number] 00:52:19* Test Item Value Reference Range Interpretation Comme nts WBC (test code = 6690-2) See_Comment H [Automated message] The system which generated this result transmitted reference range: 4.30 - 11.10 10*3/?L. The reference range was not used to interpret this result as normal/abnormal. RBC (test code = 789-8) See_Comment L [Automated message] The system which generated this result transmitted reference range: 3.93 - 5.25 10*6/?L. The reference range was not used to interpret this result as normal/abnormal. HGB (test code = 718-7) 11.2 g/dL 11.6-15.0 L HCT (test code = 4544-3) 32.9 % 35.7-45.2 L MCV (test code = 787-2) 88.4 fL 80.6-95.5 MCH (test code = 785-6) 30.1 pg 25.9-32.8 MCHC (test code = 786-4) 34.0 g/dL 31.6-35.1 RDW-SD (test code = 70651-1) 38.8 fL 39.0-49.9 L RDW-CV (test code = 788-0) 12.0 % 12.0-15.5 PLT (test code = 777-3) See_Comment [Automated message] The system which generated this result transmitted reference range: 166 - 358 10*3/?L. The reference range was not used to interpret this result as normal/abnormal. MPV (test code = 70357-3) 9.7 fL 9.5-12.9 NRBC/100 WBC (test code = 2890198407) See_Comment [Automated message] The system which generated this result transmitted reference range: 0.0 - 10.0 /100 WBCs. The reference range was not used to interpret this result as normal/abnormal. NRBC x10^3 (test code = 3030083980) See_Comment [Automated message] The system which generated this result transmitted reference range: 10*3/?L. The reference range was not used to interpret this result as normal/abnormal. GRAN MAT (NEUT) % (test code = 770-8) 90.8 % IMM GRAN % (test code = 3617458227) 0.80 % LYMPH % (test code = 736-9) 5.0 % MONO % (test code = 5905-5) 3.2 % EOS % (test code = 713-8) 0.0 % BASO % (test code = 706-2) 0.2 % GRAN MAT x10^3(ANC) (test code = 3201147586) 14.13 10*3/uL 1.88-7.09 H IMM GRAN x10^3 (test code = 1912204228) 0.12 10*3/uL 0.00-0.06 H LYMPH x10^3 (test code = 731-0) 0.78 10*3/uL 1.32-3.29 L MONO x10^3 (test code = 742-7) 0.49 10*3/uL 0.33-0.92 EOS x10^3 (test code = 711-2) 0.03-0.39 L BASO x10^3 (test code = 704-7) 0.03 10*3/uL 0.01-0.07 Lab Interpretation (test code = 20973-0) Abnormal [facility]ellandHepatitis B Surface [id number] 20:31:23 * Test Item Value Reference Range Interpretation Comme nts HBsAg Semi-Quantitative (kisha t code = 5195-3) Negative Negative [facility] ONLY - SYPHILIS [id number] 15:15:47* Test Item Value Reference Range Interpretation Comme nts Syphilis IgG/IgM (test code = 17729-5) Non-reactive Non-reactive DOUG (test code = DOUG) Non-reactive - No serologic evidence of T. pallidum infection. Cannot exclude incubating or early syphilis. Submit a second specimen in 2-4 weeks if syphilis is clinically suspected. Equivocal - Further testing to follow. Reactive - Further testing to follow. Lab Interpretation (test code = 93252-9) Normal [facility] 1/2 AG-AB WITH [id number] 12:16:58* Test Item Value Reference Range Interpretation Comme nts HIV Semi-quantitative (test code = 04576-7) Negative Negative DOUG (test code = DOUG) Non-reactive for HIV-1 antigen and HIV-1/HIV-2 antibodies. ?No laboratory evidence of HIV infection. ?Repeat in 2-4 weeks if acute HIV infection is suspected. [facility]andADC OR [facility] ONLY - [id number] 09:45:59* Test Item Value Reference Range Interpretation Comme nts RPR (Qualitative) (test code = 34702-2) Nonreactive Nonreactive Lab Interpretation (test cod e = 53939-1) Normal [facility]andType and Screen - ONCE [id number] 04:31:11 * Test Item Value Reference Range Interpretation Comme nts ABO & RH (test code = 20) A POSITIVE Performed at [facility] Laboratory [facility] Blood [place] [id number] Free: [phone] No. [id number] IAT (test code = 1185) Negative Performed at [facility] Laboratory [facility] Blood [address] [address]Rpmn Free: [phone] No. [id number] [facility]ellandHEPATITIS B SURFACE [id number] 00:01:55 * Test Item Value Reference Range Interpretation Comme nts HBsAg Semi-Quantitative (kisha t code = 5195-3) Negative Negative [facility]andHIV 1/2 AG-AB WITH [id number] 22:43:59* Test Item Value Reference Range Interpretation Comme nts HIV Semi-quantitative (test code = 08351-2) Negative Negative DOUG (test code = DOUG) Non-reactive for HIV-1 antigen and HIV-1/HIV-2 antibodies. ?No laboratory evidence of HIV infection. ?Repeat in 2-4 weeks if acute HIV infection is suspected. [facility]ellandType and Screen - ONCE [id number] 22:30:17* Test Item Value Reference Range Interpretation Comme nts ABO & RH (test code = 20) A Positive Performed at [facility] Laboratory Services - [facility] Blood [address] [place] [address]Duyo Free: [phone] No. [id number] IAT (test code = 1185) Negative Performed at [facility] Laboratory Services - [facility] Blood [address] [place], [place] [id number] Free: [phone] No. [id number] [facility]ellandCB WITH [id number] 20:31:56* Test Item Value Reference Range Interpretation Comme nts WBC (test code = 6690-2) See_Comment H [Automated messa ge] The system which generated this result transmitted reference range: 4.30 - 11.10 10*3/?L. The reference range was not used to interpret this result as normal/abnormal. RBC (test code = 789-8) See_Comment [Automated messa ge] The system which generated this result transmitted reference range: 3.93 - 5.25 10*6/?L. The reference range was not used to interpret this result as normal/abnormal. HGB (test code = 718-7) 12.8 g/dL 11.6-15.0 HCT (test code = 4544-3) 38.4 % 35.7-45.2 MCV (test code = 787-2) 87.9 fL 80.6-95.5 MCH (test code = 785-6) 29.3 pg 25.9-32.8 MCHC (test code = 786-4) 33.3 g/dL 31.6-35.1 RDW-SD (test code = 23838-2) 37.1 fL 39.0-49.9 L RDW-CV (test code = 788-0) 11.6 % 12.0-15.5 L PLT (test code = 777-3) See_Comment [Automated messa ge] The system which generated this result transmitted reference range: 166 - 358 10*3/?L. The reference range was not used to interpret this result as normal/abnormal. MPV (test code = 37468-7) 9.8 fL 9.5-12.9 NRBC/100 WBC (test code = 9598882167) See_Comment [Automated me ssage] The system which generated this result transmitted reference range: 0.0 - 10.0 /100 WBCs. The reference range was not used to interpret this result as normal/abnormal. NRBC x10^3 (test code = 4336260645) See_Comment [Automated messa ge] The system which generated this result transmitted reference range: 10*3/?L. The reference range was not used to interpret this result as normal/abnormal. GRAN MAT (NEUT) % (test code = 770-8) 73.4 % IMM GRAN % (test code = 6555570246) 0.70 % LYMPH % (test code = 736-9) 18.0 % MONO % (test code = 5905-5) 7.1 % EOS % (test code = 713-8) 0.4 % BASO % (test code = 706-2) 0.4 % GRAN MAT x10^3(ANC) (test code = 2673811086) 9.91 10*3/uL 1.88-7.09 H IMM GRAN x10^3 (test code = 1028591889) 0.10 10*3/uL 0.00-0.06 H LYMPH x10^3 (test code = 731-0) 2.44 10*3/uL 1.32-3.29 MONO x10^3 (test code = 742-7) 0.96 10*3/uL 0.33-0.92 H EOS x10^3 (test code = 711-2) 0.06 10*3/uL 0.03-0.39 BASO x10^3 (test code = 704-7) 0.05 10*3/uL 0.01-0.07 Lab Interpretation (test code = 78190-0) Abnormal [facility] URINALYSIS W/O SPECIFIC [id number] 15:22:00* Test Item Value Reference Range Interpretation Comme nts POCT PH U (test code = 3254) 6 mg/dl 5-8 POCT U LEUK EST (test code = 3263) negative Negative - Negative POCT U NIT (test code = 3262) negative Negative - Negati ve POCT U PROT (test code = 3259) negative Negative - Negat laly POCT U GLU (test code = 3256) negative Negative - Negati ve POCT U KETONE (test code = 3258) small Negative - Neg ative POCT U BLD (test code = 3257) Negative - Negati ve [facility] URINALYSIS W/O SPECIFIC [id number] 15:22:00* Test Item Value Reference Range Interpretation Comme nts POCT PH U (test code = 3254) 6 mg/dl 5-8 POCT U LEUK EST (test code = 3263) negative Negative - Negative POCT U NIT (test code = 3262) negative Negative - Negati ve POCT U PROT (test code = 3259) negative Negative - Negat laly POCT U GLU (test code = 3256) negative Negative - Negati ve POCT U KETONE (test code = 3258) small Negative - Neg ative POCT U BLD (test code = 3257) Negative - Negati ve [facility] URINALYSIS W/O SPECIFIC [id number] 19:33:00* Test Item Value Reference Range Interpretation Comme nts POCT PH U (test code = 3254) 5 mg/dl 5-8 POCT U LEUK EST (test code = 3263) trace Negative - Negative POCT U NIT (test code = 3262) negative Negative - Negati ve POCT U PROT (test code = 3259) trace Negative - Negat laly POCT U GLU (test code = 3256) negative Negative - Negati ve POCT U KETONE (test code = 3258) negative Negative - Neg ative POCT U BLD (test code = 3257) Negative - Negati ve [facility] URINALYSIS W/O SPECIFIC [id number] 22:26:00* Test Item Value Reference Range Interpretation Comme nts POCT PH U (test code = 3254) n/a 5-8 POCT U LEUK EST (test code = 3263) n/a Negative - Negative POCT U NIT (test code = 3262) n/a Negative - Negati ve POCT U PROT (test code = 3259) trace Negative - Negat laly POCT U GLU (test code = 3256) negative Negative - Negati ve POCT U KETONE (test code = 3258) n/a Negative - Neg ative POCT U BLD (test code = 3257) n/a Negative - Negati ve [facility] URINALYSIS W/O SPECIFIC [id number] 20:56:00* Test Item Value Reference Range Interpretation Comme nts POCT PH U (test code = 3254) n/a 5-8 POCT U LEUK EST (test code = 3263) n/a Negative - Negative POCT U NIT (test code = 3262) n/a Negative - Negati ve POCT U PROT (test code = 3259) Negative Negative - Negat laly POCT U GLU (test code = 3256) Normal Negative - Negati ve POCT U KETONE (test code = 3258) n/a Negative - Neg ative POCT U BLD (test code = 3257) n/a Negative - Negati ve [facility] URINALYSIS W/O SPECIFIC [id number] 18:13:00* Test Item Value Reference Range Interpretation Comme nts POCT PH U (test code = 3254) n/a 5-8 POCT U LEUK EST (test code = 3263) n/a Negative - Negative POCT U NIT (test code = 3262) n/a Negative - Negati ve POCT U PROT (test code = 3259) Negative Negative - Negat laly POCT U GLU (test code = 3256) Normal Negative - Negati ve POCT U KETONE (test code = 3258) n/a Negative - Neg ative POCT U BLD (test code = 3257) n/a Negative - Negati ve [facility] [id number] 20:51:00* Test Item Value Reference Range Interpretation Comme nts POCT PREG (test code = 1605) negative On board controls acceptable with C Line (test code = 3574) present POCT PREG LOT # (test code = 3575) [id number] POCT PREG TEST DATE ( test code = 3576) Lab Interpretation (test cod e = 28338-1) Normal [facility] URINALYSIS W/O SPECIFIC [id number] 16:20:00* Test Item Value Reference Range Interpretation Comme nts POCT PH U (test code = 3254) n/a 5-8 POCT U LEUK EST (test code = 3263) n/a Negative - N egative POCT U NIT (test code = 3262) n/a Negative - Negati ve POCT U PROT (test code = 4539) neg Negative - Negat laly POCT U GLU (test code = 7576) neg Negative - Negati ve POCT U KETONE (test code = 8598) n/a Negative - Neg ative POCT U BLD (test code = 7907) n/a Negative - Negati ve [facility]
[2024-02-18 00:04] LABS: Absolute Eosinophils 0.1 K/uL (0-0.5); Absolute Lymphocytes (CBC) 2.5 K/uL (0.7-4.9); Absolute Monocytes 0.6 K/uL (0.1-1.3); Basophils % 0.4 % (0-1.3); Eosinophils % 0.9 % (0-4.4); Hematocrit 42.7 % (36.0-45.0); Hemoglobin 13.6 g/dL (12.0-15.0); Lymphocytes % 35.1 % (15.3-44.8); MCH 26.3 pg (27.0-35.0); MCHC 31.8 g/dL (32.0-36.0); MCV 82.7 fL (80-100); MPV 7.6 fL (7.6-11.3); Monocytes % 8.4 % (3.3-12.3); Neutrophils % 55.2 % (41.7-73.7); Nucleated Red Blood Cells % 0.1 % (0-0); Platelets 262 thou/uL (152-406); RBC Red Blood Cell Count 5.17 M/uL (3.86-4.86); Red Cell Distribution Width 13.9 % (12.1-15.2)
[2024-02-18 00:29] LABS: Anion Gap 7.5 mEq/L (5.0-15.0); BUN Blood Urea Nitrogen 10 mg/dL (7-18); Bicarbonate 26 mEq/L (21-32); Glomerular Filtration Rate 80 ml/min (=/>90); Glucose Level 103 mg/dL (74-106); Magnesium 1.9 mg/dL (1.6-2.4); NT PRO-BNP 46 pg/mL (<125); Potassium 3.5 mEq/L (3.5-5.1); Sodium Level 138 mEq/L (136-145)
[2024-02-18 00:33] LABS: Troponin High Sensitivity < 3.0 pg/mL (<58.9)
[2024-02-18 01:30] LABS: Specific Gravity < 1.005 (1.005-1.030)
[2024-02-18 01:57] LABS: Specific Gravity < 1.005 (1.005-1.030); Sqamous Epithelial <5 /HPF (None Seen); Urine Bacteria <20 /HPF (<20); Urine Bilirubin NEGATIVE (Negative); Urine Blood Negative (Negative); Urine Clarity Clear (Clear); Urine Color Colorless (Yellow); Urine Culture Reflex Order NOT NEEDED; Urine Glucose NEGATIVE (Negative); Urine Ketones NEGATIVE (Negative); Urine Micro Reflex YN NO BILL MICROSCOPIC; Urine Nitrite NEGATIVE (Negative); Urine Protein NEGATIVE (Negative); Urine RBC None Seen /HPF (None Seen); Urine Urobilinogen Normal (Normal); Urine WBC <5 /HPF (<5)
--- NOTE | 2024-02-18 01:58 | EDPHYS ---
Physician Documentation [facility] Name: Tigist Choudhary Age: 23 yrs Sex: Female : 2000 Arrival Date: 02/17/2024 Time: 22:11 Bed IW2 Private MD: ED Physician Ajay Norris HPI: 02/16 23:33 This 23 yrs old Female presents to ER via Ambulatory with complaints of Chest sb4 Tightness, Shoulder Pain - Left. 23:33 Patient reports chest tightness and left shoulder pain that she has had intermittently sb4 for quite some time now but got worse last night. She does have a history of anxiety and takes hydroxyzine as needed that does typically help. States that the tightness in her chest got worse last night so she went to urgent care. States that no tests were done and she was given a Xanax and sent home with a prescription for Xanax without any test done. States that she felt groggy, dizzy, "heavy "all day and is still experiencing chest tightness. ROS: 23:33 Constitutional: Negative for fever, chills, and weight loss, sb4 23:33 Cardiovascular: Positive for chest pain, 23:33 Psych: Positive for anxiety, 23:33 All other systems are negative, Exam: 23:33 Head/Face: Normocephalic, atraumatic. Eyes: Extra-ocular motions intact. Periorbital sb4 areas with no swelling, redness, or edema. ENT: Mucous membranes moist. Cardiovascular: Regular rate and rhythm with a normal S1 and S2. Respiratory: No increased work of breathing, no retractions or nasal flaring. Skin: Warm, dry with normal turgor. Normal color with no rashes, no lesions, and no evidence of cellulitis. 23:33 Constitutional: The patient appears alert, awake, anxious, tearful Vital Signs: 22:46 BP 146 / 104; Pulse 90; Resp 18; Temp 97.6; Pulse Ox 99% ; Weight 79.38 kg; Height 5 cg ft. 5 in. ; 22:46 Pain 2/10; cg 22:46 Body Mass Index 29.12 (79.38 kg, 165.1 cm) cg 22:46 Pain Scale: Adult cg MDM: 23:14 Medical Screening Exam initiated sb4 02/17 00:17 ED course: years algorithm excludes PE- patient is not , no clinical signs of sb4 DVT, no hemoptysis, PE is not most likely diagnosis. ddimer is elevated but less than 1,000. 00:45 Data reviewed: vital signs, nurses notes, lab test result(s), EKG, radiologic studies, sb4 and as a result, I will discharge patient. Counseling: I had a detailed discussion with the patient and/or guardian regarding the historical points, exam findings, and any diagnostic results supporting the discharge/admit diagnosis, lab results, radiology results, the need for outpatient follow up, for definitive care, to return to the emergency department if symptoms worsen or persist or if there are any questions or concerns that arise at home. 00:48 Scoring Tools HEART Score: History: ECG: Age: Risk Factors: No Risk Factors Known (0), sb4 Troponin: Total Score = 0. 02/16 23:15 Order name: Basic Metabolic Panel; Complete Time: 00:34 sb4 02/16 23:15 Order name: CBC with Diff; Complete Time: 00:08 sb4 02/16 23:15 Order name: D-Dimer; Complete Time: 00:16 sb4 02/16 23:15 Order name: Magnesium; Complete Time: 00:34 sb4 02/16 23:15 Order name: NT PRO-BNP; Complete Time: 00:34 sb4 02/16 23:15 Order name: Troponin HS; Complete Time: 00:34 sb4 02/16 23:15 Order name: UAM; Complete Time: 01:58 sb4 02/16 23:15 Order name: Test, Urine; Complete Time: 01:31 sb4 02/16 23:15 Order name: TSH; Complete Time: 00:34 sb4 02/16 23:15 Order name: XRAY Chest (1 view) sb4 02/16 23:15 Order name: EKG; Complete Time: 23:16 sb4 02/16 23:15 Order name: EKG - Nurse/Tech; Complete Time: 23:34 sb4 02/16 23:15 Order name: IV Saline Lock; Complete Time: 23:35 sb4 02/16 23:15 Order name: Labs collected and sent; Complete Time: 23:35 sb4 EC/10 23:29 Rate is 88 beats/min. Rhythm is irregular, Sinus arrythmia. [place] interval is normal at sb4 136 msec. QRS interval is normal at 76 msec. QT interval is normal at 366 msec. No Q waves. T waves are Normal. No ST changes noted. Clinical impression: No evidence of ischemia. Interpreted by me. Reviewed by me. Administered Medications: No medications were administered Disposition: 02/17 05:58 Co-signature as Attending Physician, Ajay Norris MD I agree with the assessment sp4 and plan of care. I reviewed the patient's care provided by the Advanced Practice Provider and agree with the diagnosis and treatment plan. Disposition Summary: 02/18/24 01:58 Discharge Ordered Notes: Location: Home sb4 Problem: an ongoing problem sb4 Symptoms: have improved sb4 Condition: Stable sb4 Diagnosis - Anxiety disorder, unspecified sb4 - Chest pain, unspecified sb4 Followup: sb4 - With: Jenni Tan DO - When: 2 - 3 days - Reason: Further diagnostic work-up, Recheck today's complaints, Re-evaluation by your physician Discharge Instructions: - Discharge Summary Sheet sb4 - Nonspecific Chest Pain, Adult sb4 - Managing Anxiety, Adult sb4 Forms: - Patient Portal Instructions sb4 - Leadership Thank You Letter sb4 Signatures: Dispatcher [employer] EDConcepción Kim PA-C PA-C sb4 Ajay Norris MD MD sp4 Corrections: (The following items were deleted from the chart) 02/16 23:16 23:16 BASIC METABOLIC PANEL+C.LAB.BRZ ordered. EDMS EDMS 23:16 23:16 CBC+H.LAB.BRZ ordered. EDMS EDMS 23:16 23:16 D-DIMER+COAG.LAB.BRZ ordered. EDMS EDMS 23:16 23:16 MAGNESIUM+C.LAB.BRZ ordered. EDMS EDMS 23:16 23:16 PROBNP+C.LAB.BRZ ordered. EDMS EDMS 23:16 23:16 Troponin High Sensitivity+C.LAB.BRZ ordered. EDMS EDMS 23:16 23:16 Urinalysis W/Microscopic+U.LAB.BRZ ordered. EDMS EDMS 23:16 23:16 Test, Urine+UC.LAB.BRZ ordered. EDMS EDMS 23:16 23:16 THYROID STIMULAT HORMONE+C.LAB.BRZ ordered. EDMS EDMS 02/17 00:18 00:17 ED course: years algorithm excludes PE- patient is not , no clinical sb4 signs of DVT, no hemoptysis, PE is not most likely diagnosis. ddimer is elevated at 0.7 but less than 1,000. sb4 02/16 23:15 Cardiac monitoring ordered. sb4 sb4 02/17 23:15 Oxygen Per Protocol ordered. sb4 sb4 02/17 23:15 O2 Sat Monitoring ordered. sb4 sb4
--- NOTE | 2024-02-18 01:58 | ER ---
Nurse's Notes [facility] Name: Tigist Choudhary Age: 23 yrs Sex: Female : 2000 Arrival Date: 02/17/2024 Time: 22:11 Bed IW2 Private MD: Diagnosis: Anxiety disorder, unspecified;Chest pain, unspecified Presentation: 02/16 22:46 Chief complaint: Patient states: c/o chest pressure and nausea. Went to [place] yesterday cg for chest pressure and diagnosed with anxiety. Today body feels heavy and feeling dizzy. Coronavirus screen: Vaccine status: Patient reports being unvaccinated. Client denies travel out of the [place] in the last 14 days. At this time, the client does not indicate any symptoms associated with coronavirus-19. Ebola Screen: Patient negative for fever greater than or equal to 101.5 degrees Fahrenheit, and additional compatible Ebola Virus Disease symptoms. Initial Sepsis Screen: Does the patient meet any 2 criteria? No. Patient's initial sepsis screen is negative. Risk Assessment: Do you want to hurt yourself or someone else? Patient reports no desire to harm self or others. Onset of symptoms was February 16, 2024. 22:46 Method Of Arrival: Ambulatory cg 22:46 Acuity: TIMUR 3 cg Screenin/11 02:16 [facility] ED Fall Risk Assessment (Adult) History of falling in the last 3 months, jb4 including since admission No falls in past 3 months (0 pts) Confusion or Disorientation No (0 pts) Intoxicated or Sedated No (0 pts) Impaired Gait No (0 pts) Mobility Assist Device Used No (0 pt) Altered Elimination No (0 pt) Score/Fall Risk Level 0 - 2 = Low Risk Oriented to surroundings, Maintained a safe environment. Abuse screen: Denies threats or abuse. Nutritional screening: No deficits noted. Tuberculosis screening: No symptoms or risk factors identified. Assessment: 02:16 General: Appears in no apparent distress. comfortable, Behavior is calm, cooperative, jb4 appropriate for age. Pain: Complains of pain in chest Pain does not radiate. Pain currently is 4 out of 10 on a pain scale. Neuro: Level of Consciousness is awake, alert, obeys commands, Oriented to person, place, time, situation. Cardiovascular: Patient's skin is warm and dry. Respiratory: Airway is patent Respiratory effort is even, unlabored, Respiratory pattern is regular, symmetrical. Derm: Skin is intact, Skin is pink, warm \T\ dry. Musculoskeletal: Circulation, motion, and sensation intact. Range of motion: intact in all extremities. Vital Signs: 12 22:46 BP 146 / 104; Pulse 90; Resp 18; Temp 97.6; Pulse Ox 99% ; Weight 79.38 kg; Height 5 cg ft. 5 in. ; 22:46 Pain 2/10; cg 22:46 Body Mass Index 29.12 (79.38 kg, 165.1 cm) cg 22:46 Pain Scale: Adult cg ED Course: 22:14 Patient arrived in ED. ra3 22:14 Concepción Mishra PA-C is PHCP. sb4 22:14 Ajay Norris MD is Attending Physician. sb4 22:50 Triage completed. cg 23:26 Initial lab(s) drawn, by ED staff, sent to lab. EKG done, by ED staff, reviewed by lg3 Concepción Mishra PA-C. Inserted saline lock: 22 gauge in left antecubital area, using aseptic technique. Blood collected. Flushed with 10 mL NS. 23:35 Basic Metabolic Panel Sent. vk 23:35 CBC with Diff Sent. vk 23:35 D-Dimer Sent. vk 23:35 Magnesium Sent. vk 23:35 NT PRO-BNP Sent. vk 23:35 Troponin HS Sent. vk 23:53 XRAY Chest (1 view) In Process Unspecified. EDMS 02/17 00:45 Test, Urine Sent. vk 00:45 UAM Sent. vk 00:45 Urine collected: clean catch specimen, clear. vk 01:58 Jenni Tan DO is Referral Physician. sb4 02:16 No provider procedures requiring assistance completed. IV discontinued, intact, jb4 bleeding controlled, No redness/swelling at site. Pressure dressing applied. Patient maintains SpO2 saturation greater than 95% on room air. 02:16 Patient has correct armband on for positive identification. Call light in reach. Side jb4 rails up X 1. Provided Education on: discharge intructions.. Administered Medications: No medications were administered Medication: 02:16 VIS not applicable for this client. jb4 Outcome: 01:58 Discharge ordered by . sb4 02:16 Discharged to home ambulatory, jb4 02:16 Condition: stable 02:16 Discharge instructions given to patient, Instructed on discharge instructions, follow up and referral plans. Demonstrated understanding of instructions, follow-up care, 02:18 Patient left the ED. jb4 Signatures: Dispatcher [employer] Catherine Fajardo, RN RN Bharathi Woodruff RN RN jb4 Destinee Villarreal RN RN lg3 Concepción Mishra, MANOLO PABreann Kennedy ra3 Keyla Zurita
[2024-02-18 02:23] VITALS: BP 146/104; TEMP 97.6; O2SAT 99
--- NOTE | 2024-02-18 05:48 | RAD REPORT ---
EXAM: ONE VIEW CHEST X-RAY INDICATION: 23-year-old female with chest pain. COMPARISON: Chest x-ray report from 09/01/2022, images are currently unavailable. FINDINGS: A single AP portable upright view of the chest was obtained. No consolidation, pulmonary venous hypertension, pneumothorax, or significant pleural effusion. Cardiac silhouette is normal in size. No acute osseous abnormality. IMPRESSION: 1. No acute cardiopulmonary process. Electronically signed by: Zhou Gallegos MD 02/18/2024 12:19 AM [facility] Due to temporary technical issues with the [employer] reporting system, reports are being fernando d by the in-house radiologist without review as a courtesy to ensure prompt reporting the interpreting radiologist is fully responsible for the content of the report. Transcribed Date/Time: 02/18/2024 5:48 AM
--- NOTE | 2024-02-20 15:53 | EKG ---
Test Date: 2024-02-17 Test Time: 23:27:52 Teacher Cclc: KARRIE MEASUREMENT RESULTS: Intervals: Rate: 88 AR: 136 QRSD: 76 QT: 366 QTc: 442 [place]: P: 65 AR: 136 QRS: 33 T: 56 INTERPRETIVE STATEMENTS: Normal sinus rhythm with sinus arrhythmia Normal ECG No previous ECG available for comparison Electronically Signed On 02-20-24 15:49:22 [employer]PERVISOR FIN[employer] by Vega Quigley
== END 2024-02-18 02:18 | disposition home or self-care (01) ==
LOC: ER 22:11
DX: F41.9 Anxiety disorder, unspecified (principal); M25.512 Pain in left shoulder
CPT/HCPCS: 36415; 71045; 80048; 81001; 81025; 83735; 83880; 84443; 84484; 85025; 85379; 93005; 99284